=== PATIENT | male | born 1975 | race Caucasian/White ===

== ENCOUNTER 2018-01-15 19:57 | Emergency (ER) | payer SELFPAY ==
[2018-01-15 20:27] VITALS: BP 156/91
[2018-01-15 21:01] LABS: Basophils # (Auto) 0.1 K/mm3 (0.0-0.1); Basophils % (Auto) 0.8 % (0.0-1.8); Eosinophils # (Auto) 0.1 K/mm3 (0.0-0.4); Eosinophils % (Auto) 1.8 % (0.0-4.3); Hematocrit 48.5 % (35.5-45.6); Hemoglobin 15.8 gm/dl (11.8-15.2); Lymphocytes # (Auto) 1.8 K/mm3 (1.2-5.4); Lymphocytes % (Auto) 23.2 % (13.4-35.0); Mean Corpuscular HGB Conc 33 % (32-34); Mean Corpuscular Hemoglobin 28 pg (28-32); Mean Corpuscular Volume 84 fl (84-94); Monocytes # (Auto) 0.8 K/mm3 (0.0-0.8); Monocytes % (Auto) 10.7 % (0.0-7.3); Platelet Count 219 K/mm3 (140-440); Red Blood Count 5.75 M/mm3 (3.65-5.03); Red Cell Distribution Width 14.9 % (13.2-15.2)
[2018-01-15 21:12] LABS: BUN/Creatinine Ratio 13; Blood Urea Nitrogen 16 mg/dL (9-20); Calcium 9.3 mg/dL (8.4-10.2); Hemolysis Index 35
== END 2018-01-15 20:29 | disposition left against medical advice (07) ==
LOC: ED 19:57
DX: R07.9 Chest pain, unspecified (principal); Z53.21 Procedure and treatment not carried out due to patient leaving prior to being seen by health care provider
CPT/HCPCS: 36415; 80048; 84484; 85025; 93005; 93010

== ENCOUNTER 2018-08-19 17:48 | Emergency (ER) | payer SELFPAY ==
[2018-08-19 18:47] LABS: Basophils # (Auto) 0.1 K/mm3 (0.0-0.1); Basophils % (Auto) 1.4 % (0.0-1.8); Eosinophils # (Auto) 0.1 K/mm3 (0.0-0.4); Eosinophils % (Auto) 1.6 % (0.0-4.3); Hemoglobin 15.4 gm/dl (11.8-15.2); Lymphocytes # (Auto) 1.9 K/mm3 (1.2-5.4); Lymphocytes % (Auto) 26.5 % (13.4-35.0); Mean Corpuscular HGB Conc 34 % (32-34); Mean Corpuscular Volume 83 fl (84-94); Monocytes # (Auto) 0.7 K/mm3 (0.0-0.8); Monocytes % (Auto) 9.8 % (0.0-7.3); Platelet Count 275 K/mm3 (140-440); Red Blood Count 5.55 M/mm3 (3.65-5.03); Red Cell Distribution Width 14.5 % (13.2-15.2)
[2018-08-19 19:41] LABS: BUN/Creatinine Ratio 13; Blood Urea Nitrogen 16 mg/dL (9-20); Calcium 8.9 mg/dL (8.4-10.2); Hemolysis Index 69
--- NOTE | 2018-08-19 22:43 | Emergency Department Report ---
ED Psych HPI - General Chief Complaint: Psych Stated Complaint: HEARING THINGS/SEEING THINGS Time Seen by Provider: 08/19/18 21:30 Source: patient Mode of arrival: Ambulatory Limitations: No Limitations - History of Present Illness Initial Comments: 43-year-old male with a past medical history hypertension, asthma, anemia, CAD with stents presents also complains of hallucinations and suicidal thoughts. Patient has been off all his medications including blood pressure and psychiatric medications for the past 2 months. Patient states he felt like he was handling his psychiatric symptoms "on his own". Patient having visual and auditory hallucinations. He is hearing voices screaming at him and seeing shadows. He had thoughts of running out in front of a car to kill himself. He has history of previous suicidal attempts. He denies any physical complaints. He is calm and cooperative at this time. - Related Data Home Medications Medication Instructions Recorded Confirmed Last Taken Lisinopril [Zestril] 10 mg PO QDAY 05/23/18 08/19/18 Unknown Allergies Allergy/AdvReac Type Severity Reaction Status Date / Time haloperidol [From Haldol] Allergy Swelling Verified 05/21/18 05:41 ED Review of Systems ROS: Stated complaint: HEARING THINGS/SEEING THINGS Other details as noted in HPI Comment: All other systems reviewed and negative ED Past Medical Hx - Past Medical History Previous Medical History?: Yes Hx Hypertension: Yes Hx Psychiatric Treatment: Yes (schizo) Hx Asthma: Yes - Surgical History Past Surgical History?: Yes Hx Coronary Stent: Yes Additional Surgical History: stents x 2 - Social History Smoking Status: Current Every Day Smoker Substance Use Type: Alcohol, Cocaine, Heroin - Medications Home Medications: Home Medications Medication Instructions Recorded Confirmed Last Taken Type Lisinopril [Zestril] 10 mg PO QDAY 05/23/18 08/19/18 Unknown History ED Physical Exam - General Limitations: No Limitations - Other Other exam information: General: No limitations, patient is alert in no acute distress Head exam: Atraumatic, normocephalic Eyes exam: Normal appearance, pupils equal reactive to light, extraocular movements intact ENT: Moist mucous membrane, normal oropharynx Neck exam: Normal inspection, full range of motion, no meningismus nontender Respiratory exam: Clear to auscultation bilateral, no wheezes, rales, crackles Cardiovascular: Normal rate and rhythm Abdomen: Soft, nondistended, and nontender, with normal bowel sounds, no rebound, or guarding Extremity: Full range of motion normal inspection no deformity Back: Normal Inspection, full range of motion, no tenderness Neurologic: Alert, oriented x3, cranial nerves intact, no motor or sensory deficit Psychiatric: normal affect, normal mood Skin: Warm, dry, intact ED Course Vital Signs 08/19/18 08/19/18 17:52 21:59 Temperature 98.5 F 97.8 F Pulse Rate 100 H 72 Respiratory 18 16 Rate Blood Pressure 166/88 Blood Pressure 108/60 [Left] O2 Sat by Pulse 99 100 Oximetry ED Medical Decision Making - Lab Data Result diagrams: 08/19/18 18:26 08/19/18 18:26 Lab Results 08/19/18 08/19/18 08/19/18 Range/Units 18:26 18:26 18:26 WBC (4.5-11.0) K/mm3 RBC (3.65-5.03) M/mm3 Hgb (11.8-15.2) gm/dl Hct (35.5-45.6) % MCV (84-94) fl MCH (28-32) pg MCHC (32-34) % RDW (13.2-15.2) % Plt Count (140-440) K/mm3 Lymph % (Auto) (13.4-35.0) % [place] % (Auto) (0.0-7.3) % Eos % (Auto) (0.0-4.3) % Baso % (Auto) (0.0-1.8) % Lymph # (1.2-5.4) K/mm3 [place] # (0.0-0.8) K/mm3 Eos # (0.0-0.4) K/mm3 Baso # (0.0-0.1) K/mm3 Seg Neutrophils % (40.0-70.0) % Seg Neutrophils # (1.8-7.7) K/mm3 Sodium 140 (137-145) mmol/L Potassium 4.2 (3.6-5.0) mmol/L Chloride 101.7 (98-107) mmol/L Carbon Dioxide 25 (22-30) mmol/L Anion Gap 18 mmol/L BUN 16 (9-20) mg/dL Creatinine 1.2 (0.8-1.5) mg/dL Estimated GFR > 60 ml/min BUN/Creatinine Ratio 13 % Glucose 104 H (75-100) mg/dL Calcium 8.9 (8.4-10.2) mg/dL Urine Color (Yellow) Urine Turbidity (Clear) Urine pH (5.0-7.0) Ur Specific [place] (1.003-1.030) Urine Protein (Negative) mg/dL Urine Glucose (UA) (Negative) mg/dL Urine Ketones (Negative) mg/dL Urine Blood (Negative) Urine Nitrite (Negative) Urine Bilirubin (Negative) Urine Urobilinogen (<2.0) mg/dL Ur Leukocyte Esterase (Negative) Urine WBC (Auto) (0.0-6.0) /HPF Urine RBC (Auto) (0.0-6.0) /HPF Urine Mucus /HPF Salicylates < 0.3 L (2.8-20.0) mg/dL Urine Opiates Screen Urine Methadone Screen Acetaminophen < 5.0 L (10.0-30.0) ug/mL Ur Barbiturates Screen Ur Phencyclidine Scrn Ur Amphetamines Screen U Benzodiazepines Scrn Urine Cocaine Screen U Marijuana (THC) Screen Drugs of Abuse Note Plasma/Serum Alcohol (0-0.07) % 08/19/18 08/19/18 08/19/18 Range/Units 18:26 18:26 22:26 WBC 7.1 (4.5-11.0) K/mm3 RBC 5.55 H (3.65-5.03) M/mm3 Hgb 15.4 H (11.8-15.2) gm/dl Hct 46.0 H (35.5-45.6) % MCV 83 L (84-94) fl MCH 28 (28-32) pg MCHC 34 (32-34) % RDW 14.5 (13.2-15.2) % Plt Count 275 (140-440) K/mm3 Lymph % (Auto) 26.5 (13.4-35.0) % [place] % (Auto) 9.8 H (0.0-7.3) % Eos % (Auto) 1.6 (0.0-4.3) % Baso % (Auto) 1.4 (0.0-1.8) % Lymph # 1.9 (1.2-5.4) K/mm3 [place] # 0.7 (0.0-0.8) K/mm3 Eos # 0.1 (0.0-0.4) K/mm3 Baso # 0.1 (0.0-0.1) K/mm3 Seg Neutrophils % 60.7 (40.0-70.0) % Seg Neutrophils # 4.3 (1.8-7.7) K/mm3 Sodium (137-145) mmol/L Potassium (3.6-5.0) mmol/L Chloride (98-107) mmol/L Carbon Dioxide (22-30) mmol/L Anion Gap mmol/L BUN (9-20) mg/dL Creatinine (0.8-1.5) mg/dL Estimated GFR ml/min BUN/Creatinine Ratio % Glucose (75-100) mg/dL Calcium (8.4-10.2) mg/dL Urine Color Yellow (Yellow) Urine Turbidity Clear (Clear) Urine pH 5.0 (5.0-7.0) Ur Specific [place] 1.025 (1.003-1.030) Urine Protein <15 mg/dl (Negative) mg/dL Urine Glucose (UA) Neg (Negative) mg/dL Urine Ketones Tr (Negative) mg/dL Urine Blood Neg (Negative) Urine Nitrite Neg (Negative) Urine Bilirubin Neg (Negative) Urine Urobilinogen 2.0 (<2.0) mg/dL Ur Leukocyte Esterase Neg (Negative) Urine WBC (Auto) < 1.0 (0.0-6.0) /HPF Urine RBC (Auto) 1.0 (0.0-6.0) /HPF Urine Mucus Few /HPF Salicylates (2.8-20.0) mg/dL Urine Opiates Screen Urine Methadone Screen Acetaminophen (10.0-30.0) ug/mL Ur Barbiturates Screen Ur Phencyclidine Scrn Ur Amphetamines Screen U Benzodiazepines Scrn Urine Cocaine Screen U Marijuana (THC) Screen Drugs of Abuse Note Plasma/Serum Alcohol < 0.01 (0-0.07) % 08/19/18 Range/Units 22:26 WBC (4.5-11.0) K/mm3 RBC (3.65-5.03) M/mm3 Hgb (11.8-15.2) gm/dl Hct (35.5-45.6) % MCV (84-94) fl MCH (28-32) pg MCHC (32-34) % RDW (13.2-15.2) % Plt Count (140-440) K/mm3 Lymph % (Auto) (13.4-35.0) % [place] % (Auto) (0.0-7.3) % Eos % (Auto) (0.0-4.3) % Baso % (Auto) (0.0-1.8) % Lymph # (1.2-5.4) K/mm3 [place] # (0.0-0.8) K/mm3 Eos # (0.0-0.4) K/mm3 Baso # (0.0-0.1) K/mm3 Seg Neutrophils % (40.0-70.0) % Seg Neutrophils # (1.8-7.7) K/mm3 Sodium (137-145) mmol/L Potassium (3.6-5.0) mmol/L Chloride (98-107) mmol/L Carbon Dioxide (22-30) mmol/L Anion Gap mmol/L BUN (9-20) mg/dL Creatinine (0.8-1.5) mg/dL Estimated GFR ml/min BUN/Creatinine Ratio % Glucose (75-100) mg/dL Calcium (8.4-10.2) mg/dL Urine Color (Yellow) Urine Turbidity (Clear) Urine pH (5.0-7.0) Ur Specific [place] (1.003-1.030) Urine Protein (Negative) mg/dL Urine Glucose (UA) (Negative) mg/dL Urine Ketones (Negative) mg/dL Urine Blood (Negative) Urine Nitrite (Negative) Urine Bilirubin (Negative) Urine Urobilinogen (<2.0) mg/dL Ur Leukocyte Esterase (Negative) Urine WBC (Auto) (0.0-6.0) /HPF Urine RBC (Auto) (0.0-6.0) /HPF Urine Mucus /HPF Salicylates (2.8-20.0) mg/dL Urine Opiates Screen Presumptive negative Urine Methadone Screen Presumptive negative Acetaminophen (10.0-30.0) ug/mL Ur Barbiturates Screen Presumptive negative Ur Phencyclidine Scrn Presumptive negative Ur Amphetamines Screen Presumptive negative U Benzodiazepines Scrn Presumptive negative Urine Cocaine Screen Presumptive positive U Marijuana (THC) Screen Presumptive negative Drugs of Abuse Note Disclamer Plasma/Serum Alcohol (0-0.07) % - Medical Decision Making Patient requires psychiatric admission. Patient is medically cleared. 1013 and transfer forms signed. - Differential Diagnosis psychosis, HI, SI, noncompliance Critical Care Time: No Critical care attestation.: If time is entered above; I have spent that time in minutes in the direct care of this critically ill patient, excluding procedure time. ED Disposition Clinical Impression: Schizophrenia, Psychosis, Cocaine abuse, Medical clearance for psychiatric admission, Suicidal ideation Disposition: DC/TX-65 PSY HOSP/PSY UNIT Is pt being admited?: No Does the pt Need Aspirin: No Condition: Stable Time of Disposition: 02:47 (awaiting acceptance)
[2018-08-19 22:49] LABS: Bilirubin,Urine NEG (Negative); Blood,Urine NEG (Negative); Color,Urine Yellow (Yellow); Mucus,Urine FEW /HPF; Protein,Urine <15 mg/dL mg/dL (Negative); WBC,Urine < 1.0 /HPF (0.0-6.0)
[2018-08-20 00:27] LABS: Amphetamine Screen,Urine PRESUMPTIVE NEGATIVE; Benzodiazepines Screen,Urine PRESUMPTIVE NEGATIVE; Cannabinoid Screen,Urine PRESUMPTIVE NEGATIVE; Methadone Screen,Urine PRESUMPTIVE NEGATIVE; Opiate Screen,Urine PRESUMPTIVE NEGATIVE
[2018-08-20 00:49] LABS: Cocaine Screen,Urine PRESUMPTIVE POSITIVE
[2018-08-20] MEDS: ZESTRIL PO SCH (10:30)
[2018-08-20] MEDS: ASPIRIN PO SCH (10:35)
--- NOTE | 2018-08-20 14:08 | Consultation ---
History of Present Illness - Reason for Consult Consult date: 08/20/18 Reason for consult: Mental Health Evaluation Requesting physician: SIDRA WHEATLEY - Chief Complaint Chief complaint: "I be hearing all types of stuff" - History of Present Psychiatric Illness 43-year-old AA male who presented to the ER for Ah's and SI's. This patient is known to me. Today the patient is calm and cooperative, but tangent during the assessment. He stated that he felt strange the past 2 days because he was hearing a lot of voices. He stated that the voices was overwhelming, but he acknowledged using recreational drugs during this time. He stated that he was feeling suicidal along with hearing voices when not using "drugs." He stated, "I have no idea what's going on with me." He denies HI's and VH's. He would not confirm or deny SI's and AH's when asked. He denies a poor appetite, but stated that his sleep have been "off." He denies alcohol consumption (etoh). Medications and Allergies Allergies Allergy/AdvReac Type Severity Reaction Status Date / Time haloperidol [From Haldol] Allergy Swelling Verified 05/21/18 05:41 Home Medications Medication Instructions Recorded Confirmed Last Taken Type Lisinopril [Zestril] 10 mg PO QDAY 05/23/18 08/19/18 Unknown History Active Meds: Active Medications Aspirin (Aspirin) 325 mg PO QDAY [facility] Last Admin: 08/20/18 10:35 Dose: 325 mg Documented by: Lisinopril (Zestril) 10 mg PO QDAY [facility] Last Admin: 08/20/18 10:30 Dose: 10 mg Documented by: Past psychiatric history - Past Medical History Past Medical History: hypertension Past Surgical History: No surgical history - past Psychiatric treatment and history psychiatric treatment history: Hx of substance abuse. Denies a fam psy hx. - Social History Social history: lives with family Mental Status Exam - Vital signs Last Vital Signs Temp 98.3 F 08/20/18 14:06 Pulse 78 08/20/18 14:06 Resp 18 08/20/18 14:06 BP 134/69 08/20/18 14:06 Pulse Ox 98 08/20/18 14:06 - Exam Narrative exam: MSE: Appearance: calm, cooperative Behavior: regular eye contact Speech: regular rate and tone Mood: "okay" Affect: constricted Thought Process: tangential Thought Content: denies HI's and VH's, paranoia Motor Activity: sitting up in the bed Cognition: A/O x 3 Insight: variable Judgment: variable Results Result Diagrams: 08/19/18 18:26 08/19/18 18:26 Abnormal lab results 08/19/18 08/19/18 08/19/18 Range/Units 18:26 18:26 18:26 RBC (3.65-5.03) M/mm3 Hgb (11.8-15.2) gm/dl Hct (35.5-45.6) % MCV (84-94) fl [place] % (Auto) (0.0-7.3) % Glucose 104 H (75-100) mg/dL Salicylates < 0.3 L (2.8-20.0) mg/dL Acetaminophen < 5.0 L (10.0-30.0) ug/mL 08/19/18 Range/Units 18:26 RBC 5.55 H (3.65-5.03) M/mm3 Hgb 15.4 H (11.8-15.2) gm/dl Hct 46.0 H (35.5-45.6) % MCV 83 L (84-94) fl [place] % (Auto) 9.8 H (0.0-7.3) % Glucose (75-100) mg/dL Salicylates (2.8-20.0) mg/dL Acetaminophen (10.0-30.0) ug/mL All other labs normal. Assessment and Plan Assessment and plan: Impression: Unspecified Mood DO with psy features. Substance Use DO (cocaine). Today the patient is calm and cooperative, but tangent during the assessment. DDx: R/O Bipolar Do with psychosis, R/O Substance Induced Psychosis Recommendation/Plan: Continue 1013 and start Seroquel 100 mg Po HS for psychosis. Discussed the possible metabolic side effects of Seroquel with the patient. Dispo: The patient was referred to inpatient psy services. Will staff with Dr Jelani Barrow.
[2018-08-21] MEDS: ASPIRIN PO SCH (11:58)
[2018-08-21] MEDS: ZESTRIL PO SCH (11:59)
--- NOTE | 2018-08-21 13:55 | Progress Note ---
Subjective - Reason for Consult Consult date: 08/21/18 Reason for consult: Psychiatry Follow-up - Chief Complaint Chief complaint: "I will take my medication tonight" 3-year-old AA male who presented to the ER for Ah's and SI's. This patient is known to me. Today the patient is calm during the assessment. He stated that he feel "A little better." He stated that the voices are still active, but not as bad as yesterday per the patient. He was asked about why he refused the Seroquel last, he stated, "I thought I would get another pill." He denies SI/HI's and VH's. Mental Status Exam - Vital signs Last Vital Signs Temp 97.7 F 08/21/18 08:20 Pulse 75 08/21/18 11:59 Resp 18 08/21/18 08:20 BP 134/71 08/21/18 11:59 Pulse Ox 99 08/21/18 08:20 - Exam Narrative exam: MSE: Appearance: calm, cooperative Behavior: regular eye contact Speech: regular rate and tone Mood: "okay" Affect: constricted Thought Process: tangential Thought Content: denies SI/HI's and VH's Motor Activity: sitting up in the bed Cognition: A/O x 3 Insight: variable Judgment: fair Assessment and Plan Impression: Unspecified Mood DO with psy features. Substance Use DO (cocaine). Today the patient is calm during the assessment. DDx: R/O Bipolar Do with psychosis, R/O Substance Induced Psychosis Recommendation/Plan: Continue 1013 and continue Seroquel 100 mg Po HS for psychosis. Discussed the possible metabolic side effects of Seroquel with the patient. Dispo: The patient was referred to inpatient psy services. Will staff with Dr Simth Barrow.
[2018-08-22 05:19] VITALS: BP 117/69
--- NOTE | 2018-08-22 14:08 | Progress Note ---
Subjective - Reason for Consult Consult date: 08/22/18 Reason for consult: Psychiatric Follow-up Evaluation - Chief Complaint Chief complaint: Patient not seen. Accepted to [facility]. Mental Status Exam - Vital signs Last Vital Signs Temp 97.9 F 08/22/18 02:00 Pulse 76 08/22/18 02:00 Resp 16 08/22/18 02:00 BP 117/69 08/22/18 02:00 Pulse Ox 99 08/22/18 02:00 - Exam Narrative exam: Mental Status Exam Appearance: calm, cooperative Behavior: regular eye contact Speech: regular rate and tone Mood: "okay" Affect: constricted Thought Process: tangential Thought Content: denies SI/HI's and VH's Motor Activity: sitting up in the bed Cognition: A/O x 3 Insight: variable Judgment: fair Assessment and Plan Impression: Unspecified Mood DO with psy features. Substance Use DO (cocaine). Today the patient is calm during the assessment. DDx: R/O Bipolar Do with psychosis, R/O Substance Induced Psychosis Recommendation/Plan: Continue 1013 and continue Seroquel 100 mg Po HS for psychosis. Discussed the possible metabolic side effects of Seroquel with the patient. Disposition: The patient was referred to inpatient psy services. Will staff with Dr. Smith Barrow.
== END 2018-08-22 06:18 ==
LOC: ED 17:48 → EEVIPCON 17:48 → ED 08-22 06:18
DX: F39 Unspecified mood [affective] disorder (principal); F20.0 Paranoid schizophrenia; F23 Brief psychotic disorder; I10 Essential (primary) hypertension; J45.909 Unspecified asthma, uncomplicated; F17.200 Nicotine dependence, unspecified, uncomplicated; F12.10 Cannabis abuse, uncomplicated; F15.10 Other stimulant abuse, uncomplicated
CPT/HCPCS: 36415; 80048; 80307; 81001; 85025; 99285; G0480; 80320

== ENCOUNTER 2018-09-13 00:06 | Emergency (ER) | payer SELFPAY ==
[2018-09-13 01:36] LABS: Basophils # (Auto) 0.1 K/mm3 (0.0-0.1); Basophils % (Auto) 0.8 % (0.0-1.8); Eosinophils % (Auto) 0.4 % (0.0-4.3); Hematocrit 44.6 % (35.5-45.6); Hemoglobin 14.7 gm/dl (11.8-15.2); Lymphocytes % (Auto) 21.2 % (13.4-35.0); Mean Corpuscular HGB Conc 33 % (32-34); Mean Corpuscular Hemoglobin 27 pg (28-32); Mean Corpuscular Volume 82 fl (84-94); Monocytes # (Auto) 0.8 K/mm3 (0.0-0.8); Platelet Count 284 K/mm3 (140-440); Red Blood Count 5.42 M/mm3 (3.65-5.03); Red Cell Distribution Width 14.4 % (13.2-15.2)
[2018-09-13 01:59] LABS: BUN/Creatinine Ratio 11; Blood Urea Nitrogen 13 mg/dL (9-20); Calcium 8.7 mg/dL (8.4-10.2); Hemolysis Index 13
--- NOTE | 2018-09-13 02:28 | Emergency Department Report ---
HPI - General Chief Complaint: Psych Time Seen by Provider: 09/13/18 02:14 - HPI HPI: Room 6 The patient is a 43-year-old male presenting with a chief complaint of suicidal ideation and hallucinations. The patient states he's had suicidal ideation for approximately one week since the of his grandmother. The patient states his plan was to walk in front of a vehicle but he denies any active attempt at harming himself. Patient also admits to auditory and visual hallucinations since yesterday. The patient states he is seeing people that he knows are not there. Patient admits to auditory hallucinations hearing "screaming" inside of his head. Patient admits to using Celena and cocaine today Location: Mental state Duration: [See above] Quality: Suicidal Severity: Severe Modifying factors: [see above] Context: [see above] Mode of transportation: [not driving] ED Past Medical Hx - Past Medical History Hx Hypertension: Yes Hx Psychiatric Treatment: Yes (schizophrenia) Hx Asthma: Yes - Surgical History Hx Coronary Stent: Yes Additional Surgical History: stents x 2 - Family History Family history: no significant - Social History Smoking Status: Current Every Day Smoker (1/2 pack per day) Substance Use Type: Alcohol (occasional), Cocaine, Heroin, Other (Celena) - Medications Home Medications: Home Medications Medication Instructions Recorded Confirmed Last Taken Type Lisinopril [Zestril] 10 mg PO QDAY 05/23/18 08/19/18 Unknown History ED Review of Systems ROS: Stated complaint: MH EVAL Other details as noted in HPI Constitutional: no symptoms reported Eyes: denies: eye pain ENT: denies: throat pain Respiratory: no symptoms reported Cardiovascular: denies: chest pain Endocrine: no symptoms reported Gastrointestinal: denies: abdominal pain Genitourinary: denies: dysuria Musculoskeletal: denies: back pain Neurological: denies: headache Psychiatric: auditory hallucinations, visual hallucinations, suicidal thoughts. denies: homicidal thoughts Physical Exam - Physical Exam Vital Signs: Vital Signs 09/13/18 01:04 Temperature 98.3 F Pulse Rate 94 H Respiratory 18 Rate Blood Pressure 140/80 O2 Sat by Pulse 96 Oximetry Physical Exam: GENERAL: The patient is well-developed well-nourished male lying on stretcher not appearing to be in acute distress. [] HEENT: Normocephalic. Atraumatic. Extraocular motions are intact. Patient has moist mucous membranes. NECK: Supple. Trachea midline CHEST/LUNGS: Clear to auscultation. There is no respiratory distress noted. HEART/CARDIOVASCULAR: Regular. There is no tachycardia. There is no gallop rub or murmur. ABDOMEN: Abdomen is soft, nontender. Patient has normal bowel sounds. There is no abdominal distention. SKIN: There is no rash. There is no edema. There is no diaphoresis. NEURO: The patient is awake, alert, and oriented. The patient is cooperative. The patient has normal speech MUSCULOSKELETAL: There is no evidence of acute injury. ED Course Vital Signs 09/13/18 01:04 Temperature 98.3 F Pulse Rate 94 H Respiratory 18 Rate Blood Pressure 140/80 O2 Sat by Pulse 96 Oximetry ED Medical Decision Making - Lab Data Result diagrams: 09/13/18 01:14 09/13/18 01:14 Laboratory Tests 09/13/18 09/13/18 09/13/18 01:14 01:14 01:14 WBC RBC Hgb Hct MCV MCH MCHC RDW Plt Count Lymph % (Auto) [place] % (Auto) Eos % (Auto) Baso % (Auto) Lymph # [place] # Eos # Baso # Seg Neutrophils % Seg Neutrophils # Sodium 143 Potassium 4.0 Chloride 103.7 Carbon Dioxide 27 Anion Gap 16 BUN 13 Creatinine 1.2 Estimated GFR > 60 BUN/Creatinine Ratio 11 Glucose 110 H Calcium 8.7 Total Creatine Kinase CK-MB (CK-2) CK-MB (CK-2) Rel Index Troponin T Urine Color Urine Turbidity Urine pH Ur Specific [place] Urine Protein Urine Glucose (UA) Urine Ketones Urine Blood Urine Nitrite Urine Bilirubin Urine Urobilinogen Ur Leukocyte Esterase Urine WBC (Auto) Urine RBC (Auto) U Epithel Cells (Auto) Urine Mucus Salicylates < 0.3 L Urine Opiates Screen Urine Methadone Screen Acetaminophen < 5.0 L Ur Barbiturates Screen Ur Phencyclidine Scrn Ur Amphetamines Screen U Benzodiazepines Scrn U Marijuana (THC) Screen Plasma/Serum Alcohol 09/13/18 09/13/18 09/13/18 01:14 01:14 02:00 WBC 9.5 RBC 5.42 H Hgb 14.7 Hct 44.6 MCV 82 L MCH 27 L MCHC 33 RDW 14.4 Plt Count 284 Lymph % (Auto) 21.2 [place] % (Auto) 8.0 H Eos % (Auto) 0.4 Baso % (Auto) 0.8 Lymph # 2.0 [place] # 0.8 Eos # 0.0 Baso # 0.1 Seg Neutrophils % 69.6 Seg Neutrophils # 6.6 Sodium Potassium Chloride Carbon Dioxide Anion Gap BUN Creatinine Estimated GFR BUN/Creatinine Ratio Glucose Calcium Total Creatine Kinase CK-MB (CK-2) CK-MB (CK-2) Rel Index Troponin T < 0.010 Urine Color Urine Turbidity Urine pH Ur Specific [place] Urine Protein Urine Glucose (UA) Urine Ketones Urine Blood Urine Nitrite Urine Bilirubin Urine Urobilinogen Ur Leukocyte Esterase Urine WBC (Auto) Urine RBC (Auto) U Epithel Cells (Auto) Urine Mucus Salicylates Urine Opiates Screen Urine Methadone Screen Acetaminophen Ur Barbiturates Screen Ur Phencyclidine Scrn Ur Amphetamines Screen U Benzodiazepines Scrn U Marijuana (THC) Screen Plasma/Serum Alcohol < 0.01 09/13/18 09/13/18 09/13/18 02:00 02:30 02:30 WBC RBC Hgb Hct MCV MCH MCHC RDW Plt Count Lymph % (Auto) [place] % (Auto) Eos % (Auto) Baso % (Auto) Lymph # [place] # Eos # Baso # Seg Neutrophils % Seg Neutrophils # Sodium Potassium Chloride Carbon Dioxide Anion Gap BUN Creatinine Estimated GFR BUN/Creatinine Ratio Glucose Calcium Total Creatine Kinase 153 CK-MB (CK-2) 1.9 CK-MB (CK-2) Rel Index 1.2 Troponin T Urine Color Yellow Urine Turbidity Clear Urine pH 5.0 Ur Specific [place] 1.030 Urine Protein 30 mg/dl Urine Glucose (UA) Neg Urine Ketones Tr Urine Blood Neg Urine Nitrite Neg Urine Bilirubin Neg Urine Urobilinogen 2.0 Ur Leukocyte Esterase Neg Urine WBC (Auto) 1.0 Urine RBC (Auto) 4.0 U Epithel Cells (Auto) < 1.0 Urine Mucus 3+ Salicylates Urine Opiates Screen Presumptive negative Urine Methadone Screen Presumptive negative Acetaminophen Ur Barbiturates Screen Presumptive negative Ur Phencyclidine Scrn Presumptive negative Ur Amphetamines Screen Presumptive negative U Benzodiazepines Scrn Presumptive negative U Marijuana (THC) Screen Presumptive negative Plasma/Serum Alcohol - Differential Diagnosis suicidal ideation Critical care attestation.: If time is entered above; I have spent that time in minutes in the direct care of this critically ill patient, excluding procedure time. ED Disposition Clinical Impression: Suicidal ideation, Auditory hallucinations, Visual hallucinations, Cocaine abuse Disposition: DC/TX-65 PSY HOSP/PSY UNIT Is pt being admited?: No Does the pt Need Aspirin: No Condition: Serious Referrals: DARLENE WHITEFORMERLY [facility] MD CHRISTIN [Primary Care Provider] - 3-5 Days Time of Disposition: 02:26 (awaiting acceptance)
[2018-09-13 03:07] LABS: Bilirubin,Urine NEG (Negative); Blood,Urine NEG (Negative); Color,Urine Yellow (Yellow); Mucus,Urine 3+ /HPF
[2018-09-13 03:15] LABS: Amphetamine Screen,Urine PRESUMPTIVE NEGATIVE; Benzodiazepines Screen,Urine PRESUMPTIVE NEGATIVE; Cannabinoid Screen,Urine PRESUMPTIVE NEGATIVE; Methadone Screen,Urine PRESUMPTIVE NEGATIVE; Opiate Screen,Urine PRESUMPTIVE NEGATIVE
[2018-09-13 03:17] LABS: Creatine Kinase MB 1.9 ng/mL (0.0-4.0)
[2018-09-13 03:47] LABS: Cocaine Screen,Urine PRESUMPTIVE POSITIVE
--- NOTE | 2018-09-13 11:56 | Consultation ---
History of Present Illness - Reason for Consult Consult date: 09/13/18 Reason for consult: Mental Health Evaluation Requesting physician: FREDA RAMSAY - Chief Complaint Chief complaint: "It's the drugs" - History of Present Psychiatric Illness 43-year-old AA male who presented to the ER for SI's and AH's. This patient is known to me. Today the patient is calm and cooperative during the assessment. He stated that his issues is using cocaine. He stated that he was "high" yesterday when he arrived at the ER, but could not tell me the provider what he said during triage. The patient has several ER visits in the past for similar behavior. The patient home medication is Seroquel. He stated that he haven't been compliant with his medication since his last visit to the hospital. He stated, 'I have to do something about my addiction." He denies SI/HI's and AVH's. He denies erratic sleep and a poor appetite. He denies alcohol consumption (etoh). Medications and Allergies Allergies Allergy/AdvReac Type Severity Reaction Status Date / Time haloperidol [From Haldol] Allergy Swelling Verified 05/21/18 05:41 Home Medications Medication Instructions Recorded Confirmed Last Taken Type Lisinopril [Zestril] 10 mg PO QDAY 05/23/18 09/13/18 Unknown History Past psychiatric history - Past Medical History Past Medical History: No medical history Past Surgical History: No surgical history - past Psychiatric treatment and history psychiatric treatment history: Hx of substance abuse. Denies a fam psy hx. - Social History Social history: lives with family Mental Status Exam - Vital signs Last Vital Signs Temp 97.6 F 09/13/18 08:06 Pulse 70 09/13/18 08:06 Resp 16 09/13/18 08:30 BP 105/63 09/13/18 08:06 Pulse Ox 99 09/13/18 08:30 - Exam Narrative exam: MSE: Appearance: calm, cooperative Behavior: regular eye contact Speech: regular rate and tone Mood: "okay" Affect: congruent to mood Thought Process: circumstantial Thought Content: denies SI/HI's and AVH's Motor Activity: sitting up in the bed Cognition: A/O x 3 Insight: variable to fair Judgment: fair Results Result Diagrams: 09/13/18 01:14 09/13/18 01:14 Abnormal lab results 09/13/18 09/13/18 09/13/18 Range/Units 01:14 01:14 01:14 RBC (3.65-5.03) M/mm3 MCV (84-94) fl MCH (28-32) pg Gilchrist % (Auto) (0.0-7.3) % Glucose 110 H (75-100) mg/dL Salicylates < 0.3 L (2.8-20.0) mg/dL Acetaminophen < 5.0 L (10.0-30.0) ug/mL 09/13/18 Range/Units 01:14 RBC 5.42 H (3.65-5.03) M/mm3 MCV 82 L (84-94) fl MCH 27 L (28-32) pg Gilchrist % (Auto) 8.0 H (0.0-7.3) % Glucose (75-100) mg/dL Salicylates (2.8-20.0) mg/dL Acetaminophen (10.0-30.0) ug/mL All other labs normal. Assessment and Plan Assessment and plan: Impression: Substance Induced Mood/Psychotic DO. Substance Use DO (cocaine). Today the patient is calm and cooperative during the assessment. DDx: R/O Bipolar Do with psychosis Recommendation/Plan: Reevaluate 1013 in 24 hours. Start 1013 and start Seroquel 100 mg PO HS for mood/psychosis. Discussed the possible metabolic side effects of Seroquel with the patient. Dispo: If the patient's 1013 is rescinded, the patient can follow up with [facility] for outpatient psy services. Will staff with Dr Maciel.
[2018-09-14 11:40] VITALS: BP 109/63
--- NOTE | 2018-09-14 11:40 | Progress Note ---
Subjective - Reason for Consult Consult date: 09/14/18 Reason for consult: Psychiatry Follow-up - Chief Complaint Chief complaint: "I will do better" 43-year-old AA male who presented to the ER for SI's and AH's. This patient is known to me. Today the patient is calm and cooperative during the assessment. He stated that he will do his best to stay "clean" and make better decisions in life. He stated that he will follow up with outpatient psy services once discharged. He denies SI/HI's and AVH's. Mental Status Exam - Vital signs Last Vital Signs Temp 98.3 F 09/14/18 01:48 Pulse 62 09/14/18 01:48 Resp 18 09/14/18 01:48 BP 98/53 09/14/18 01:48 Pulse Ox 98 09/14/18 01:48 - Exam Narrative exam: MSE: Appearance: calm, cooperative Behavior: regular eye contact Speech: regular rate and tone Mood: "okay" Affect: congruent to mood Thought Process: linear Thought Content: denies SI/HI's and AVH's Motor Activity: sitting up in the bed Cognition: A/O x 3 Insight: appropriate Judgment: appropriate Assessment and Plan Impression: Substance Induced Mood/Psychotic DO. Substance Use DO (cocaine). Today the patient is calm and cooperative during the assessment. The p patient is no threat to self. The patient's psychosis has resolved. DDx: R/O Bipolar Do with psychosis Recommendation/Plan: Rescind 1013. Continue Seroquel 100 mg PO HS. Discussed the possible metabolic side effects of Seroquel with the patient. Dispo: The patient can follow up with [facility] for outpatient psy services. Will staff with Dr Maciel.
--- NOTE | 2018-09-14 14:48 | Emergency Department Report ---
Blank Doc - Documentation Documentation: I was asked by the psychiatric team to provide discharge paperwork/instructions and a prescription for this patient. They have decided that the patient is no longer a danger to himself or others, does not require inpatient psychiatric treatment and they have rescinded the 1013. I went and spoke with the patient who does continue to deny any suicidal ideations. He will be given an outpatient referral for the [facility]. We discussed staying away from cocaine use or any further illicit drug use. He will return to the emergency department immediately with any thoughts of harming himself or others, any acute distress. He was given a short supply of the Seroquel that was recommended by the psychiatric team
== END 2018-09-14 14:50 | disposition home or self-care (01) ==
LOC: EEVIPCON 00:06 → ED 00:06
DX: F23 Brief psychotic disorder (principal); F39 Unspecified mood [affective] disorder; F14.10 Cocaine abuse, uncomplicated; F17.200 Nicotine dependence, unspecified, uncomplicated; I10 Essential (primary) hypertension; J45.909 Unspecified asthma, uncomplicated; F15.10 Other stimulant abuse, uncomplicated; Z88.8 Allergy status to other drugs, medicaments and biological substances
CPT/HCPCS: 36415; 80048; 80307; 81001; 82550; 82553; 84484; 85025; 99284; G0480; 80320

== ENCOUNTER 2018-09-18 23:05 | Inpatient (IN) | payer OTHER ==
[2018-09-19] MEDS ORDERED: ASPIRIN PO ONE ×2 (00:02→07:19)
[2018-09-19 00:12] LABS: Hematocrit 50.5 % (35.5-45.6); Hemoglobin 17.2 gm/dl (11.8-15.2); Mean Corpuscular HGB Conc 34 % (32-34); Mean Corpuscular Volume 82 fl (84-94); Platelet Count 296 K/mm3 (140-440); Red Blood Count 6.18 M/mm3 (3.65-5.03); Red Cell Distribution Width 14.5 % (13.2-15.2)
[2018-09-19 00:28] LABS: BUN/Creatinine Ratio 11; Blood Urea Nitrogen 12 mg/dL (9-20); Calcium 9.1 mg/dL (8.4-10.2); Hemolysis Index 16
[2018-09-19 03:34] LABS: Basophils % (Manual) 0 % (0.0-1.8); Platelet Estimate Consistent w Auto; RBC Morphology Normal; Total Cells Counted 100
[2018-09-19 07:44] LABS: Amphetamine Screen,Urine PRESUMPTIVE NEGATIVE; Benzodiazepines Screen,Urine PRESUMPTIVE NEGATIVE; Cannabinoid Screen,Urine PRESUMPTIVE NEGATIVE; Cocaine Screen,Urine PRESUMPTIVE POSITIVE; Methadone Screen,Urine PRESUMPTIVE NEGATIVE; Opiate Screen,Urine PRESUMPTIVE NEGATIVE
[2018-09-19] MEDS ORDERED: NITRO-BID 2% TP ONE (07:56)
--- NOTE | 2018-09-19 07:59 | Emergency Department Report ---
ED Chest Pain HPI - General Chief Complaint: Psych Stated Complaint: SEEING THINGS THAT ARE THERE/CHEST PAIN Time Seen by Provider: 09/19/18 07:17 Source: patient Mode of arrival: Ambulatory Limitations: No Limitations - History of Present Illness Initial Comments: Since a 49 year old male who has been here since the evening of the fifth. On my encounter he was in the psychiatric area. Apparently he told the nurse that he was having suicidal ideation as per my conversation with the nurse on the shift superintendent. However, on my encounter he stated that he was here for pressure in his left chest. He does have a history of schizophrenia. He was coherent when I spoke to him; he was able to tell me he had 2 prior stents placed in [facility] in [place] 2014. He is not currently seeing a floor assembler. He admits that he was using "agustina and Percocet" last night. He did not express a specific desire of self-harm. He did not appear agitated. He was not hallucinating. He did appear to be easily comfortable. I advised the nursing staff of the need for a repeat EKG. I reviewed the left. There is mild J-point elevation of approximately 1 mm in V2 and V3. I also advised the nursing staff to place the patient in a medical bed as he will be admitted for chest pain. I don't find any indication that the patient requires a 1013. He has been entirely cooperative. Complaint: chest pain -: Gradual, hour(s) Onset: associated with drug use Pain Location: left chest Pain Radiation: none Severity: moderate Severity scale (0 -10): 4 Quality: heaviness Consistency: constant Improves With: nothing Worsens With: nothing Context: other (history of stents) re: denies: dyspnea Treatments Prior to Arrival: none Aspirin use within the Past 7 Days: (0) No - Related Data Home Medications Medication Instructions Recorded Confirmed Last Taken Lisinopril [Zestril] 10 mg PO QDAY 05/23/18 09/13/18 Unknown Previous Rx's Medication Instructions Recorded Last Taken Type Quetiapine Fumarate [Seroquel] 100 mg PO QHS #20 tablet 09/14/18 Unknown Rx Allergies Allergy/AdvReac Type Severity Reaction Status Date / Time haloperidol [From Haldol] Allergy Swelling Verified 05/21/18 05:41 Heart Score - HEART Score History: Highly suspicious EKG: Significant ST-depression Age: < 45 Risk factors: > 3 risk factors or hx of atherosclerotic disease Troponin: < normal limit HEART Score: 6 - Critical Actions Critical Actions: 4-6 pts:12-16.6% risk of adverse cardiac event. Should be admitted ED Review of Systems ROS: Stated complaint: SEEING THINGS THAT ARE THERE/CHEST PAIN Other details as noted in HPI Constitutional: denies: chills, fever Eyes: denies: eye pain, eye discharge, vision change ENT: denies: ear pain, throat pain Respiratory: shortness of breath. denies: cough, wheezing Cardiovascular: chest pain. denies: palpitations Endocrine: no symptoms reported Gastrointestinal: denies: abdominal pain, nausea, diarrhea Genitourinary: denies: urgency, dysuria Musculoskeletal: denies: back pain, joint swelling, arthralgia Skin: denies: rash, lesions Neurological: denies: headache, weakness, paresthesias Psychiatric: as per HPI (I do not find this patient to be suicidal, agitated nor actively hallucinating. He is cooperating. I don't find 1013 criteria.). denies: anxiety, depression Hematological/Lymphatic: denies: easy bleeding, easy bruising ED Past Medical Hx - Past Medical History Previous Medical History?: Yes Hx Hypertension: Yes Hx Psychiatric Treatment: Yes (schizophrenia) Hx Asthma: Yes - Surgical History Hx Coronary Stent: Yes Additional Surgical History: stents x 2 - Social History Smoking Status: Current Every Day Smoker Substance Use Type: Alcohol, Methamphetamines, Other (opioids) - Medications Home Medications: Home Medications Medication Instructions Recorded Confirmed Last Taken Type Lisinopril [Zestril] 10 mg PO QDAY 05/23/18 09/13/18 Unknown History Quetiapine Fumarate [Seroquel] 100 mg PO QHS #20 tablet 09/14/18 Unknown Rx ED Physical Exam - General Limitations: No Limitations General appearance: alert, in no apparent distress - Head Head exam: Present: atraumatic, normocephalic - Eye Eye exam: Present: normal appearance. Absent: scleral icterus - ENT ENT exam: Present: mucous membranes moist - Neck Neck exam: Present: normal inspection. Absent: tenderness, meningismus - Respiratory Respiratory exam: Present: normal lung sounds bilaterally. Absent: respiratory distress - Cardiovascular Cardiovascular Exam: Present: regular rate, normal rhythm. Absent: systolic murmur, diastolic murmur, rubs, gallop - GI/Abdominal GI/Abdominal exam: Present: soft, normal bowel sounds. Absent: distended, tenderness, guarding, rebound - Rectal Rectal exam: Present: deferred - Extremities Exam Extremities exam: Present: normal inspection - Back Exam Back exam: Present: normal inspection - Neurological Exam Neurological exam: Present: alert, oriented X3, CN II-XII intact. Absent: motor sensory deficit - Psychiatric Psychiatric exam: Present: normal affect, normal mood - Skin Skin exam: Present: warm, dry, intact, normal color. Absent: rash ED Course Vital Signs 09/18/18 09/19/18 09/19/18 23:57 03:04 04:35 Temperature 98.7 F 97.2 F L 97.7 F Pulse Rate 94 H 80 83 Respiratory 18 18 17 Rate Blood Pressure 130/77 119/88 Blood Pressure 128/81 [Left] O2 Sat by Pulse 99 98 98 Oximetry 09/19/18 09/19/18 09/19/18 07:33 07:34 07:36 Temperature Pulse Rate 85 83 83 Respiratory 15 16 14 Rate Blood Pressure 139/89 139/89 Blood Pressure [Left] O2 Sat by Pulse 97 98 98 Oximetry - Reevaluation(s) Reevaluation #1: Dr. Mcdonnell and the test center administrator on-call was immediately tech stated the repeat EKG. There was persistent J-point elevation in the septal leads and now inferolateral T-wave inversion. It is uncertain whether this patient actually meets STEMI criteria. However, he does have ongoing chest pressure. Therefore a STEMI code was called to facilitate the patient's cardiac catheterization recommended by Dr. Mcdonnell. 09/19/18 08:14 09/19/18 08:16 The hospitalist was notified of the case and need for admission. ADRIAN score - Adrian Score Age > 65: (0) No Aspirin use within the Past 7 Days: (0) No 3 or more CAD Risk Factors: (0) No 2 or more Angina events in past 24 hrs: (1) Yes Known CAD with more than 50% Stenosis: (1) Yes Elevated Cardiac Markers: (0) No ST Deviation Greater than 0.5mm: (1) Yes ADRIAN Score: 3 ED Medical Decision Making - Lab Data Result diagrams: 09/18/18 23:52 09/18/18 23:52 Laboratory Results - last 24 hr 09/18/18 09/18/18 09/18/18 23:52 23:52 23:52 WBC RBC Hgb Hct MCV MCH MCHC RDW Plt Count Add Manual Diff Total Counted Seg Neuts % (Manual) Band Neutrophils % Lymphocytes % (Manual) Reactive Lymphs % (Man) Monocytes % (Manual) Eosinophils % (Manual) Basophils % (Manual) Metamyelocytes % Myelocytes % Promyelocytes % Blast Cells % Nucleated RBC % Seg Neutrophils # Man Band Neutrophils # Lymphocytes # (Manual) Abs React Lymphs (Man) Monocytes # (Manual) Eosinophils # (Manual) Basophils # (Manual) Metamyelocytes # Myelocytes # Promyelocytes # Blast Cells # WBC Morphology Hypersegmented Neuts Hyposegmented Neuts Hypogranular Neuts Smudge Cells Toxic Granulation Toxic Vacuolation Dohle Bodies Pelger-Huet Anomaly Lula Rods Platelet Estimate Clumped Platelets Plt Clumps, EDTA Large Platelets Giant Platelets Platelet Satelliting Plt Morphology Comment RBC Morphology Dimorphic RBCs Polychromasia Hypochromasia Poikilocytosis Anisocytosis Microcytosis Macrocytosis Spherocytes Pappenheimer Bodies Sickle Cells Target Cells Tear Drop Cells Ovalocytes Helmet Cells [place] Bodies [place]ev[place] Rings Scott Cells Bite Cells Crenated Cell Elliptocytes Acanthocytes (Spur) Rouleaux Hemoglobin C Crystals Schistocytes Malaria parasites Waldo Bodies Hem Pathologist Commnt Sodium 139 Potassium 4.2 Chloride 98.5 Carbon Dioxide 27 Anion Gap 18 BUN 12 Creatinine 1.1 Estimated GFR > 60 BUN/Creatinine Ratio 11 Glucose 106 H Calcium 9.1 Troponin T Salicylates < 0.3 L Urine Opiates Screen Urine Methadone Screen Acetaminophen < 5.0 L Ur Barbiturates Screen Ur Phencyclidine Scrn Ur Amphetamines Screen U Benzodiazepines Scrn Urine Cocaine Screen U Marijuana (THC) Screen Drugs of Abuse Note Plasma/Serum Alcohol 09/18/18 09/18/18 09/19/18 23:52 23:52 00:00 WBC 10.3 RBC 6.18 H Hgb 17.2 H Hct 50.5 H MCV 82 L MCH 28 MCHC 34 RDW 14.5 Plt Count 296 Add Manual Diff Complete Total Counted 100 Seg Neuts % (Manual) 69.0 Band Neutrophils % 0 Lymphocytes % (Manual) 25.0 Reactive Lymphs % (Man) 0 Monocytes % (Manual) 5.0 Eosinophils % (Manual) 1.0 Basophils % (Manual) 0 Metamyelocytes % 0 Myelocytes % 0 Promyelocytes % 0 Blast Cells % 0 Nucleated RBC % Not Reportable Seg Neutrophils # Man 7.1 Band Neutrophils # 0.0 Lymphocytes # (Manual) 2.6 Abs React Lymphs (Man) 0.0 Monocytes # (Manual) 0.5 Eosinophils # (Manual) 0.1 Basophils # (Manual) 0.0 Metamyelocytes # 0.0 Myelocytes # 0.0 Promyelocytes # 0.0 Blast Cells # 0.0 WBC Morphology Not Reportable Hypersegmented Neuts Not Reportable Hyposegmented Neuts Not Reportable Hypogranular Neuts Not Reportable Smudge Cells Not Reportable Toxic Granulation Not Reportable Toxic Vacuolation Not Reportable Dohle Bodies Not Reportable Pelger-Huet Anomaly Not Reportable Lula Rods Not Reportable Platelet Estimate Consistent w auto Clumped Platelets Not Reportable Plt Clumps, EDTA Not Reportable Large Platelets Not Reportable Giant Platelets Not Reportable Platelet Satelliting Not Reportable Plt Morphology Comment Not Reportable RBC Morphology Normal Dimorphic RBCs Not Reportable Polychromasia Not Reportable Hypochromasia Not Reportable Poikilocytosis Not Reportable Anisocytosis Not Reportable Microcytosis Not Reportable Macrocytosis Not Reportable Spherocytes Not Reportable Pappenheimer Bodies Not Reportable Sickle Cells Not Reportable Target Cells Not Reportable Tear Drop Cells Not Reportable Ovalocytes Not Reportable Helmet Cells Not Reportable [place] Bodies Not Reportable [place]ev[place] Rings Not Reportable [place] Cells Not Reportable Bite Cells Not Reportable Crenated Cell Not Reportable Elliptocytes Not Reportable Acanthocytes (Spur) Not Reportable Rouleaux Not Reportable Hemoglobin C Crystals Not Reportable Schistocytes Not Reportable Malaria parasites Not Reportable Waldo Bodies Not Reportable Hem Pathologist Commnt No Sodium Potassium Chloride Carbon Dioxide Anion Gap BUN Creatinine Estimated GFR BUN/Creatinine Ratio Glucose Calcium Troponin T < 0.010 Salicylates Urine Opiates Screen Urine Methadone Screen Acetaminophen Ur Barbiturates Screen Ur Phencyclidine Scrn Ur Amphetamines Screen U Benzodiazepines Scrn Urine Cocaine Screen U Marijuana (THC) Screen Drugs of Abuse Note Plasma/Serum Alcohol < 0.01 09/19/18 09/19/18 03:02 04:22 WBC RBC Hgb Hct MCV MCH MCHC RDW Plt Count Add Manual Diff Total Counted Seg Neuts % (Manual) Band Neutrophils % Lymphocytes % (Manual) Reactive Lymphs % (Man) Monocytes % (Manual) Eosinophils % (Manual) Basophils % (Manual) Metamyelocytes % Myelocytes % Promyelocytes % Blast Cells % Nucleated RBC % Seg Neutrophils # Man Band Neutrophils # Lymphocytes # (Manual) Abs React Lymphs (Man) Monocytes # (Manual) Eosinophils # (Manual) Basophils # (Manual) Metamyelocytes # Myelocytes # Promyelocytes # Blast Cells # WBC Morphology Hypersegmented Neuts Hyposegmented Neuts Hypogranular Neuts Smudge Cells Toxic Granulation Toxic Vacuolation Dohle Bodies Pelger-Huet Anomaly Lula Rods Platelet Estimate Clumped Platelets Plt Clumps, EDTA Large Platelets Giant Platelets Platelet Satelliting Plt Morphology Comment RBC Morphology Dimorphic RBCs Polychromasia Hypochromasia Poikilocytosis Anisocytosis Microcytosis Macrocytosis Spherocytes Pappenheimer Bodies Sickle Cells Target Cells Tear Drop Cells Ovalocytes Helmet Cells [place] Bodies [place]ev[place] Rings [place] Cells Bite Cells Crenated Cell Elliptocytes Acanthocytes (Spur) Rouleaux Hemoglobin C Crystals Schistocytes Malaria parasites Waldo Bodies Hem Pathologist Commnt Sodium Potassium Chloride Carbon Dioxide Anion Gap BUN Creatinine Estimated GFR BUN/Creatinine Ratio Glucose Calcium Troponin T < 0.010 Salicylates Urine Opiates Screen Presumptive negative Urine Methadone Screen Presumptive negative Acetaminophen Ur Barbiturates Screen Presumptive negative Ur Phencyclidine Scrn Presumptive negative Ur Amphetamines Screen Presumptive negative U Benzodiazepines Scrn Presumptive negative Urine Cocaine Screen Presumptive positive U Marijuana (THC) Screen Presumptive negative Drugs of Abuse Note Disclamer Plasma/Serum Alcohol - EKG Data -: EKG Interpreted by Me - EKG Data See above for EKG interpretations. 09/19/18 08:16 - Radiology Data Chest x-ray no acute process Critical Care Time: Yes Critical care time in (mins) excluding proc time.: 40 Critical care attestation.: If time is entered above; I have spent that time in minutes in the direct care of this critically ill patient, excluding procedure time. ED Disposition Clinical Impression: Acute coronary syndrome, Polysubstance abuse Schizophrenia Qualifiers: Schizophrenia type: unspecified Qualified Code(s): F20.9 - Schizophrenia, unspecified Disposition: DC-09 OP ADMIT IP TO THIS HOSP Is pt being admited?: Yes Does the pt Need Aspirin: Yes Condition: Stable Referrals: VARUN WHITE MD [Primary Care Provider] - 3-5 Days Time of Disposition: 08:18
[2018-09-19] MEDS ORDERED: CALAN ONE (08:15)
[2018-09-19] MEDS ORDERED: HEPARIN/NS 5000 UNIT/500ML(CATH LAB) 1,000 ML IR ONE (08:15)
[2018-09-19] MEDS ORDERED: XYLOCAINE 2% INFILTRATI ONE (08:15)
[2018-09-19] MEDS ORDERED: HEPARIN 10,000 UNITS/10 ML ONE (08:15)
[2018-09-19] MEDS ORDERED: ADRENALIN ONE (08:16)
[2018-09-19] MEDS ORDERED: SUBLIMAZE ONE (08:16)
[2018-09-19] MEDS ORDERED: VERSED ONE (08:16)
[2018-09-19] MEDS ORDERED: ATROPINE 0.1% (CARDIAC) ONE (08:16)
[2018-09-19] MEDS ORDERED: XYLOCAINE CARDIAC IV ONE (08:16)
[2018-09-19] MEDS ORDERED: NITROGLYCERIN SYRINGE 3 ML ONE (08:16)
[2018-09-19] MEDS ORDERED: NACL 0.9% 1000 ML 1,000 ML ONE (08:17)
[2018-09-19] MEDS ORDERED: NEO SYNEPHRINE/NS Syringe(OR USE) IV ONE (08:17)
--- NOTE | 2018-09-19 08:25 | XRay Report ---
Single view chest: History: Hypertension. Findings: Borderline cardiomegaly. Trachea is midline. No consolidation, pneumothorax or pleural effusion. Impression: Borderline cardiomegaly. No acute lung changes.
--- NOTE | 2018-09-19 08:38 | History and Physical Report ---
History of Present Illness Date of examination: 09/19/18 Date of admission: 09/19/18 Chief complaint: chest pain History of present illness: A 49 year old male with h/o schizophrenia, HTN, asthma and cocaine abuse presented here for pressure in his left chest. He had [address] [facility] in [place] 2014. He is not currently seeing a card iologist. He admits that he was using "agustina and Percocet" last night. He did not express a specific desire of self-harm. He did not appear to be agitated, no hallucinating. His CE is normal, Repeat EKG in the ER showed mild J-point elevation of approximately 1 mm in V2 and V3. Cardiology was consulted from ED and recommended cardiac cath. He is getting admitted for further Mx. Past Medical Hx - Past Medical History Previous Medical History?: Yes Hx Hypertension: Yes Hx Psychiatric Treatment: Yes (schizophrenia) Hx Asthma: Yes - Surgical History Hx Coronary Stent: Yes Additional Surgical History: stents x 2 - Social History Smoking Status: Current Every Day Smoker Substance Use Type: Alcohol, Methamphetamines, Other (opioids) - Family History HTN Review of Systems Constitutional: denies: chills, fever Eyes: denies: eye pain, eye discharge, vision change ENT: denies: ear pain, throat pain Respiratory: shortness of breath. denies: cough, wheezing Cardiovascular: chest pain. denies: palpitations Endocrine: no symptoms reported Gastrointestinal: denies: abdominal pain, nausea, diarrhea Genitourinary: denies: urgency, dysuria Musculoskeletal: denies: back pain, joint swelling, arthralgia Skin: denies: rash, lesions Neurological: denies: headache, weakness, paresthesias Psychiatric: not suicidal, not agitated nor actively hallucinating. He is cooperating. denies: anxiety, depression Hematological/Lymphatic: denies: easy bleeding, easy bruising Medications and Allergies Allergies Allergy/AdvReac Type Severity Reaction Status Date / Time haloperidol [From Haldol] Allergy Swelling Verified 05/21/18 05:41 Home Medications Medication Instructions Recorded Confirmed Last Taken Type Quetiapine Fumarate [Seroquel] 100 mg PO QHS #20 tablet 09/14/18 09/19/18 09/17/18 Rx 100mg Exam - Constitutional Vitals: Temp Pulse Resp BP Pulse Ox 97.7 F 77 14 155/93 98 09/19/18 04:35 09/19/18 08:07 09/19/18 07:36 09/19/18 08:07 09/19/18 07:36 General appearance: Present: no acute distress, obese - EENT Eyes: Present: PERRL ENT: hearing intact, clear oral mucosa - Neck Neck: Present: supple, normal ROM - Respiratory Respiratory effort: normal Respiratory: bilateral: CTA - Cardiovascular Heart Sounds: Present: S1 & S2. Absent: rub, click - Extremities Extremities: pulses symmetrical, No edema Peripheral Pulses: within normal limits - Abdominal General gastrointestinal: Present: soft, non-tender, non-distended, normal bowel sounds - Integumentary Integumentary: Present: clear, warm, dry - Musculoskeletal Musculoskeletal: gait normal, strength equal bilaterally - Psychiatric Psychiatric: appropriate mood/affect, intact judgment & insight - Neurologic Neurologic: CNII-XII intact, moves all extremities Results - Labs CBC & Chem 7: 09/18/18 23:52 09/18/18 23:52 Labs: Abnormal lab results 09/18/18 09/18/18 09/18/18 Range/Units 23:52 23:52 23:52 RBC (3.65-5.03) M/mm3 Hgb (11.8-15.2) gm/dl Hct (35.5-45.6) % MCV (84-94) fl Glucose 106 H (75-100) mg/dL Salicylates < 0.3 L (2.8-20.0) mg/dL Acetaminophen < 5.0 L (10.0-30.0) ug/mL 09/18/18 Range/Units 23:52 RBC 6.18 H (3.65-5.03) M/mm3 Hgb 17.2 H (11.8-15.2) gm/dl Hct 50.5 H (35.5-45.6) % MCV 82 L (84-94) fl Glucose (75-100) mg/dL Salicylates (2.8-20.0) mg/dL Acetaminophen (10.0-30.0) ug/mL - Imaging and Cardiology Chest x-ray: report reviewed (no acute change) Assessment and Plan left sided chest pain h/o schizophrenia HTN, stable H/o asthma, stable Abnormal EKG Morbid obesity Cocaine abuse, UDS positive - Admit the patient for cardiac cath - stated on aspirin, statin, monitor BP - resume home meds when available - counseled for substance abuse - DVT Px
[2018-09-19 08:43] LABS: Creatine Kinase MB 2.2 ng/mL (0.0-4.0)
[2018-09-19 08:45] LABS: Alanine Aminotransferase 12 units/L (7-56); Albumin 3.6 g/dL (3.9-5)
[2018-09-19 08:48] LABS: Bilirubin,Direct < 0.2 mg/dL (0-0.2)
[2018-09-19 08:50] LABS: INR 0.99 (0.87-1.13); Partial Thromboplastin Time 22.9 Sec. (24.2-36.6)
[2018-09-19] MEDS ORDERED: TYLENOL PO PRN (10:00)
[2018-09-19] MEDS ORDERED: APRESOLINE IV PRN (10:00)
[2018-09-19] MEDS ORDERED: ZESTRIL PO SCH (10:00)
[2018-09-19] MEDS ORDERED: COLACE PO SCH (10:00)
[2018-09-19] MEDS ORDERED: PEPCID PO SCH (10:00)
[2018-09-19] MEDS ORDERED: ATIVAN IV PRN (10:00)
--- NOTE | 2018-09-19 11:29 | Cardiac Catherization Report ---
HEART CATHETERIZATION REFERRING PHYSICIAN: Dr. Macias in the ER. INDICATION FOR PROCEDURE: The patient is a 43-year-old -[place] gentleman who presents with suicidal ideation, history of hypertension, questionable history of previous PCI, ongoing chest pain, borderline anterior ST elevation on EKG. STEMI protocol initiated. The patient loaded with aspirin and heparin. PROCEDURE IN DETAIL: The patient was brought to catheterization lab in urgent fashion, prepped and draped in sterile fashion. Informed consent obtained. A 2 mL of 2% lidocaine used to anesthetize the right wrist. A standard 6-Faroese hydrophilic sheath used to cannulate the right radial artery via modified Seldinger technique. All exchanges performed to exchange a J-tip guidewire. An EBU catheter used to engage the left main without difficulty. Cineangiography performed in all projections. No dampening or ventricularization. 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 Angiography of the right coronary is also obtained with the same catheter in multiple views. Next, a pigtail catheter was used to cross the aortic valve under fluoroscopic guidance. Left ventriculography performed in 30 FAROOQ and 30 GERMAN projections via hand injections. Next, catheter was flushed. Manual pullback performed with continuous pressure monitoring. Next, due to anomalous coronary tree, we used a pigtail catheter for a root aortogram. Thoracic root aortogram in the GERMAN projection with power injector. Next, catheter removed from the body of wire, sheath removed. Manual pressure used to achieve hemostasis. I directly supervised the administration of moderate sedation from 08:30 to 9:04 a.m. DATA: Aortic pressure is 113/60, LV pressure is 113, LVEDP of 15 mmHg. Left ventriculography reveals normal systolic performance, estimated ejection fraction of 60-65%. No evidence of aortic stenosis or significant mitral regurgitation. Root aortography reveals normal contour, no evidence of any coronary arising from the right side of the root and normal great vessel anatomy, no dissection or penetrating ulcer or aortic insufficiency. CORONARY ANATOMY: This is a right dominant system. 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 No significant disease noted. Left main arises from the left coronary cusp. No significant disease, bifurcates in left anterior descending and left circumflex. Left circumflex, moderate sized vessel, courses AV groove. No significant disease. LAD is a moderate sized vessel, courses anterior intergroove, wraps in the apex, no significant disease in the LAD or the diagonal system. There is a segment of the mid LAD, which is a bridge/intramyocardial segment. No evidence of significant diastolic collapse. WILLIAM 3 flow. CONCLUSIONS: 1. No angiographic evidence of significant epicardial coronary disease in this right dominant system. 2. 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 3. 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 4. Root aortography without evidence of dissection, penetrating aortic ulcer, or right-sided coronary takeoff. 5. Normal left ventricular systolic performance, estimated ejection fraction of 60-65%. 6. No evidence of aortic stenosis. 7. Normal LVEDP. At this point, the patient is clinically stable and chest pain free. No evidence of any significant coronary disease. Recommend blood pressure control. Obviously needs to discontinue all polysubstance abuse. Needs to get a cardiac CT as an outpatient to determine the course of the anomalous right coronary. This is discussed with him at length. The patient will be admitted to hospitalist team. Standard radial care. My findings and plan of course have been discussed at length with the patient. All questions and concerns were addressed. JOB# [id number] ALPHONSO/GAVIOTA
[2018-09-19 12:10] VITALS: BP 133/70
--- NOTE | 2018-09-19 12:20 | Event Note ---
Date: 09/19/18 Detailed cardiology consultation dictated. 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 Alla WHIPPLE NP / DR. Selene JOHNSON
--- NOTE | 2018-09-19 13:21 | Discharge Summary ---
Providers - Providers Date of Admission: 09/19/18 08:11 Date of discharge: 09/19/18 Attending physician: MIL PEREZ 09/19/18 08:39 Consult to Physician [CONS] Routine Comment: Consulting Provider: YAW JOHNSON Physician Instructions: Reason For Exam: chest pain [facility] Condition: Stable Pertinent studies: 2d echo- EF 55-60% Cardiac cath - Normal coronaries Hospital course: A 49 year old male with h/o schizophrenia, HTN, asthma and cocaine abuse presented here for pressure in his left chest. He stated that he had 2 prior stents placed in [facility] in 2014. He is not currently seeing a press helper. He admits that he was using "agustina and Percocet" the night prior admission. His CE is normal, Repeat EKG in the ER showed mild J- point elevation of approximately 1 mm in V2 and V3. Cardiology was consulted from ED and recommended cardiac cath. His cardiac cath showed no blockage, 2d echo showed preserved EF. His UDS was positive for cocaine. Patient was then discharged home in stable condition. He was recommended outpt followup for cardiac CT to further assess the anatomy of RCA. Discharge diagnosis: left sided chest pain - likely from cocaine induced vasospasm - normal cardiac cath h/o schizophrenia, outpt follow up HTN, stable, cont lisinopril H/o asthma, stable, albuterol inhaler as needed Abnormal EKG, likely, cocaine induced Morbid obesity, counseled for diet and exercise Cocaine abuse, UDS positive, counseled for cessation Disposition: DC-01 TO HOME OR SELFCARE Time spent for discharge: 34 minutes Core Measure Documentation - Palliative Care Palliative Care/ Comfort Measures: Not Applicable - Core Measures Any of the following diagnoses?: none Exam - Constitutional Vitals: Temp Pulse Resp BP Pulse Ox 97.7 F 81 12 133/70 99 09/19/18 12:00 09/19/18 12:09 09/19/18 10:15 09/19/18 12:09 09/19/18 10:15 General appearance: Present: no acute distress, obese - EENT Eyes: Present: PERRL ENT: hearing intact, clear oral mucosa - Neck Neck: Present: supple, normal ROM - Respiratory Respiratory effort: normal Respiratory: bilateral: CTA - Cardiovascular Heart Sounds: Present: S1 & S2. Absent: rub, click - Extremities Extremities: pulses symmetrical, No edema Peripheral Pulses: within normal limits - Abdominal General gastrointestinal: Present: soft, non-tender, non-distended, normal bowel sounds - Integumentary Integumentary: Present: clear, warm, dry - Musculoskeletal Musculoskeletal: gait normal, strength equal bilaterally - Psychiatric Psychiatric: appropriate mood/affect, intact judgment & insight - Neurologic Neurologic: CNII-XII intact, moves all extremities Plan Activity: advance as tolerated Weight Bearing Status: Weight Bear as Tolerated Diet: low fat, low salt Additional Instructions: f/u at [facility] outpt psych sevices for medication refil Follow up with: VARUN WHITE MD [Primary Care Provider] - 3-5 Days
--- NOTE | 2018-09-19 22:40 | Consultation ---
CARDIOLOGY CONSULTATION REASON FOR CONSULTATION: Advice and opinion regarding chest pain and abnormal EKG. HISTORY OF PRESENT ILLNESS: The patient is a 43-year-old -[place]ym[place] gentleman who has been in the Emergency Room for some 24 hours with on and off chest pain and some question of suicidal ideation, questionable history of stents in [place] in 2014. He used Percocet last night. Currently, lucid and I was called by the Emergency Room physician due to questionable ST elevation VT. STEMI protocol was initiated. He does complain of 6/10 chest pain. No diaphoresis or shortness of breath. No syncope or presyncope. He is lucid and very cooperative. ALLERGIES: HALDOL. MEDICATIONS: Inpatient and outpatient medications reviewed. PAST MEDICAL HISTORY: Hypertension, questionable CAD, polysubstance abuse as aforementioned. SOCIAL HISTORY: Smokes, methamphetamines, alcohol and opioids. FAMILY HISTORY: No family history of premature heart disease. No recent hospitalizations. PHYSICAL EXAMINATION: VITAL SIGNS: Blood pressure is 120/80. He is afebrile. Tele reveals sinus rhythm, no dysrhythmias. O2 sat is 99% on room air. GENERAL: This is a young -Cymro male in no apparent distress, oriented x 3. HEENT: Sclerae are anicteric. PERRLA. NECK: Supple. No masses. No JVD. CHEST: Clear to auscultation bilaterally. Good air movement. CARDIOVASCULAR: Regular rate and rhythm. S1, S2. ABDOMEN: Soft, nontender, nondistended with normoactive bowel sounds in all 4 quadrants. No masses or bruits. EXTREMITIES: No cyanosis, clubbing, or edema. Good peripheral pulses. SKIN: Warm and dry. No rashes. LABORATORY DATA: EKG reveals normal sinus rhythm, ST elevation anterolaterally, J-point elevation and T-wave inversions. This is changed from an EKG earlier in his ER course. STEMI protocol was initiated. CBC is normal. Coags are normal. First troponin from earlier in the evening and midnight approximately is normal. Cocaine screen is positive. Creatinine is normal, potassium is normal. Chest x-ray is unremarkable. ASSESSMENT AND PLAN: In summary, the patient is a 43-year-old -Cym[place] gentleman with acute coronary syndrome/chest pain with borderline anterior ST elevation myocardial infarction on EKG, ongoing active chest pain, questionable history of previous PCI in 2014, polysubstance abuse. ST elevation myocardial infarction protocol initiated appropriately. The patient loaded with aspirin and heparin. Further plans contingent on these results. Other medical issues include polysubstance abuse, tobacco abuse, hypertension, history of suicidal ideation, hospitalist team to admit. Further plans contingent on catheterization results. Thank you for this consultation. JOB# [id number] SBNoemi/NTS
[2018-09-20] MEDS ORDERED: ASPIRIN PO SCH (10:00)
== END 2018-09-19 17:50 | disposition home or self-care (01) | DRG 918 ==
LOC: ED 23:05 → IMCU 09-19 08:11
PROVIDERS: ADMIT Internal Medicine; ATTEND Internal Medicine
PROC: 4A023N7 Measurement of Cardiac Sampling and Pressure, Left Heart, Percutaneous Approach (ICD-10-PCS; principal; 2018-09-19)
PROC: B2111ZZ Fluoroscopy of Multiple Coronary Arteries using Low Osmolar Contrast (ICD-10-PCS; 2018-09-19)
PROC: B2151ZZ Fluoroscopy of Left Heart using Low Osmolar Contrast (ICD-10-PCS; 2018-09-19)
PROC: B3101ZZ Fluoroscopy of Thoracic Aorta using Low Osmolar Contrast (ICD-10-PCS; 2018-09-19)
DX: T40.5X1A Poisoning by cocaine, accidental (unintentional), initial encounter (principal); F20.9 Schizophrenia, unspecified; I10 Essential (primary) hypertension; J45.909 Unspecified asthma, uncomplicated; R94.31 Abnormal electrocardiogram [ECG] [EKG]; E66.01 Morbid (severe) obesity due to excess calories; Y92.89 Other specified places as the place of occurrence of the external cause; Z82.49 Family history of ischemic heart disease and other diseases of the circulatory system; F15.10 Other stimulant abuse, uncomplicated; Z68.37 Body mass index [BMI] 37.0-37.9, adult; Z88.4 Allergy status to anesthetic agent
CPT/HCPCS: 36415; 71045; 80048; 80076; 80307; 80320; 82550; 82553; 83880; 84484; 85007; 85025; 85610; 85730; 86850; 86900; 86901; 93005; 93010; 93306; 93458; 93567; G0378; C1769; C1887; C1894; G0480; J0171; J0461; J1644; J2001; J2250; J2370; J3010; J7030; Q9967

== ENCOUNTER 2019-01-05 01:02 | Inpatient (IN) | payer OTHER ==
[2019-01-05 01:52] LABS: Basophils # (Auto) 0.1 K/mm3 (0.0-0.1); Basophils % (Auto) 0.5 % (0.0-1.8); Eosinophils % (Auto) 0.1 % (0.0-4.3); Hematocrit 46.8 % (35.5-45.6); Hemoglobin 15.4 gm/dl (11.8-15.2); Lymphocytes # (Auto) 1.3 K/mm3 (1.2-5.4); Lymphocytes % (Auto) 10.9 % (13.4-35.0); Mean Corpuscular HGB Conc 33 % (32-34); Mean Corpuscular Volume 83 fl (84-94); Monocytes # (Auto) 1.2 K/mm3 (0.0-0.8); Monocytes % (Auto) 10.1 % (0.0-7.3); Platelet Count 253 K/mm3 (140-440); Red Blood Count 5.63 M/mm3 (3.65-5.03); Red Cell Distribution Width 14.9 % (13.2-15.2)
--- NOTE | 2019-01-05 02:07 | XRay Report ---
PROCEDURE: XR CHEST 1V AP TECHNIQUE: Chest radiograph single view. HISTORY: Chest Pain COMPARISONS: None . FINDINGS: Heart: Normal. Mediastinum/Vessels: Normal. Lungs/Pleural space: Normal. Bony thorax: No acute osseous abnormality. Life support devices: None. IMPRESSION: No acute cardiopulmonary abnormality. This document is electronically signed by Cristi Mary MD., January 05 2019 02:06:19 AM ET
[2019-01-05 02:12] LABS: BUN/Creatinine Ratio 9; Blood Urea Nitrogen 13 mg/dL (9-20); Calcium 9.4 mg/dL (8.4-10.2); Hemolysis Index 6
[2019-01-05 02:33] LABS: Amorphous Crystals,Urine 1+; Bilirubin,Urine NEG (Negative); Blood,Urine LG (Negative); Color,Urine Yellow (Yellow); Mucus,Urine FEW /HPF; Urobilinogen,Urine < 2.0 mg/dL (<2.0)
[2019-01-05 02:38] LABS: Amphetamine Screen,Urine PRESUMPTIVE NEGATIVE; Benzodiazepines Screen,Urine PRESUMPTIVE NEGATIVE; Cannabinoid Screen,Urine PRESUMPTIVE NEGATIVE; Methadone Screen,Urine PRESUMPTIVE NEGATIVE; Opiate Screen,Urine PRESUMPTIVE NEGATIVE
[2019-01-05 02:55] LABS: Cocaine Screen,Urine PRESUMPTIVE POSITIVE
--- NOTE | 2019-01-05 03:40 | Emergency Department Report ---
HPI - General Chief Complaint: Psych Time Seen by Provider: 01/05/19 02:18 - HPI HPI: 43-year-old -Iraqi male presents to the emergency department with the complaints of some chest pain after doing cocaine and heroin, as well as some hallucinations and suicidal ideations. The patient has some history of cocaine abuse in the past. He also has a history of schizophrenia. The patient has a history of coronary artery disease with [address] However the patient had a cardiac catheterization done here in September of this year that did not show any new obstructive lesions or require any stenting. Patient denies any fever, back pain, nausea, vomiting or diaphoresis. The chest discomfort is midsternal. Patient denies any plan as to how he would harm himself but says that he is disappointed in himself or refer back to the drug use and has some consistent thoughts of harming himself. ED Past Medical Hx - Past Medical History Previous Medical History?: Yes Hx Hypertension: Yes Hx Congestive Heart Failure: No Hx Diabetes: No Hx Psychiatric Treatment: Yes (schizophrenia) Hx Asthma: Yes Hx COPD: No - Surgical History Past Surgical History?: Yes Hx Coronary Stent: Yes Additional Surgical History: stents x 2 - Social History Smoking Status: Current Every Day Smoker Substance Use Type: Alcohol, Cocaine, Marijuana - Medications Home Medications: Home Medications Medication Instructions Recorded Confirmed Last Taken Type Unobtainable 01/05/19 01/05/19 Unknown History ED Review of Systems ROS: Stated complaint: CP/HALLUCINATIONS Other details as noted in HPI Comment: All other systems reviewed and negative Constitutional: denies: chills, fever Eyes: denies: eye pain, vision change ENT: denies: ear pain, throat pain Respiratory: shortness of breath. denies: cough Cardiovascular: chest pain Gastrointestinal: denies: abdominal pain, vomiting Genitourinary: denies: dysuria, discharge Musculoskeletal: denies: back pain, arthralgia Skin: denies: rash, lesions Neurological: denies: headache, weakness Psychiatric: depression, auditory hallucinations, suicidal thoughts Physical Exam - Physical Exam Vital Signs: Vital Signs 01/05/19 01/05/19 01:08 01:43 Temperature 98.2 F 98.1 F Pulse Rate 110 H 90 Respiratory 18 Rate Blood Pressure 154/93 Blood Pressure 171/94 [Right] O2 Sat by Pulse 98 Oximetry Physical Exam: GENERAL: The patient is well-developed well-nourished. HENT: Normocephalic. Atraumatic. Patient has moist mucous membranes. EYES: Extraocular motions are intact. NECK: Supple. Trachea is midline. CHEST/LUNGS: Clear to auscultation. There is no respiratory distress noted. HEART/CARDIOVASCULAR: Regular. There is no tachycardia. There is no murmur. ABDOMEN: Abdomen is soft, nontender. Patient has normal bowel sounds. There is no abdominal distention. SKIN: Skin is warm and dry. NEURO: The patient is awake, alert, and oriented. The patient is cooperative. The patient has no focal neurologic deficits. The patient has normal speech. MUSCULOSKELETAL: There is no tenderness or deformity. There is no limitation range of motion. There is no evidence of acute injury. ED Course Vital Signs 01/05/19 01/05/19 01:08 01:43 Temperature 98.2 F 98.1 F Pulse Rate 110 H 90 Respiratory 18 Rate Blood Pressure 154/93 Blood Pressure 171/94 [Right] O2 Sat by Pulse 98 Oximetry ED Medical Decision Making - Lab Data Result diagrams: 01/05/19 01:24 01/05/19 01:24 - EKG Data -: EKG Interpreted by Nd EKG shows normal: sinus rhythm, axis, intervals, QRS complexes, ST-T waves (nonspecific mild ST elevation to the anterior leads) Rate: normal - EKG Data When compared to previous EKG there are: no significant change Interpretation: unchanged when compared t (09/19/18) - Radiology Data Radiology results: image reviewed interpreted by me: Chest x-ray does not show any acute process. There are no pleural effusions, obvious pneumonia and there is no pneumothorax. - Medical Decision Making This patient presents to the emergency department with complaint of chest pain after doing cocaine and heroin, as well as some suicidal ideations. The patient has been made a 1013 secondary to his suicidal ideations. Patient has a history of coronary artery disease with [address] He did have a negative stress test done about 3 months ago. However he continues to have this chest pain status post cocaine use and I do not feel that I can effectively medically clear him to be transferred to a psychiatric facility given his continued chest discomfort. For this reason, the patient will be admitted to the hospital for further evaluation and was accepted for admission by the hospitalist service. - Differential Diagnosis MS, PE, costochondritis, illicit drug use Critical Care Time: No Critical care attestation.: If time is entered above; I have spent that time in minutes in the direct care of this critically ill patient, excluding procedure time. ED Disposition Clinical Impression: Polysubstance abuse, Acute chest pain, Suicidal ideations Schizophrenia Qualifiers: Schizophrenia type: unspecified Qualified Code(s): F20.9 - Schizophrenia, unspecified Hypertension Qualifiers: Hypertension type: essential hypertension Qualified Code(s): I10 - Essential (primary) hypertension Disposition: OP ADMIT IP TO THIS HOSP Is pt being admited?: Yes Condition: Fair Instructions: Hypertension (ED), Chest Pain (ED) Referrals: VARUN WHITE MD [Primary Care Provider] - 3-5 Days Time of Disposition: 05:18
[2019-01-05] MEDS ORDERED: SODIUM CHLORIDE FLUSH SYRINGE 10 ML IV PRN (04:16)
[2019-01-05] MEDS ORDERED: MORPHINE IV PRN (04:16)
[2019-01-05] MEDS ORDERED: TYLENOL PO PRN (04:16)
[2019-01-05] MEDS ORDERED: PERCOCET 5/325 PO PRN (04:16)
[2019-01-05] MEDS ORDERED: ZOFRAN IV PRN (04:16)
[2019-01-05] MEDS ORDERED: APRESOLINE IV PRN (04:21)
[2019-01-05] MEDS: NORVASC PO SCH ×2 (04:30→09:37)
--- NOTE | 2019-01-05 04:44 | History and Physical Report ---
History of Present Illness Date of examination: 01/05/19 Chief complaint: Chest pain History of present illness: Patient is a 43 year old -[place] male with history of CAD who presented to the ED on account of few hours history of left-sided chest pain. He described it as sharp in character, rated 8/10, non-radiating and constant in duration. No known aggravating or relieving factors. He has associated shortness of breath, palpitation, diaphoresis, generalized body aches, dry cough and headaches. He also stated that he would like to kill himself, however he has no plan. Mitchell bee reported that he has been clean from cocaine and heroine for 6 months, but he relapsed 2 days ago. He also reported running out of this medication about a month ago. He had a recent left cardiac catheterization in 10/02 which showed no new significant stenosis Past History Past Medical History: CAD, hypertension, other (gout, schizophrenia/bipolar dis order, suicidal attempt) Past Surgical History: Other (cardiac stent placement 2, left arm surgery) Social history: smoking (patient has 30 years history of cigarette smoking. He currently smokes about 1 pack per day. He has been snorting cocaine and heroine for 10 years), alcohol abuse (he is an every day drinker for more than 30 years) Family history: CAD (father) Medications and Allergies Allergies Allergy/AdvReac Type Severity Reaction Status Date / Time haloperidol [From Haldol] Allergy Swelling Verified 05/21/18 05:41 Home Medications Medication Instructions Recorded Confirmed Last Taken Type Unobtainable 01/05/19 01/05/19 Unknown History Active Meds: Active Medications Acetaminophen (Tylenol) 650 mg PO Q4H PRN PRN Reason: Pain MILD(1-3)/Fever >100.5/PHILLIP Amlodipine Besylate (Norvasc) 10 mg PO QDAY LUIS CARLOS Enoxaparin Sodium (Lovenox) 40 mg SUB-Q QDAY LUIS CARLOS Famotidine (Pepcid) 20 mg PO BID LUIS CARLOS Hydralazine HCl (Apresoline) 10 mg IV Q4HR PRN PRN Reason: Blood Pressure Sodium Chloride (Nacl 0.9% 1000 Ml) 1,000 mls @ 100 mls/hr IV DIRECT LUIS CARLOS Morphine Sulfate (Morphine) 2 mg IV Q4H PRN PRN Reason: Pain , Severe (7-10) Ondansetron HCl (Zofran) 4 mg IV Q8H PRN PRN Reason: Nausea And Vomiting Oxycodone/Acetaminophen (Percocet 5/325) 1 tab PO Q6H PRN PRN Reason: Pain, Moderate (4-6) Sodium Chloride (Sodium Chloride Flush Syringe 10 Ml) 10 ml IV BID LUIS CARLOS Sodium Chloride (Sodium Chloride Flush Syringe 10 Ml) 10 ml IV PRN PRN PRN Reason: LINE FLUSH Review of Systems All systems: negative (Except as documented in the HPI, 14 point system reviewed were negative) Exam - Constitutional Vitals: Temp Pulse Resp BP Pulse Ox 98.1 F 90 18 171/94 98 01/05/19 01:43 01/05/19 01:43 01/05/19 01:43 01/05/19 01:43 01/05/19 01:43 General appearance: Present: no acute distress, obese - EENT Eyes: Present: PERRL, EOM intact ENT: hearing intact, clear oral mucosa - Neck Neck: Present: supple, normal ROM - Respiratory Respiratory effort: normal Respiratory: bilateral: CTA - Cardiovascular Rhythm: regular Heart Sounds: Present: S1 & S2. Absent: rub, click - Extremities Extremities: pulses symmetrical Extremity abnormal: edema (trace edema in bilateral lower extremities) Peripheral Pulses: within normal limits - Abdominal General gastrointestinal: Present: soft, non-tender, non-distended, normal bowel sounds Male genitourinary: Present: deferred - Integumentary Integumentary: Present: clear, warm, dry - Musculoskeletal Musculoskeletal: gait normal, strength equal bilaterally - Psychiatric Psychiatric: appropriate mood/affect, intact judgment & insight - Neurologic Neurologic: CNII-XII intact, moves all extremities Results - Labs CBC & Chem 7: 01/05/19 01:24 01/05/19 01:24 Labs: Laboratory Last Values WBC 11.7 K/mm3 (4.5-11.0) H 01/05/19 01:24 RBC 5.63 M/mm3 (3.65-5.03) H 01/05/19 01:24 Hgb 15.4 gm/dl (11.8-15.2) H 01/05/19 01:24 Hct 46.8 % (35.5-45.6) H 01/05/19 01:24 MCV 83 fl (84-94) L 01/05/19 01:24 MCH 27 pg (28-32) L 01/05/19 01:24 MCHC 33 % (32-34) 01/05/19 01:24 RDW 14.9 % (13.2-15.2) 01/05/19 01:24 Plt Count 253 K/mm3 (140-440) 01/05/19 01:24 Lymph % (Auto) 10.9 % (13.4-35.0) L 01/05/19 01:24 Pike % (Auto) 10.1 % (0.0-7.3) H 01/05/19 01:24 Eos % (Auto) 0.1 % (0.0-4.3) 01/05/19 01:24 Baso % (Auto) 0.5 % (0.0-1.8) 01/05/19 01:24 Lymph # 1.3 K/mm3 (1.2-5.4) 01/05/19 01:24 Pike # 1.2 K/mm3 (0.0-0.8) H 01/05/19 01:24 Eos # 0.0 K/mm3 (0.0-0.4) 01/05/19 01:24 Baso # 0.1 K/mm3 (0.0-0.1) 01/05/19 01:24 Seg Neutrophils % 78.4 % (40.0-70.0) H 01/05/19 01:24 Seg Neutrophils # 9.2 K/mm3 (1.8-7.7) H 01/05/19 01:24 156.31 ng/mlDDU (0-234) 01/05/19 02:45 Sodium 140 mmol/L (137-145) 01/05/19 01:24 Potassium 4.1 mmol/L (3.6-5.0) 01/05/19 01:24 Chloride 98.0 mmol/L (98-107) 01/05/19 01:24 Carbon Dioxide 27 mmol/L (22-30) 01/05/19 01:24 19 mmol/L 01/05/19 01:24 BUN 13 mg/dL (9-20) 01/05/19 01:24 1.4 mg/dL (0.8-1.5) 01/05/19 01:24 Estimated GFR > 60 ml/min 01/05/19 01:24 9 % 01/05/19 01:24 Glucose 98 mg/dL (75-100) 01/05/19 01:24 Calcium 9.4 mg/dL (8.4-10.2) 01/05/19 01:24 < 0.010 ng/mL (0.00-0.029) 01/05/19 01:24 Yellow (Yellow) 01/05/19 02:15 Slightly-cloudy (Clear) 01/05/19 02:15 6.0 (5.0-7.0) 01/05/19 02:15 Ur Specific [place] 1.013 (1.003-1.030) 01/05/19 02:15 30 mg/dl mg/dL (Negative) 01/05/19 02:15 Neg mg/dL (Negative) 01/05/19 02:15 Neg mg/dL (Negative) 01/05/19 02:15 Lg (Negative) 01/05/19 02:15 Neg (Negative) 01/05/19 02:15 Neg (Negative) 01/05/19 02:15 < 2.0 mg/dL (<2.0) 01/05/19 02:15 Ur Leukocyte Esterase Neg (Negative) 01/05/19 02:15 2.0 /HPF (0.0-6.0) 01/05/19 02:15 4.0 /HPF (0.0-6.0) 01/05/19 02:15 U Epithel Cells (Auto) < 1.0 /HPF (0-13.0) 01/05/19 02:15 Amorphous Crystals 1+ 01/05/19 02:15 Few /HPF 01/05/19 02:15 Salicylates < 0.3 mg/dL (2.8-20.0) L 01/05/19 01:24 Presumptive negative 01/05/19 02:15 Presumptive negative 01/05/19 02:15 Acetaminophen < 5.0 ug/mL (10.0-30.0) L 01/05/19 01:24 Ur Barbiturates Screen Presumptive negative 01/05/19 02:15 Ur Phencyclidine Scrn Presumptive negative 01/05/19 02:15 Ur Amphetamines Screen Presumptive negative 01/05/19 02:15 U Benzodiazepines Scrn Presumptive negative 01/05/19 02:15 Presumptive positive 01/05/19 02:15 U Marijuana (THC) Screen Presumptive negative 01/05/19 02:15 Disclamer 01/05/19 02:15 Plasma/Serum Alcohol < 0.01 % (0-0.07) 01/05/19 01:24 Assessment and Plan Assessment and plan: Chest pain, rule out ACS -On chest pain pathway -His last left cardiac catheterization was in 10/02 which was negative for significant stenosis Suicidal ideation -On 1012 Hypertension, uncontrolled -On antihypertensives, adjust as needed Leukocytosis with elevated H&H -Probably due to hemoconcentration from Volume depletion -No evidence of acute infection -On IV fluid, will monitor levels Schizophrenia/bipolar disorder -For mental health team evaluation History of CAD -Resume home medications when available Gout -No acute flare History of polysubstance abuse (tobacco, cocaine and heroine) -Patient once again counseled on cessation DVT prophylaxis with Lovenox Disposition: Discharge planning per Mental health team when medically cleared
[2019-01-05] MEDS ORDERED: ASPIRIN ONE (09:18)
[2019-01-05] MEDS ORDERED: LOVENOX SUB-Q ONE (09:18)
[2019-01-05] MEDS ORDERED: PEPCID ONE (09:19)
[2019-01-05] MEDS ORDERED: NORVASC ONE (09:19)
[2019-01-05] MEDS: ASPIRIN PO SCH (09:36)
[2019-01-05] MEDS: LOVENOX SUB-Q SCH (09:37)
[2019-01-05] MEDS: SODIUM CHLORIDE FLUSH SYRINGE 10 ML IV SCH ×2 (09:37→21:49)
[2019-01-05] MEDS: PEPCID PO SCH ×2 (09:37→21:48)
--- NOTE | 2019-01-05 16:23 | Consultation ---
History of Present Illness - Reason for Consult Consult date: 01/05/19 Reason for consult: psychiatric evaluation - Chief Complaint Chief complaint: Chest pain - History of Present Psychiatric Illness 43-year-old AA male who presented to the ER for chest pain, suicidal ideation, and auditory/visual halluciantions. He relapsed using cocaine 2 days ago. He stated that his issues is using cocaine. He has several ER visits in the past for similar behavior. The patient home medication is wellbutrin but he has not been compliant and last saw the psychiatrist 2 months ago. He currently denies SI/HI. He reports hearing screaming and seeing shadows. He denies erratic sleep and a poor appetite. He denies alcohol consumption (etoh). Past psychiatric history - Past Medical History Past Medical History: No medical history Past Surgical History: No surgical history - past Psychiatric treatment and history psychiatric treatment history: Hx of substance abuse. Denies a fam psy hx. He reports multiple trials of medications, including seroquel and wellbutrin Medications and Allergies Allergies Allergy/AdvReac Type Severity Reaction Status Date / Time haloperidol [From Haldol] Allergy Swelling Verified 05/21/18 05:41 Home Medications Medication Instructions Recorded Confirmed Last Taken Type Unobtainable 01/05/19 01/05/19 Unknown History Active Meds: Active Medications Acetaminophen (Tylenol) 650 mg PO Q4H PRN PRN Reason: Pain MILD(1-3)/Fever >100.5/PHILLIP Amlodipine Besylate (Norvasc) 10 mg PO QDAY [facility] Last Admin: 01/05/19 09:37 Dose: Not Given Documented by: Aspirin (Aspirin) 325 mg PO QDAY [facility] Last Admin: 01/05/19 09:36 Dose: 325 mg Documented by: Enoxaparin Sodium (Lovenox) 40 mg SUB-Q QDAY [facility] Last Admin: 01/05/19 09:37 Dose: 40 mg Documented by: Famotidine (Pepcid) 20 mg PO BID [facility] Last Admin: 01/05/19 09:37 Dose: 20 mg Documented by: Hydralazine HCl (Apresoline) 10 mg IV Q4HR PRN PRN Reason: Blood Pressure Sodium Chloride (Nacl 0.9% 1000 Ml) 1,000 mls @ 100 mls/hr IV DIRECT [facility] Morphine Sulfate (Morphine) 2 mg IV Q4H PRN PRN Reason: Pain , Severe (7-10) Ondansetron HCl (Zofran) 4 mg IV Q8H PRN PRN Reason: Nausea And Vomiting Oxycodone/Acetaminophen (Percocet 5/325) 1 tab PO Q6H PRN PRN Reason: Pain, Moderate (4-6) Sodium Chloride (Sodium Chloride Flush Syringe 10 Ml) 10 ml IV BID [facility] Last Admin: 01/05/19 09:37 Dose: 10 ml Documented by: Sodium Chloride (Sodium Chloride Flush Syringe 10 Ml) 10 ml IV PRN PRN PRN Reason: LINE FLUSH Past psychiatric history - past Psychiatric treatment and history Psych: Addictions, Bipolar, Psychosis psychiatric treatment history: [facility] for mental health reasons 2 x in Aug 2018 and x 1 2017 - Social History Social history: other (lease is running out and has to move. states he has means to move) Mental Status Exam - Vital signs Last Vital Signs Temp 98.1 F 01/05/19 01:43 Pulse 75 01/05/19 12:21 Resp 14 01/05/19 12:21 BP 139/73 01/05/19 12:21 Pulse Ox 100 01/05/19 12:21 - Exam Orientation: time, place, person Affect: depressed Mood: congruent with affect Thought content: paranoia Thought Process: Circumstantial Perceptions: visual, auditory, hallucinations Speech: normal rate and pattern Concentration: focused Motor activity: normal Level of consciousness: alert Memory: Intact Sleep Symptoms: Difficulty Falling Asleep Interaction: cooperative Results Result Diagrams: 01/06/19 08:50 01/05/19 01:24 Abnormal lab results 01/05/19 01/05/19 01/05/19 Range/Units 01:24 01:24 01:24 WBC 11.7 H (4.5-11.0) K/mm3 RBC 5.63 H (3.65-5.03) M/mm3 Hgb 15.4 H (11.8-15.2) gm/dl Hct 46.8 H (35.5-45.6) % MCV 83 L (84-94) fl MCH 27 L (28-32) pg Lymph % (Auto) 10.9 L (13.4-35.0) % [place] % (Auto) 10.1 H (0.0-7.3) % [place] # 1.2 H (0.0-0.8) K/mm3 Seg Neutrophils % 78.4 H (40.0-70.0) % Seg Neutrophils # 9.2 H (1.8-7.7) K/mm3 Salicylates < 0.3 L (2.8-20.0) mg/dL Acetaminophen < 5.0 L (10.0-30.0) ug/mL All other labs normal. Assessment and Plan Assessment and plan: Impression: Substance Induced Mood/Psychotic DO. Substance Use DO (cocaine). Today the patient is calm and cooperative during the assessment. DDx: R/O Bipolar Do with psychosis Recommendation/Plan:Continue 1013 and start abilify 5mg HS for mood/psychosis. Discussed the possible metabolic side effects of abilify with the patient. Dispo: inpatient psychiatric services staffed with Dr. Barrow
--- NOTE | 2019-01-05 17:26 | Event Note ---
Date: 01/05/19 43-year-old male patient was admitted this morning with the chest pain and suicidal ideation, placed on 1013 status, psych consulted Patient seen and evaluated medical records reviewed, Agree with the current management Follow psychiatric recommendations. Possible discharge to psych facility for further evaluation and management Medically stable for discharge Disposition per psych, transfer to inpatient psych
[2019-01-05] MEDS: ABILIFY PO SCH (21:48)
--- NOTE | 2019-01-06 08:16 | Progress Note ---
Assessment and Plan Assessment and plan: --Chest pain: Noncardiac chest pain, resolved Serial cardiac enzymes negative, EKG no acute ST-T changes His last left cardiac catheterization was in 10/02 which was negative for significant stenosis Echo;10/02normal EF 55% , Cardiology consult --History of CAD Continue current cardiac medications --Suicidal ideation On 1012, follow-up psych evaluation --Hypertension: well controlled Continue antihypertensives, and when necessary medications --Leukocytosis with elevated H&H Probably due to hemoconcentration from Volume depletion No evidence of acute infection On IV fluid, will monitor levels --Schizophrenia/bipolar disorder Management per psych --Gout; stable --History of polysubstance abuse (tobacco, cocaine and heroine) Patient advised to quit recreational drug use , smoking cessation --DVT prophylaxis with Lovenox Disposition: Patient is medically stable Discharge planning per psych History Interval history: Patient seen and examined medical records reviewed Patient feels better complaints Denies chest pain or shortness of breath Vital signs noted hand meat salter at the bedside Hospitalist Physical - Constitutional Vitals: Temp Pulse Resp BP Pulse Ox 97.8 F 62 16 107/55 95 01/06/19 04:49 01/06/19 04:00 01/06/19 04:49 01/06/19 04:49 01/06/19 04:00 General appearance: Present: no acute distress, well-nourished, obese - EENT Eyes: Present: PERRL, EOM intact - Neck Neck: Present: supple, normal ROM - Respiratory Respiratory effort: normal Respiratory: bilateral: diminished, negative: rales, rhonchi, wheezing - Cardiovascular Rhythm: regular Heart Sounds: Present: S1 & S2 - Extremities Extremities: no ischemia, No edema - Abdominal General gastrointestinal: soft, non-tender, non-distended, normal bowel sounds - Integumentary Integumentary: Present: clear, warm - Psychiatric Psychiatric: appropriate mood/affect, cooperative - Neurologic Neurologic: CNII-XII intact, moves all extremities Results - Labs CBC & Chem 7: 01/06/19 08:50 01/05/19 01:24 Labs: Laboratory Last Values WBC 11.7 K/mm3 (4.5-11.0) H 01/05/19 01:24 RBC 5.63 M/mm3 (3.65-5.03) H 01/05/19 01:24 Hgb 15.4 gm/dl (11.8-15.2) H 01/05/19 01:24 Hct 46.8 % (35.5-45.6) H 01/05/19 01:24 MCV 83 fl (84-94) L 01/05/19 01:24 MCH 27 pg (28-32) L 01/05/19 01:24 MCHC 33 % (32-34) 01/05/19 01:24 RDW 14.9 % (13.2-15.2) 01/05/19 01:24 Plt Count 253 K/mm3 (140-440) 01/05/19 01:24 Lymph % (Auto) 10.9 % (13.4-35.0) L 01/05/19 01:24 [place] % (Auto) 10.1 % (0.0-7.3) H 01/05/19 01:24 Eos % (Auto) 0.1 % (0.0-4.3) 01/05/19 01:24 Baso % (Auto) 0.5 % (0.0-1.8) 01/05/19 01:24 Lymph # 1.3 K/mm3 (1.2-5.4) 01/05/19 01:24 [place] # 1.2 K/mm3 (0.0-0.8) H 01/05/19 01:24 Eos # 0.0 K/mm3 (0.0-0.4) 01/05/19 01:24 Baso # 0.1 K/mm3 (0.0-0.1) 01/05/19 01:24 Seg Neutrophils % 78.4 % (40.0-70.0) H 01/05/19 01:24 Seg Neutrophils # 9.2 K/mm3 (1.8-7.7) H 01/05/19 01:24 156.31 ng/mlDDU (0-234) 01/05/19 02:45 Sodium 140 mmol/L (137-145) 01/05/19 01:24 Potassium 4.1 mmol/L (3.6-5.0) 01/05/19 01:24 Chloride 98.0 mmol/L (98-107) 01/05/19 01:24 Carbon Dioxide 27 mmol/L (22-30) 01/05/19 01:24 19 mmol/L 01/05/19 01:24 BUN 13 mg/dL (9-20) 01/05/19 01:24 1.4 mg/dL (0.8-1.5) 01/05/19 01:24 Estimated GFR > 60 ml/min 01/05/19 01:24 9 % 01/05/19 01:24 Glucose 98 mg/dL (75-100) 01/05/19 01:24 Calcium 9.4 mg/dL (8.4-10.2) 01/05/19 01:24 < 0.010 ng/mL (0.00-0.029) 01/05/19 13:07 Yellow (Yellow) 01/05/19 02:15 Slightly-cloudy (Clear) 01/05/19 02:15 6.0 (5.0-7.0) 01/05/19 02:15 Ur Specific [place] 1.013 (1.003-1.030) 01/05/19 02:15 30 mg/dl mg/dL (Negative) 01/05/19 02:15 Neg mg/dL (Negative) 01/05/19 02:15 Neg mg/dL (Negative) 01/05/19 02:15 Lg (Negative) 01/05/19 02:15 Neg (Negative) 01/05/19 02:15 Neg (Negative) 01/05/19 02:15 < 2.0 mg/dL (<2.0) 01/05/19 02:15 Ur Leukocyte Esterase Neg (Negative) 01/05/19 02:15 2.0 /HPF (0.0-6.0) 01/05/19 02:15 4.0 /HPF (0.0-6.0) 01/05/19 02:15 U Epithel Cells (Auto) < 1.0 /HPF (0-13.0) 01/05/19 02:15 Amorphous Crystals 1+ 01/05/19 02:15 Few /HPF 01/05/19 02:15 Salicylates < 0.3 mg/dL (2.8-20.0) L 01/05/19 01:24 Presumptive negative 01/05/19 02:15 Presumptive negative 01/05/19 02:15 Acetaminophen < 5.0 ug/mL (10.0-30.0) L 01/05/19 01:24 Ur Barbiturates Screen Presumptive negative 01/05/19 02:15 Ur Phencyclidine Scrn Presumptive negative 01/05/19 02:15 Ur Amphetamines Screen Presumptive negative 01/05/19 02:15 U Benzodiazepines Scrn Presumptive negative 01/05/19 02:15 Presumptive positive 01/05/19 02:15 U Marijuana (THC) Screen Presumptive negative 01/05/19 02:15 Disclamer 01/05/19 02:15 Plasma/Serum Alcohol < 0.01 % (0-0.07) 01/05/19 01:24 Active Medications - Current Medications Current Medications: Generic Name Dose Route Start Last Admin Trade Name Freq PRN Reason Stop Dose Admin Acetaminophen 650 mg 01/05/19 04:16 Tylenol PO Q4H PRN Pain MILD(1-3)/Fever >100.5/PHILLIP Amlodipine Besylate 10 mg 01/05/19 04:21 01/05/19 09:37 Norvasc PO Not Given QDAY [facility] Aripiprazole 5 mg 01/05/19 22:00 01/05/19 21:48 Abilify PO 5 mg HS [facility] Administration Aspirin 325 mg 01/05/19 10:00 01/05/19 09:36 Aspirin PO 325 mg QDAY [facility] Administration Enoxaparin Sodium 40 mg 01/05/19 10:00 01/05/19 09:37 Lovenox SUB-Q 40 mg QDAY [facility] Administration Famotidine 20 mg 01/05/19 10:00 01/05/19 21:48 Pepcid PO 20 mg BID [facility] Administration Hydralazine HCl 10 mg 01/05/19 04:21 Apresoline IV Q4HR PRN Blood Pressure Sodium Chloride 1,000 mls @ 100 mls/hr 01/05/19 05:00 Nacl 0.9% 1000 Ml IV DIRECT [facility] Morphine Sulfate 2 mg 01/05/19 04:16 Morphine IV Q4H PRN Pain , Severe (7-10) Ondansetron HCl 4 mg 01/05/19 04:16 Zofran IV Q8H PRN Nausea And Vomiting Oxycodone/Acetaminophen 1 tab 01/05/19 04:16 01/05/19 21:48 Percocet 5/325 PO 1 tab Q6H PRN Administration Pain, Moderate (4-6) Sodium Chloride 10 ml 01/05/19 10:00 01/05/19 21:49 Sodium Chloride Flush Syringe 10 Ml IV 10 ml BID [facility] Administration Sodium Chloride 10 ml 01/05/19 04:16 Sodium Chloride Flush Syringe 10 Ml IV PRN PRN LINE FLUSH
[2019-01-06 09:34] LABS: Basophils # (Auto) 0.1 K/mm3 (0.0-0.1); Basophils % (Auto) 1.1 % (0.0-1.8); Eosinophils # (Auto) 0.1 K/mm3 (0.0-0.4); Hematocrit 44.2 % (35.5-45.6); Hemoglobin 14.6 gm/dl (11.8-15.2); Lymphocytes # (Auto) 1.4 K/mm3 (1.2-5.4); Lymphocytes % (Auto) 29.7 % (13.4-35.0); Mean Corpuscular HGB Conc 33 % (32-34); Mean Corpuscular Volume 84 fl (84-94); Monocytes # (Auto) 0.4 K/mm3 (0.0-0.8); Monocytes % (Auto) 8.8 % (0.0-7.3); Platelet Count 213 K/mm3 (140-440); Red Cell Distribution Width 14.6 % (13.2-15.2)
[2019-01-06] MEDS: SODIUM CHLORIDE FLUSH SYRINGE 10 ML IV SCH ×2 (10:00→21:37)
[2019-01-06] MEDS: PEPCID PO SCH ×2 (11:10→21:37)
[2019-01-06] MEDS: NORVASC PO SCH (11:10)
[2019-01-06] MEDS: LOVENOX SUB-Q SCH (11:11)
[2019-01-06] MEDS: ASPIRIN PO SCH (11:11)
--- NOTE | 2019-01-06 18:08 | Consultation ---
History of Present Illness Consult date: 01/06/19 History of present illness: Full cardiac note dictated. Cardiac status stable. Patient committed to 1013. May be transferred. . Past History Past Medical History: CAD, hypertension, other (gout, schizophrenia/bipolar diso rder, suicidal attempt) Past Surgical History: Other (cardiac stent placement 2, left arm surgery) Social history: other (lease is running out and has to move. states he has means to move) Family history: CAD (father) Medications and Allergies Allergies Allergy/AdvReac Type Severity Reaction Status Date / Time haloperidol [From Haldol] Allergy Swelling Verified 05/21/18 05:41 Home Medications Medication Instructions Recorded Confirmed Last Taken Type Unobtainable 01/05/19 01/05/19 Unknown History Active Meds: Active Medications Acetaminophen (Tylenol) 650 mg PO Q4H PRN PRN Reason: Pain MILD(1-3)/Fever >100.5/PHILLIP Amlodipine Besylate (Norvasc) 10 mg PO QDAY [facility] Last Admin: 01/06/19 11:10 Dose: 10 mg Documented by: Aripiprazole (Abilify) 5 mg PO HS [facility] Last Admin: 01/05/19 21:48 Dose: 5 mg Documented by: Aspirin (Aspirin) 325 mg PO QDAY [facility] Last Admin: 01/06/19 11:11 Dose: 325 mg Documented by: Enoxaparin Sodium (Lovenox) 40 mg SUB-Q QDAY [facility] Last Admin: 01/06/19 11:11 Dose: 40 mg Documented by: Famotidine (Pepcid) 20 mg PO BID [facility] Last Admin: 01/06/19 11:10 Dose: 20 mg Documented by: Hydralazine HCl (Apresoline) 10 mg IV Q4HR PRN PRN Reason: Blood Pressure Sodium Chloride (Nacl 0.9% 1000 Ml) 1,000 mls @ 100 mls/hr IV DIRECT [facility] Morphine Sulfate (Morphine) 2 mg IV Q4H PRN PRN Reason: Pain , Severe (7-10) Ondansetron HCl (Zofran) 4 mg IV Q8H PRN PRN Reason: Nausea And Vomiting Oxycodone/Acetaminophen (Percocet 5/325) 1 tab PO Q6H PRN PRN Reason: Pain, Moderate (4-6) Last Admin: 01/05/19 21:48 Dose: 1 tab Documented by: Sodium Chloride (Sodium Chloride Flush Syringe 10 Ml) 10 ml IV BID [facility] Last Admin: 01/06/19 10:00 Dose: 10 ml Documented by: Sodium Chloride (Sodium Chloride Flush Syringe 10 Ml) 10 ml IV PRN PRN PRN Reason: LINE FLUSH Physical Examination Vital Signs Temp Pulse BP 98.2 F 110 H 154/93 01/05/19 01:08 01/05/19 01:08 01/05/19 01:08 Results 01/06/19 08:50 01/05/19 01:24 CBC 01/06/19 Range/Units 08:50 WBC 4.6 (4.5-11.0) K/mm3 RBC 5.30 H (3.65-5.03) M/mm3 Hgb 14.6 (11.8-15.2) gm/dl Hct 44.2 (35.5-45.6) % Plt Count 213 (140-440) K/mm3 Lymph # 1.4 (1.2-5.4) K/mm3 [place] # 0.4 (0.0-0.8) K/mm3 Eos # 0.1 (0.0-0.4) K/mm3 Baso # 0.1 (0.0-0.1) K/mm3
--- NOTE | 2019-01-06 19:08 | Progress Note ---
Subjective - Reason for Consult Consult date: 01/06/19 Reason for consult: follow up - Chief Complaint Chief complaint: "doing better." 43-year-old AA male who presented to the ER for chest pain, suicidal ideation, and auditory/visual halluciantions. He relapsed using cocaine 2 days prior to arrival. He stated that his issues is using cocaine. He says if he stays away from the drugs he would be fine. He currently denies SI/HI. He reports hearing screaming and seeing shadows. He denies erratic sleep and a poor appetite. He denies alcohol consumption (etoh). He denies side effects to abilify. Mental Status Exam - Vital signs Last Vital Signs Temp 98.2 F 01/06/19 18:05 Pulse 74 01/06/19 18:28 Resp 20 01/06/19 18:05 BP 130/76 01/06/19 18:05 Pulse Ox 98 01/06/19 18:05 - Exam Narrative exam: - Exam Orientation: time, place, person Affect: depressed Mood: congruent with affect Thought content: paranoia Thought Process: Circumstantial Perceptions: visual, auditory, hallucinations Speech: normal rate and pattern Concentration: focused Motor activity: normal Level of consciousness: alert Memory: Intact Sleep Symptoms: Difficulty Falling Asleep Interaction: cooperative Assessment and Plan Impression: Substance Induced Mood/Psychotic DO. Substance Use DO (cocaine). Today the patient is calm and cooperative during the assessment. DDx: R/O Bipolar Do with psychosis Recommendation/Plan:Continue 1013 and continue abilify 5mg HS for mood/psychosis. Discussed the possible metabolic side effects of abilify with the patient. will monitor q 24 hours to see if he meets criteria for 1013 Dispo: inpatient psychiatric services staffed with Dr. Barrow
[2019-01-06 20:58] VITALS: BP 152/88
[2019-01-06] MEDS: ABILIFY PO SCH (21:37)
[2019-01-06] MEDS: NACL 0.9% 1000 ML 1,000 ML IV SCH (23:46)
--- NOTE | 2019-01-07 03:35 | Consultation ---
CONSULT REQUESTED BY: Hospitalist, Dr. Mcallister. REASON FOR CONSULTATION: Chest pain evaluation. HISTORY OF PRESENT ILLNESS: This 43-year-old -[place] male with a history of cocaine abuse for many years, has been abusing cocaine at home. He developed left-sided chest pain and therefore he came to the hospital. He complains of pain as sharp in nature, nonradiating, constant. No palpitations, shortness of breath or diaphoresis. He has got generalized aches and pains, cough. The patient mentioned that he would like to commit suicide and therefore he is going to be transferred to Psych Unit once he has clearance from Cardiology. PAST MEDICAL HISTORY: Positive for hypertension, schizophrenia, bipolar disorder. The patient had a cardiac catheterization in 09/2018 and this revealed patent stents. SOCIAL HISTORY: The patient smokes a pack of cigarettes per day. He has been smoking for many years. He has been abusing cocaine and heroin for the last 10 years. Alcohol abuse for last 30 years. PHYSICAL EXAMINATION: VITAL SIGNS: Height 5 feet 6 inches, body weight 111 kg, body surface is 2.33 meter squared. BMI is 39.7 kg per meter squared. GENERAL: The patient is in no acute distress. NECK: No JVD elevation, no bruits. HEART: PMI is not palpable. Heart sounds heard well. No gallops. LUNGS: Clear. ABDOMEN: Soft, nontender. Bowel sounds are active. Obese. EXTREMITIES: No edema. Good pulses. LABORATORY DATA: EKG sinus rhythm within normal limits. Chest x-ray is unremarkable. Hemoglobin 15.4 grams percent. His troponins are negative. BUN is 13, creatinine 1.4. IMPRESSION: 1. Chest pain, atypical for cardiac pain. 2. Suicidal ideation. 3. Hypertension. 4. Elevated hemoglobin and hematocrit and leukocytosis due to some smoking. 5. Schizophrenia. 6. Polysubstance abuse. DISCUSSION: The patient can be transferred to psych facility. Cardiac status is unremarkable. JOB# [id number] RENETTA/NTS
--- NOTE | 2019-01-07 10:24 | Progress Note ---
Subjective - Reason for Consult Consult date: 01/07/19 Reason for consult: Psychiatry Follow-up - Chief Complaint Chief complaint: "I relapsed" 43-year-old AA male who presented to the ER for chest pain, suicidal ideation, and auditory/visual halluciantions. This patient is known to me. Today the patient was calm and cooperative during the assessment. He is adamant that his issues stem from his cocaine use. He stated that he will stay "clean" once dis charged from the hospital. He stated that he will follow up with [facility] for rehab/psy services. He denies SI/HI's and AVH's. Mental Status Exam - Vital signs Last Vital Signs Temp 98.2 F 01/06/19 20:01 Pulse 73 01/06/19 20:01 Resp 17 01/06/19 22:00 BP 152/88 01/06/19 20:01 Pulse Ox 99 01/06/19 20:01 - Exam Narrative exam: MSE: Appearance: calm, cooperative Behavior: regular eye contact Speech: regular rate and tone Mood: "better" Affect: congruent to mood Thought Process: linear Thought Content: denies SI/HI's and AVH's Motor Activity: sitting up in the bed Cognition: A/O x 3 Insight: appropriate Judgment: appropriate Assessment and Plan Impression: Substance Induced Mood/Psychotic DO. Substance Use DO (cocaine). Today the patient was calm and cooperative during the assessment. The patient is no threat to self and his psychosis have resolved. Recommendation/Plan: Rescind 1013. Continue Abilify 5 mg PO HS. Discussed the possible metabolic side effects of Abilify with the patient, he verbalized understanding. Psy sign off. Dispo: The patient can follow up with [facility] for outpatient psy services. Will staff with Dr Selene Barrow.
--- NOTE | 2019-01-07 10:59 | Progress Note ---
Assessment and Plan Pt presented with atypical chest pain which has since resolved. AMI ruled out. 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 Recommend cessation of polysubstance abuse. Pt verbalizes understanding. Currently stable cardiac status. Nothing further to add from cardiac perspective at this time. Will sign off. The patient has been seen in conjunction with Dr. Titus who agrees with the assessment and plan of care. - Patient Problems (1) Atypical chest pain Current Visit: Yes Status: Resolved (2) Suicidal ideations Current Visit: Yes Status: Acute (3) Polysubstance abuse Current Visit: Yes Status: Chronic (4) Schizophrenia Current Visit: Yes Status: Chronic Qualifiers: Schizophrenia type: unspecified Qualified Code(s): F20.9 - Schizophrenia, unspecified (5) Hypertension Current Visit: Yes Status: Chronic Qualifiers: Hypertension type: essential hypertension Qualified Code(s): I10 - Essential (primary) hypertension (6) Tobacco use Current Visit: Yes Status: Chronic Subjective Date of service: 01/07/19 Principal diagnosis: cp Interval history: pt resting in bed, no current cardiac complaints. Objective Last Vital Signs Temp 98.2 F 01/06/19 20:01 Pulse 73 01/06/19 20:01 Resp 17 01/06/19 22:00 BP 152/88 01/06/19 20:01 Pulse Ox 99 01/06/19 20:01 - Physical Examination General: No Apparent Distress HEENT: Positive: PERRL, Normocephaly, Mucus Membranes Moist Neck: Positive: neck supple, trachea midline Cardiac: Positive: Reg Rate and Rhythm, S1/S2 Lungs: Positive: clear to auscultation Neuro: Positive: Grossly Intact Abdomen: Positive: Soft. Negative: Tender Skin: Negative: Rash Musculoskeletal: No Pain Extremities: Absent: edema - Imaging and Cardiology EKG: report reviewed, image reviewed Echo: report reviewed Cardiac cath: report reviewed - Telemetry EKG Rhythm: Sinus Rhythm
[2019-01-07] MEDS: NACL 0.9% 1000 ML 1,000 ML IV SCH (11:03)
[2019-01-07] MEDS: ASPIRIN PO SCH (11:03)
[2019-01-07] MEDS: NORVASC PO SCH (11:04)
[2019-01-07] MEDS: LOVENOX SUB-Q SCH (11:04)
[2019-01-07] MEDS: PEPCID PO SCH (11:04)
[2019-01-07] MEDS: SODIUM CHLORIDE FLUSH SYRINGE 10 ML IV SCH (11:05)
--- NOTE | 2019-01-07 12:22 | Discharge Summary ---
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 Patient has h/o Schizophrenia,bipolar as well has substance abuse including cocaine use. Patient was admitted on suicidal watch with 1013 status,evaluated by cardiology.Patient had recent negative heart cath and normal Echo with EF 55%. Medications optimised.Psych evaluated and followed the patient. Patient's symptoms significantly improved,Psych felt he is safe to DC 1013 status and discharge home to f/u as out pt at [facility] psych/behavioral health dept., Todat pt is comfortable,no new complaints,vital signs stable,physical exam unremarkable.Counselling done and strongly advised to quit recreational drug use. Today Patient is comfotable,no new complaints,vital signs stable,physical exam at discharge is unremarkable Discharge Diagnosis: --Chest pain: Noncardiac chest pain, resolved Serial cardiac enzymes negative, EKG no acute ST-T changes His last left cardiac catheterization was in 10/02 which was negative for significant stenosis Echo;10/02normal EF 55% , Cardiology consult --History of CAD Continue current cardiac medications --Suicidal ideation:On 1013, psych discontinued 1013 OK to discharge home --Hypertension: well controlled Continue antihypertensives, and when necessary medications --Leukocytosis with elevated H&H Probably due to hemoconcentration from Volume depletion No evidence of acute infection On IV fluid, will monitor levels --Schizophrenia/bipolar disorder Management per psych --Gout; stable --History of polysubstance abuse (tobacco, cocaine and heroine) Patient advised to quit recreational drug use , smoking cessation --DVT prophylaxis with Lovenox Disposition: Patient is medically stable Psych cleared for DC home Disposition: DC-01 TO HOME OR SELFCARE Time spent for discharge: 32 min Core Measure Documentation - Palliative Care Palliative Care/ Comfort Measures: Not Applicable - Core Measures Any of the following diagnoses?: none Exam - Constitutional Vitals: Temp Pulse Resp BP Pulse Ox 98.2 F 73 17 152/88 99 01/06/19 20:01 01/07/19 11:04 01/06/19 22:00 01/07/19 11:04 01/06/19 20:01 General appearance: Present: no acute distress, well-nourished, obese - EENT Eyes: Present: PERRL, EOM intact - Neck Neck: Present: supple, normal ROM - Respiratory Respiratory effort: normal Respiratory: bilateral: diminished, negative: rales, rhonchi, wheezing - Cardiovascular Rhythm: regular Heart Sounds: Present: S1 & S2 - Extremities Extremities: no ischemia, No edema - Abdominal General gastrointestinal: Present: soft, non-tender, non-distended, normal bowel sounds - Integumentary Integumentary: Present: clear, warm - Musculoskeletal Musculoskeletal: strength equal bilaterally - Psychiatric Psychiatric: appropriate mood/affect, cooperative - Neurologic Neurologic: CNII-XII intact, moves all extremities Plan Activity: advance as tolerated Diet: other (cardiac diet) Additional Instructions: F/u [facility] health in 1 week. Advised to quit cocain use Follow up with: ZACK GALVANOAKWOOD MD CHRISTIN [Primary Care Provider] - 3-5 Days ANA GRACE MD [Staff Physician] - 7 Days JAHAIRA HUGHES MD [Staff Physician] - 7 Days Prescriptions: ARIPiprazole [Abilify TAB] 5 mg PO HS #14 tablet Aspirin EC 81 mg PO QDAY #30 tablet. amLODIPine [Norvasc] 10 mg PO QDAY #30 tablet Lisinopril [Zestril TAB] 10 mg PO QDAY #30 tablet
== END 2019-01-07 14:50 | disposition home or self-care (01) | DRG 313 ==
LOC: ED 01:02 → EEVIPCON 04:48 → 4A 04:48 → 3A 01-06 20:48
PROVIDERS: ADMIT Internal Medicine; ATTEND Internal Medicine
DX: R07.9 Chest pain, unspecified (principal); R45.851 Suicidal ideations; F19.10 Other psychoactive substance abuse, uncomplicated; F20.9 Schizophrenia, unspecified; I10 Essential (primary) hypertension; J45.909 Unspecified asthma, uncomplicated; I25.10 Atherosclerotic heart disease of native coronary artery without angina pectoris; F17.200 Nicotine dependence, unspecified, uncomplicated; Z82.49 Family history of ischemic heart disease and other diseases of the circulatory system; M10.9 Gout, unspecified; F31.9 Bipolar disorder, unspecified; D72.829 Elevated white blood cell count, unspecified
CPT/HCPCS: 36415; 71045; 80048; 80307; 80320; 81001; 84484; 85025; 85027; 85379; 93005; 93010; G0378; G0480; J1650; J7030

== ENCOUNTER 2019-05-11 23:00 | Emergency (ER) | payer SELFPAY ==
--- NOTE | 2019-05-12 00:13 | Emergency Department Report ---
<TREVOR BELL - Last Filed: 05/12/19 00:10> ED Psych HPI - General Chief Complaint: Psych Stated Complaint: MH EVAL Time Seen by Provider: 05/11/19 23:46 Source: patient Mode of arrival: Ambulatory - History of Present Illness Initial Comments: Patient is 44 years old male with history of schizophrenia. Patient presented to the ER complaining of auditory and visual hallucination and suicidal thoughts. Patient stated that he took some ecstasy today and since then he started having the symptoms. Patient stated that he tried to stop in the middle of traffic several times today. Patient denied any homicidal ideation. Also stated that he is out of his psych medicines. MD Complaint: suicidal ideation Associated Psychiatric Symptoms: suicidal ideation, racing thoughts, auditory hallucinations, visual hallucinations History of same: Yes Quality: constant Context: recent drug abuse Associated Symptoms: denies other symptoms If Self Harm: admits thoughts of, has plan, has acted on plan - Related Data Previous Rx's Medication Instructions Recorded Last Taken Type ARIPiprazole 5 mg PO HS #14 tablet 05/13/19 Unknown Rx buPROPion XL [Wellbutrin XL] 150 mg PO QAM #14 tablet 05/13/19 Unknown Rx Allergies Allergy/AdvReac Type Severity Reaction Status Date / Time haloperidol [From Haldol] Allergy Swelling Verified 05/21/18 05:41 ED Review of Systems Comment: All other systems reviewed and negative Constitutional: denies: chills, fever Respiratory: denies: cough, shortness of breath, SOB with exertion, wheezing Cardiovascular: denies: chest pain, palpitations Gastrointestinal: denies: abdominal pain, nausea Musculoskeletal: denies: back pain Psychiatric: auditory hallucinations, visual hallucinations, suicidal thoughts. denies: depression, homicidal thoughts ED Past Medical Hx - Past Medical History Previous Medical History?: Yes Hx Hypertension: Yes Hx Congestive Heart Failure: No Hx Diabetes: No Hx Psychiatric Treatment: Yes (schizophrenia, Bipolar, Depression) Hx Asthma: Yes Hx COPD: No - Surgical History Past Surgical History?: Yes Hx Coronary Stent: Yes Additional Surgical History: stents x 2 - Social History Smoking Status: Current Every Day Smoker Substance Use Type: Alcohol - Medications Home Medications: Home Medications Medication Instructions Recorded Confirmed Last Taken Type ARIPiprazole 5 mg PO HS #14 tablet 05/13/19 Unknown Rx buPROPion XL [Wellbutrin XL] 150 mg PO QAM #14 tablet 05/13/19 Unknown Rx ED Physical Exam - General Limitations: No Limitations General appearance: alert, in no apparent distress, anxious - Head Head exam: Present: atraumatic, normocephalic - Eye Eye exam: Present: normal appearance - ENT ENT exam: Present: normal exam, normal orophraynx, mucous membranes moist - Neck Neck exam: Present: normal inspection, full ROM. Absent: tenderness, menin gismus, lymphadenopathy, thyromegaly - Respiratory Respiratory exam: Present: normal lung sounds bilaterally - Cardiovascular Cardiovascular Exam: Present: regular rate, normal rhythm, normal heart sounds - GI/Abdominal GI/Abdominal exam: Present: soft, normal bowel sounds. Absent: distended, tenderness, guarding, rebound, rigid, organomegaly, mass, bruit, pulsatile mass, hernia - Extremities Exam Extremities exam: Present: normal inspection, full ROM, normal capillary refill. Absent: tenderness, pedal edema, joint swelling, calf tenderness - Back Exam Back exam: Present: normal inspection, full ROM. Absent: CVA tenderness (R), CVA tenderness (L), muscle spasm, paraspinal tenderness, vertebral tenderness - Neurological Exam Neurological exam: Present: alert, oriented X3, CN II-XII intact - Psychiatric Psychiatric exam: Present: normal mood - Skin Skin exam: Present: warm, intact, normal color ED Disposition Clinical Impression: Ecstasy abuse, History of schizophrenia Drug-induced psychotic disorder Qualifiers: Complication of substance-induced condition: with unspecified complication Qualified Code(s): F19.959 - Other psychoactive substance use, unspecified with psychoactive substance-induced psychotic disorder, unspecified Disposition: DC-01 TO HOME OR SELFCARE Condition: Stable Instructions: Polysubstance Abuse (ED), Schizophrenia (ED), Suicide Prevention for Adults (ED) Additional Instructions: Please avoid any further illicit drug use/abuse. Please follow-up with the [facility] facility, or any other outpatient psychiatric facilities that you were given a referral to by our psychiatric team. They have recommended that you continue the Abilify and Wellbutrin. Return to the emergency Department with any worsening of your symptoms, thoughts of harming yourself or others, or any acute distress. Prescriptions: ARIPiprazole 5 mg PO HS #14 tablet buPROPion XL [Wellbutrin XL] 150 mg PO QAM #14 tablet Referrals: [facility] [Outside] - RYAN <ASHWIN SCHWARZ S - Last Filed: 05/13/19 11:14> ED Review of Systems ROS: Stated complaint: MH EVAL Other details as noted in HPI ED Course Vital Signs 05/11/19 05/12/19 05/12/19 23:10 01:10 10:50 Temperature 97.8 F 98.0 F 98.8 F Pulse Rate 107 H 69 90 Respiratory 18 16 Rate Blood Pressure 163/103 Blood Pressure 113/64 124/90 [Right] O2 Sat by Pulse 97 96 97 Oximetry 05/12/19 05/13/19 05/13/19 20:08 01:00 07:00 Temperature 98.3 F 98.0 F 97.9 F Pulse Rate 95 H 76 104 H Respiratory 18 18 14 Rate Blood Pressure Blood Pressure 149/91 101/62 115/80 [Right] O2 Sat by Pulse 97 98 98 Oximetry ED Medical Decision Making - Lab Data Result diagrams: 05/11/19 23:42 05/11/19 23:42 - Medical Decision Making This patient was originally made a 1013 secondary to some substance abuse and psychosis. The patient does have a history of schizophrenia. He was seen today by the psychiatric team who feels that the patient is safe for discharge home and has rescinded the 1013. They have made the recommendation that the patient continue with his Abilify and Wellbutrin. I saw the patient myself today as well and the patient is awake, oriented, calm and appropriate. He denies any suicidal or homicidal ideations. He will be given outpatient psychiatric referrals and the prescriptions for his psychiatric medications. He did not have any questions about the medication or outpatient follow-up. He has been instructed to return to the emergency Department with any worsening of his symptoms, thoughts of harming himself or others, or with any acute distress. - Differential Diagnosis substance abuse, schizophrenia, schizoaffective, bipolar disorder Critical Care Time: No Critical care attestation.: If time is entered above; I have spent that time in minutes in the direct care of this critically ill patient, excluding procedure time. ED Disposition Is pt being admited?: No Time of Disposition: 11:03
[2019-05-12 00:26] LABS: Basophils # (Auto) 0.1 K/mm3 (0.0-0.1); Basophils % (Auto) 0.9 % (0.0-1.8); Eosinophils # (Auto) 0.1 K/mm3 (0.0-0.4); Eosinophils % (Auto) 1.7 % (0.0-4.3); Hematocrit 49.4 % (35.5-45.6); Hemoglobin 15.9 gm/dl (11.8-15.2); Lymphocytes # (Auto) 1.8 K/mm3 (1.2-5.4); Lymphocytes % (Auto) 22.4 % (13.4-35.0); Mean Corpuscular HGB Conc 32 % (32-34); Mean Corpuscular Volume 84 fl (84-94); Monocytes # (Auto) 0.9 K/mm3 (0.0-0.8); Monocytes % (Auto) 10.8 % (0.0-7.3); Platelet Count 241 K/mm3 (140-440); Red Blood Count 5.88 M/mm3 (3.65-5.03); Red Cell Distribution Width 15.1 % (13.2-15.2)
[2019-05-12 00:38] LABS: BUN/Creatinine Ratio 13; Blood Urea Nitrogen 15 mg/dL (9-20); Calcium 8.7 mg/dL (8.4-10.2); Hemolysis Index 36
[2019-05-12 01:17] LABS: Bilirubin,Urine NEG (Negative); Blood,Urine NEG (Negative); Color,Urine Yellow (Yellow); Mucus,Urine FEW /HPF; Protein,Urine <15 mg/dL mg/dL (Negative)
[2019-05-12 01:23] LABS: Amphetamine Screen,Urine PRESUMPTIVE NEGATIVE; Benzodiazepines Screen,Urine PRESUMPTIVE NEGATIVE; Cannabinoid Screen,Urine PRESUMPTIVE NEGATIVE; Cocaine Screen,Urine PRESUMPTIVE NEGATIVE; Methadone Screen,Urine PRESUMPTIVE NEGATIVE; Opiate Screen,Urine PRESUMPTIVE NEGATIVE
[2019-05-12] MEDS ORDERED: ACETAMINOPHEN 325 MG TAB PO ONE (13:04)
--- NOTE | 2019-05-12 17:01 | Consultation ---
History of Present Illness - Reason for Consult Consult date: 05/12/19 Reason for consult: psychiatric evaluation - Chief Complaint Chief complaint: "I did some ecstasy." - History of Present Psychiatric Illness His presentation is similar to his evaluation 01/02 43-year-old AA male who presented to the ER for chest pain, suicidal ideation, and auditory/visual halluciantions. He relapsed using cocaine and ecstasy 2 days ago. The patient home medication is wellbutrin but he has not been compliant and last saw the psychiatrist 2 months ago. He currently denies SI/HI. He reports hearing screaming and seeing shadows. He denies erratic sleep and a poor appetite. He denies alcohol consumption (etoh). Past psychiatric history - Past Medical History Past Medical History: No medical history Past Surgical History: No surgical history - past Psychiatric treatment and history psychiatric treatment history: Hx of substance abuse. Denies a fam psy hx. He reports multiple trials of medications, including abilify, seroquel and wellbutrin Past psychiatric history - past Psychiatric treatment and history Psych: Addictions, Bipolar, Psychosis psychiatric treatment history: [facility] for mental health reasons 2 x in Aug 2018, December 2018, and x 1 2017 - Social History Social history: lives with someone Mental Status Exam - Exam Orientation: time, place, person Affect: depressed Mood: congruent with affect Thought content: paranoia Thought Process: Circumstantial Perceptions: visual, auditory, hallucinations Speech: normal rate and pattern Concentration: focused Motor activity: normal Level of consciousness: alert Memory: Intact Sleep Symptoms: Difficulty Falling Asleep Interaction: cooperative Assessment and plan: Impression: Substance Induced Mood/Psychotic DO. Substance Use DO (cocaine). Today the patient is calm and cooperative during the assessment. DDx: R/O Bipolar Do with psychosis Recommendation/Plan:Continue 1013 and will reevaluate in 24 hours. restart wellbutrin as he reports this is his home medication. add abilify 5mg hs for psychotic symptoms. He previously tolerated it and voices awareness of potential medication side effects Dispo: reevaluate in 24 hours to determine if he would be appropriate to seek outpatient treatment. Currently the plan is to send him for inpatient treatment. staffed with Dr. Barrow Medications and Allergies Allergies Allergy/AdvReac Type Severity Reaction Status Date / Time haloperidol [From Haldol] Allergy Swelling Verified 05/21/18 05:41 Home Medications Medication Instructions Recorded Confirmed Last Taken Type No Known Home Medications [No 05/12/19 05/12/19 Unknown History Reported Home Medications] Mental Status Exam - Vital signs Last Vital Signs Temp 98.8 F 05/12/19 10:50 Pulse 90 05/12/19 10:50 Resp 16 05/12/19 01:10 BP 124/90 05/12/19 10:50 Pulse Ox 97 05/12/19 10:50 Results Result Diagrams: 05/11/19 23:42 05/11/19 23:42 Abnormal lab results 05/11/19 05/11/19 Range/Units 23:42 23:42 RBC 5.88 H (3.65-5.03) M/mm3 Hgb 15.9 H (11.8-15.2) gm/dl Hct 49.4 H (35.5-45.6) % MCH 27 L (28-32) pg Alpine % (Auto) 10.8 H (0.0-7.3) % Alpine # 0.9 H (0.0-0.8) K/mm3 Acetaminophen < 5.0 L (10.0-30.0) ug/mL All other labs normal.
[2019-05-12] MEDS: ARIPiprazole 5 MG TAB PO SCH ×2 (22:13→22:15)
[2019-05-13 08:23] VITALS: BP 115/80
--- NOTE | 2019-05-13 08:39 | Progress Note ---
Subjective - Reason for Consult Consult date: 05/13/19 Reason for consult: Psychiatry Follow-up - Chief Complaint Chief complaint: "I have to a better job making decisions" 43-year-old AA male who presented to the ER for chest pain, suicidal ideation, and auditory/visual halluciantions. This patient is known to me. Today the patient was calm and cooperative during the assessment. He stated that he ingested ecstasy, but isn't clear what he really took. He stated that he plan to follow up with the mental health professionals at [facility] for outpatient psy services. He denies SI/HI's and AVH's. Mental Status Exam - Vital signs Last Vital Signs Temp 97.9 F 05/13/19 07:00 Pulse 104 H 05/13/19 07:00 Resp 14 05/13/19 07:00 BP 115/80 05/13/19 07:00 Pulse Ox 98 05/13/19 07:00 - Exam Narrative exam: MSE: Appearance: calm, cooperative Behavior: regular eye contact Speech: regular rate and tone Mood: "better" Affect: congruent to mood Thought Process: logical Thought Content: denies SI/HI's and AVH's Motor Activity: sitting up in the bed Cognition: A/O x 3 Insight: appropriate Judgment: appropriate Assessment and Plan Impression: Substance Induced Mood/Psychotic DO. No overt psychosis with the patient. Today the patient was calm and cooperative during the assessment. The patient is no threat to self. The patient is at his baseline. Recommendation/Plan: Rescind 1013. Continue Abilify 5 mg PO HS and Wellbutrin 150 mg PO. Discussed the possible metabolic side effects of Abilify with the patient, he verbalized understanding. Discussed possible suicidality/medication induced arti with the patient reference Wellbutrin, he verbalized understanding. Discussed the importance to abstain from recreational drug use with the patient, he verbalized understanding. Dispo: The patient can follow up with [facility] for outpatient psy services. Will staff with Dr Selene Barrow.
[2019-05-13] MEDS ORDERED: buPROPion XL 150 MG TAB PO SCH (10:00)
== END 2019-05-13 11:30 | disposition home or self-care (01) ==
LOC: EEVIPCON 23:00 → ED 23:00
DX: F39 Unspecified mood [affective] disorder (principal); R45.851 Suicidal ideations; I10 Essential (primary) hypertension; F31.9 Bipolar disorder, unspecified; F20.9 Schizophrenia, unspecified; J45.909 Unspecified asthma, uncomplicated; F17.200 Nicotine dependence, unspecified, uncomplicated
CPT/HCPCS: 36415; 80048; 80307; 80320; 81001; 85025; G0480

== ENCOUNTER 2019-09-03 22:35 | Emergency (ER) | payer SELFPAY ==
[2019-09-03] MEDS ORDERED: ACETAMINOPHEN 325 MG TAB PO ONE (23:14)
--- NOTE | 2019-09-03 23:15 | Emergency Department Report ---
HPI - [facility]: [place] 11 --> 16 The patient is a 44-year-old male present with a chief complaint of visual and auditory hallucinations. The patient states he began using cocaine earlier today and then developed visual and auditory hallucinations. Visual hallucinations include seeing flashing lights and auditory hallucinations includes hearing screens. The patient states he is "still seeing stuff." Patient denies suicidal or homicidal ideation <FREDA RAMSAY - Last Filed: 09/04/19 00:37> <SIDRA WHEATLEY - Last Filed: 09/04/19 15:28> - General Chief Complaint: Psych Time Seen by Provider: 09/03/19 23:04 ED Past Medical Hx - Past Medical History Previous Medical History?: Yes Hx Hypertension: Yes Hx Heart Attack/AMI: Yes (05/2019) Hx Psychiatric Treatment: Yes (schizophrenia, Bipolar, Depression) Hx Asthma: Yes - Surgical History Past Surgical History?: Yes Hx Coronary Stent: Yes Additional Surgical History: stents x 2 - Family History Family history: no significant - Social History Smoking Status: Current Every Day Smoker (1/4 pack/day) Substance Use Type: Alcohol (Rarely), Cocaine <FREDA RAMSAY - Last Filed: 09/04/19 00:37> <SIDRA WHEATLEY - Last Filed: 09/04/19 15:28> - Medications Home Medications: Home Medications Medication Instructions Recorded Confirmed Last Taken Type ARIPiprazole 5 mg PO HS #14 tablet 05/13/19 Unknown Rx buPROPion XL [Wellbutrin XL] 150 mg PO QAM #14 tablet 05/13/19 Unknown Rx ED Review of Systems ROS: Stated complaint: SEEING/HEARING THINGS Other details as noted in HPI Constitutional: no symptoms reported Eyes: denies: eye pain ENT: denies: throat pain Respiratory: no symptoms reported Cardiovascular: denies: chest pain Endocrine: no symptoms reported Gastrointestinal: denies: abdominal pain Genitourinary: denies: dysuria Musculoskeletal: back pain Neurological: headache Psychiatric: auditory hallucinations, visual hallucinations. denies: homicidal thoughts, suicidal thoughts <FREDA RAMSAY - Last Filed: 09/04/19 00:37> ROS: Stated complaint: SEEING/HEARING THINGS Other details as noted in HPI <SIDRA WHEATLEY - Last Filed: 02/19/20 15:28> Physical Exam - Physical Exam Physical Exam: GENERAL: The patient is well-developed well-nourished male sitting on chair not appearing to be in acute distress. [] HEENT: Normocephalic. Atraumatic. Extraocular motions are intact. Patient has moist mucous membranes. NECK: Supple. No meningitic signs are noted. Trachea midline CHEST/LUNGS: Clear to auscultation. There is no respiratory distress noted. HEART/CARDIOVASCULAR: Regular. There is no tachycardia. There is no gallop rub or murmur. ABDOMEN: Abdomen is soft, nontender. Patient has normal bowel sounds. There is no abdominal distention. SKIN: There is no rash. There is no edema. There is no diaphoresis. NEURO: The patient is awake, alert, and oriented. The patient is cooperative. The patient has no focal neurologic deficits. The patient has normal speech. Cranial nerves II through XII grossly intact, no drift MUSCULOSKELETAL: There is no evidence of acute injury. <FREDA RAMSAY - Last Filed: 09/04/19 00:37> - Physical Exam Vital Signs: Vital Signs 09/04/19 09/04/19 09/04/19 01:15 07:43 15:20 Temperature 98.1 F 98.3 F 98.3 F Pulse Rate 86 85 86 Respiratory 18 20 20 Rate Blood Pressure 104/68 147/101 149/84 [Left] O2 Sat by Pulse 99 98 99 Oximetry <SIDRA WHEATLEY - Last Filed: 09/04/19 15:28> ED Course Vital Signs 09/04/19 09/04/19 09/04/19 01:15 07:43 15:20 Temperature 98.1 F 98.3 F 98.3 F Pulse Rate 86 85 86 Respiratory 18 20 20 Rate Blood Pressure 104/68 147/101 149/84 [Left] O2 Sat by Pulse 99 98 99 Oximetry <SIDRA WHEATLEY - Last Filed: 09/04/19 15:28> ED Medical Decision Making - Lab Data Result diagrams: 09/03/19 23:28 09/03/19 23:28 Laboratory Tests 09/03/19 09/03/19 09/03/19 23:20 23:20 23:28 WBC RBC Hgb Hct MCV MCH MCHC RDW Plt Count Lymph % (Auto) [place] % (Auto) Eos % (Auto) Baso % (Auto) Lymph # [place] # Eos # Baso # Seg Neutrophils % Seg Neutrophils # Sodium Potassium Chloride Carbon Dioxide Anion Gap BUN Creatinine Estimated GFR BUN/Creatinine Ratio Glucose Calcium Urine Color Yellow Urine Turbidity Clear Urine pH 5.0 Ur Specific [place] 1.017 Urine Protein <15 mg/dl Urine Glucose (UA) Neg Urine Ketones Neg Urine Blood Sm Urine Nitrite Neg Urine Bilirubin Neg Urine Urobilinogen < 2.0 Ur Leukocyte Esterase Neg Urine WBC (Auto) < 1.0 Urine RBC (Auto) 1.0 Urine Mucus Few Salicylates < 0.3 L Urine Opiates Screen Presumptive negative Urine Methadone Screen Presumptive negative Acetaminophen Ur Barbiturates Screen Presumptive negative Ur Phencyclidine Scrn Presumptive negative Ur Amphetamines Screen Presumptive negative U Benzodiazepines Scrn Presumptive negative Urine Cocaine Screen Presumptive negative U Marijuana (THC) Screen Presumptive negative Drugs of Abuse Note Disclamer Plasma/Serum Alcohol 09/03/19 09/03/19 09/03/19 23:28 23:28 23:28 WBC RBC Hgb Hct MCV MCH MCHC RDW Plt Count Lymph % (Auto) [place] % (Auto) Eos % (Auto) Baso % (Auto) Lymph # [place] # Eos # Baso # Seg Neutrophils % Seg Neutrophils # Sodium 139 Potassium 3.9 Chloride 101.5 Carbon Dioxide 24 Anion Gap 17 BUN 18 Creatinine 1.0 Estimated GFR > 60 BUN/Creatinine Ratio 18 Glucose 106 H Calcium 9.5 Urine Color Urine Turbidity Urine pH Ur Specific [place] Urine Protein Urine Glucose (UA) Urine Ketones Urine Blood Urine Nitrite Urine Bilirubin Urine Urobilinogen Ur Leukocyte Esterase Urine WBC (Auto) Urine RBC (Auto) Urine Mucus Salicylates Urine Opiates Screen Urine Methadone Screen Acetaminophen < 5.0 L Ur Barbiturates Screen Ur Phencyclidine Scrn Ur Amphetamines Screen U Benzodiazepines Scrn Urine Cocaine Screen U Marijuana (THC) Screen Drugs of Abuse Note Plasma/Serum Alcohol < 0.01 09/03/19 23:28 WBC 7.1 RBC 5.24 H Hgb 14.0 Hct 43.7 MCV 83 L MCH 27 L MCHC 32 RDW 15.6 H Plt Count 265 Lymph % (Auto) 31.3 [place] % (Auto) 11.5 H Eos % (Auto) 1.7 Baso % (Auto) 0.8 Lymph # 2.2 [place] # 0.8 Eos # 0.1 Baso # 0.1 Seg Neutrophils % 54.7 Seg Neutrophils # 3.9 Sodium Potassium Chloride Carbon Dioxide Anion Gap BUN Creatinine Estimated GFR BUN/Creatinine Ratio Glucose Calcium Urine Color Urine Turbidity Urine pH Ur Specific [place] Urine Protein Urine Glucose (UA) Urine Ketones Urine Blood Urine Nitrite Urine Bilirubin Urine Urobilinogen Ur Leukocyte Esterase Urine WBC (Auto) Urine RBC (Auto) Urine Mucus Salicylates Urine Opiates Screen Urine Methadone Screen Acetaminophen Ur Barbiturates Screen Ur Phencyclidine Scrn Ur Amphetamines Screen U Benzodiazepines Scrn Urine Cocaine Screen U Marijuana (THC) Screen Drugs of Abuse Note Plasma/Serum Alcohol - Differential Diagnosis Cocaine abuse, schizophrenia <FREDA RAMSAY - Last Filed: 09/04/19 00:37> - Lab Data Result diagrams: 09/03/19 23:28 09/03/19 23:28 - Medical Decision Making Patient did not ever endorse any suicidal homicidal ideation to her ED stay. Patient was evaluated by mental health. Patient is not meet 1013 or emergent inpatient psychiatric treatment and will provide outpatient behavioral resources. <SIDRA WHEATLEY - Last Filed: 09/04/19 15:28> Critical care attestation.: If time is entered above; I have spent that time in minutes in the direct care of this critically ill patient, excluding procedure time. <FREDA RAMSAY - Last Filed: 09/04/19 00:37> Critical care attestation.: If time is entered above; I have spent that time in minutes in the direct care of this critically ill patient, excluding procedure time. <SIDRA WHEATLEY - Last Filed: 09/04/19 15:28> ED Disposition Is pt being admited?: No Does the pt Need Aspirin: No <FREDA RAMSAY - Last Filed: 09/04/19 00:37> Is pt being admited?: No Does the pt Need Aspirin: No Time of Disposition: 15:28 <SIDRA WHEATLEY - Last Filed: 09/04/19 15:28> Clinical Impression: Cocaine abuse, Schizophrenia, Auditory hallucination, Suicidal ideations Disposition: DC-01 TO HOME OR SELFCARE Condition: Stable Instructions: Schizophrenia (ED), Cocaine Abuse (ED) Additional Instructions: Follow-up with your doctor or doctor/clinic provided. Return if symptoms worsen as indicated by your discharge instructions. Referrals: PRIMARY CARE, [Primary Care Provider] - 3-5 Days [facility] [Outside] - 3-5 Days
[2019-09-03 23:54] LABS: Basophils # (Auto) 0.1 K/mm3 (0.0-0.1); Basophils % (Auto) 0.8 % (0.0-1.8); Eosinophils # (Auto) 0.1 K/mm3 (0.0-0.4); Eosinophils % (Auto) 1.7 % (0.0-4.3); Hematocrit 43.7 % (35.5-45.6); Lymphocytes # (Auto) 2.2 K/mm3 (1.2-5.4); Lymphocytes % (Auto) 31.3 % (13.4-35.0); Mean Corpuscular HGB Conc 32 % (32-34); Mean Corpuscular Volume 83 fl (84-94); Monocytes # (Auto) 0.8 K/mm3 (0.0-0.8); Monocytes % (Auto) 11.5 % (0.0-7.3); Platelet Count 265 K/mm3 (140-440); Red Blood Count 5.24 M/mm3 (3.65-5.03); Red Cell Distribution Width 15.6 % (13.2-15.2)
[2019-09-04 00:08] LABS: Bilirubin,Urine NEG (Negative); Blood,Urine SM (Negative); Color,Urine Yellow (Yellow); Mucus,Urine FEW /HPF; Protein,Urine <15 mg/dL mg/dL (Negative); Urobilinogen,Urine < 2.0 mg/dL (<2.0); WBC,Urine < 1.0 /HPF (0.0-6.0)
[2019-09-04 00:15] LABS: BUN/Creatinine Ratio 18; Blood Urea Nitrogen 18 mg/dL (9-20); Calcium 9.5 mg/dL (8.4-10.2); Hemolysis Index 7
[2019-09-04 00:18] LABS: Amphetamine Screen,Urine PRESUMPTIVE NEGATIVE; Benzodiazepines Screen,Urine PRESUMPTIVE NEGATIVE; Cannabinoid Screen,Urine PRESUMPTIVE NEGATIVE; Cocaine Screen,Urine PRESUMPTIVE NEGATIVE; Methadone Screen,Urine PRESUMPTIVE NEGATIVE; Opiate Screen,Urine PRESUMPTIVE NEGATIVE
[2019-09-04 15:22] VITALS: BP 149/84
== END 2019-09-04 15:45 | disposition home or self-care (01) ==
LOC: ED 22:35
DX: F20.9 Schizophrenia, unspecified (principal); I10 Essential (primary) hypertension; J45.909 Unspecified asthma, uncomplicated; F14.10 Cocaine abuse, uncomplicated; F17.200 Nicotine dependence, unspecified, uncomplicated; F32.9 Major depressive disorder, single episode, unspecified; Z88.8 Allergy status to other drugs, medicaments and biological substances; Z98.890 Other specified postprocedural states
CPT/HCPCS: 36415; 80048; 80307; 80320; 81001; 85025; G0480

== ENCOUNTER 2019-10-29 13:06 | Emergency (ER) | payer SELFPAY ==
--- NOTE | 2019-10-29 13:55 | XRay Report ---
CHEST 2 VIEWS INDICATION / CLINICAL INFORMATION: Chest Pain. COMPARISON: 01/05/19. FINDINGS: SUPPORT DEVICES: None. HEART / MEDIASTINUM: The heart size and pulmonary vasculature are normal. The aorta is normal in vish capo. LUNGS / PLEURA: No significant pulmonary or pleural abnormality. No pneumothorax. ADDITIONAL FINDINGS: No significant additional findings. IMPRESSION: No acute abnormality or significant change. Signer Name: Cristi Gomez MD Signed: 10/29/2019 1:50 PM Workstation Name: [id number]
[2019-10-29 14:51] LABS: Basophils # (Auto) 0.1 K/mm3 (0.0-0.1); Basophils % (Auto) 1.2 % (0.0-1.8); Eosinophils % (Auto) 0.4 % (0.0-4.3); Hematocrit 46.7 % (35.5-45.6); Hemoglobin 15.3 gm/dl (11.8-15.2); Lymphocytes # (Auto) 1.8 K/mm3 (1.2-5.4); Mean Corpuscular HGB Conc 33 % (32-34); Mean Corpuscular Volume 82 fl (84-94); Monocytes # (Auto) 0.6 K/mm3 (0.0-0.8); Monocytes % (Auto) 7.8 % (0.0-7.3); Platelet Count 267 K/mm3 (140-440); Red Blood Count 5.71 M/mm3 (3.65-5.03); Red Cell Distribution Width 14.7 % (13.2-15.2)
[2019-10-29 15:01] LABS: INR 1.04 (0.87-1.13)
[2019-10-29 15:03] LABS: Creatine Kinase MB 9.7 ng/mL (0.0-4.0)
[2019-10-29 15:05] LABS: Alanine Aminotransferase 49 units/L (7-56); Albumin 4.9 g/dL (3.9-5)
[2019-10-29 15:06] LABS: BUN/Creatinine Ratio 16; Blood Urea Nitrogen 19 mg/dL (9-20); Calcium 9.5 mg/dL (8.4-10.2); Hemolysis Index 12
[2019-10-29 15:38] LABS: Bilirubin,Direct < 0.2 mg/dL (0-0.2)
[2019-10-29] MEDS ORDERED: SODIUM CHLORIDE 0.9% 1000 ML 1,000 ML IV ONE ×2 (18:19→20:00)
[2019-10-29] MEDS ORDERED: MORPHINE 4 MG/1 ML INJ IV ONE ×2 (18:24→20:00)
[2019-10-29] MEDS ORDERED: ASPIRIN 81 MG TAB CHEW PO ONE (18:24)
--- NOTE | 2019-10-29 18:27 | Emergency Department Report ---
ED Chest Pain HPI - General Chief Complaint: Chest Pain Stated Complaint: CP/SEEING AND HEARING THINGS Time Seen by Provider: 10/29/19 18:19 Source: patient Mode of arrival: Ambulatory Limitations: No Limitations - History of Present Illness Initial Comments: 44-year-old -Serbian male presents to the emergency department with a complaint of some midsternal to left-sided chest pain and shortness of breath that has been going on since yesterday. He denies any fever, back pain, nausea, vomiting, diaphoresis. He has not taken anything for his symptoms prior to presentation. Patient is a tobacco smoker. He admits to snorting some cocaine 2 days ago. He has a past medical history of hypertension, coronary artery disease with stents, and allegedly he had an CA in May of last year at [facility]. He does not have a primary care physician or claims representative. No recent travel or sick contacts at home. - Related Data Previous Rx's Medication Instructions Recorded Last Taken Type ARIPiprazole 5 mg PO HS #14 tablet 05/13/19 Unknown Rx buPROPion XL [Wellbutrin XL] 150 mg PO QAM #14 tablet 05/13/19 Unknown Rx Allergies Allergy/AdvReac Type Severity Reaction Status Date / Time haloperidol [From Haldol] Allergy Swelling Verified 10/29/19 13:13 Heart Score - HEART Score History: Slightly suspicious EKG: Normal Age: < 45 Risk factors: > 3 risk factors or hx of atherosclerotic disease Troponin: < normal limit HEART Score: 2 - Critical Actions Critical Actions: 0-3 pts:0.9-1.7%risk of adverse cardiac event.Candidate for discharge ED Review of Systems ROS: Stated complaint: CP/SEEING AND HEARING THINGS Other details as noted in HPI Comment: All other systems reviewed and negative Constitutional: denies: chills, fever Eyes: denies: eye pain, vision change ENT: denies: ear pain, throat pain Respiratory: shortness of breath. denies: cough Cardiovascular: chest pain. denies: palpitations Gastrointestinal: denies: abdominal pain, vomiting Genitourinary: denies: dysuria, discharge Musculoskeletal: denies: back pain, arthralgia Skin: denies: rash, lesions Neurological: denies: headache, weakness ED Past Medical Hx - Past Medical History Previous Medical History?: Yes Hx Hypertension: Yes Hx Heart Attack/AMI: Yes (05/2019) Hx Congestive Heart Failure: No Hx Diabetes: No Hx Psychiatric Treatment: Yes (schizophrenia, Bipolar, Depression) Hx Asthma: Yes Hx COPD: No - Surgical History Past Surgical History?: Yes Hx Coronary Stent: Yes Additional Surgical History: stents x 2 - Social History Smoking Status: Current Every Day Smoker Substance Use Type: Alcohol, Cocaine, Heroin - Medications Home Medications: Home Medications Medication Instructions Recorded Confirmed Last Taken Type ARIPiprazole 5 mg PO HS #14 tablet 05/13/19 Unknown Rx buPROPion XL [Wellbutrin XL] 150 mg PO QAM #14 tablet 05/13/19 Unknown Rx ED Physical Exam - General Limitations: No Limitations - Other Other exam information: GENERAL: The patient is well-developed well-nourished. HENT: Normocephalic. Atraumatic. Patient has moist mucous membranes. EYES: Extraocular motions are intact. NECK: Supple. Trachea is midline. CHEST/LUNGS: Clear to auscultation. There is no respiratory distress noted. HEART/CARDIOVASCULAR: Regular. There is no tachycardia. ABDOMEN: Abdomen is soft, nontender. Patient has normal bowel sounds. SKIN: Skin is warm and dry. NEURO: The patient is awake, alert, and oriented. The patient is cooperative. The patient has no focal neurologic deficits. Normal speech. MUSCULOSKELETAL: There is no tenderness or deformity. There is no evidence of acute injury. ED Course Vital Signs 10/29/19 10/29/19 13:20 21:18 Temperature 97.9 F 98.0 F Pulse Rate 87 82 Respiratory 20 18 Rate Blood Pressure 155/98 Blood Pressure 135/75 [Right] O2 Sat by Pulse 100 98 Oximetry WILLIAM score - William Score Age > 65: (0) No Aspirin use within the Past 7 Days: (0) No 3 or more CAD Risk Factors: (1) Yes 2 or more Angina events in past 24 hrs: (1) Yes Known CAD with more than 50% Stenosis: (0) No Elevated Cardiac Markers: (0) No ST Deviation Greater than 0.5mm: (0) No WILLIAM Score: 2 ED Medical Decision Making - Lab Data Result diagrams: 10/29/19 14:23 10/29/19 14:23 - EKG Data -: EKG Interpreted by Me EKG shows normal: sinus rhythm, axis, intervals, QRS complexes, ST-T waves (No nspecific ST Q waves) Rate: normal - EKG Data When compared to previous EKG there are: no significant change Interpretation: unchanged when compared t (01/06/19) - Radiology Data Radiology results: image reviewed interpreted by me: Chest x-ray does not show any acute process. There are no pleural effusions, obvious pneumonia and there is no pneumothorax. - Medical Decision Making This patient presents to the emergency department with a complaint of some midsternal to left-sided chest pain that is been going on since yesterday. EKG does not show any signs of ST elevation CA and is unchanged from previous. Ches t x-ray does not show any pneumonia, pleural effusions, pneumothorax, focal consolidation, or any other acute process. Patient's labs have been mostly unremarkable including negative troponins x2, but the patient did have an elevated CK level. This is most likely consistent with his recent cocaine use, however the patient does not appear acutely intoxicated. His CK was at 2600 and came down to 2100 before the patient even received any IV fluid resuscitation. He received about 1.5 L of IV fluid and the CK level is trending downwards. The patient was reevaluated multiple times over multiple hours and says he is feeling improved. He is low on the heart and WILLIAM score. Patient is low on the Wells score criteria and negative on the pulmonary embolism rule out criteria. The patient's contact information has been sent to [facility] and someone from their office should be contacting him shortly for close outpatient follow-up as part of our low risk chest pain protocol. The patient has been instructed to return to the emergency department with any worsening of his symptoms or any acute distress. We discussed tobacco and illicit drug cessation. Critical Care Time: No Critical care attestation.: If time is entered above; I have spent that time in minutes in the direct care of this critically ill patient, excluding procedure time. ED Disposition Clinical Impression: Tobacco use, Cocaine use Hypertension Qualifiers: Hypertension type: essential hypertension Qualified Code(s): I10 - Essential (primary) hypertension Chest pain Qualifiers: Chest pain type: unspecified Qualified Code(s): R07.9 - Chest pain, unspecified Disposition: - TO HOME OR SELFCARE Is pt being admited?: No Condition: Stable Instructions: Chest Pain (ED), Cocaine Abuse (ED), Hypertension (ED) Additional Instructions: Please quit smoking. Please avoid any further cocaine use. I am sending your contact information to [facility], and someone should be contacting you from their office for close outpatient follow-up. Return to the emergency department with any worsening of your symptoms or any acute distress. Referrals: [facility] [Provider Group] - 2-[address] [facility] [Outside] - 2-3 Days [facility] [Primary Care Provider] - 2-3 Days RAJEEV GARLAND MD [Staff Physician] - 2-3 Days Time of Disposition: 22:25
[2019-10-29 21:21] VITALS: BP 135/75
== END 2019-10-29 21:42 | disposition home or self-care (01) ==
LOC: ED 13:06
DX: F14.90 Cocaine use, unspecified, uncomplicated (principal); I10 Essential (primary) hypertension; I25.2 Old myocardial infarction; J45.909 Unspecified asthma, uncomplicated; F20.9 Schizophrenia, unspecified; F31.9 Bipolar disorder, unspecified; Z72.0 Tobacco use; Z79.899 Other long term (current) drug therapy; Z88.8 Allergy status to other drugs, medicaments and biological substances
CPT/HCPCS: 36415; 71046; 80048; 80076; 82550; 82553; 83735; 83880; 84484; 85025; 85610; 85730; 93005; 93010; 96374; 99284; J2270; J7030

== ENCOUNTER 2019-11-08 17:30 | Emergency (ER) | payer SELFPAY ==
--- NOTE | 2019-11-08 18:14 | XRay Report ---
CHEST 2 VIEWS INDICATION / CLINICAL INFORMATION: Chest Pain. COMPARISON: 10/29/19. FINDINGS: SUPPORT DEVICES: None. HEART / MEDIASTINUM: The heart size and pulmonary vasculature are normal. The aorta is normal in vish capo. LUNGS / PLEURA: No significant pulmonary or pleural abnormality. No pneumothorax. ADDITIONAL FINDINGS: No significant additional findings. IMPRESSION:No acute abnormality or significant change. Signer Name: Cristi Gomez MD Signed: 11/08/2019 6:10 PM Workstation Name: [id number]
[2019-11-08 18:28] LABS: Basophils # (Auto) 0.1 K/mm3 (0.0-0.1); Basophils % (Auto) 1.4 % (0.0-1.8); Eosinophils % (Auto) 0.6 % (0.0-4.3); Hematocrit 46.6 % (35.5-45.6); Hemoglobin 15.4 gm/dl (11.8-15.2); Mean Corpuscular HGB Conc 33 % (32-34); Mean Corpuscular Volume 82 fl (84-94); Monocytes # (Auto) 0.7 K/mm3 (0.0-0.8); Monocytes % (Auto) 10.2 % (0.0-7.3); Platelet Count 303 K/mm3 (140-440); Red Blood Count 5.67 M/mm3 (3.65-5.03); Red Cell Distribution Width 14.6 % (13.2-15.2)
[2019-11-08 18:42] LABS: BUN/Creatinine Ratio 16; Blood Urea Nitrogen 18 mg/dL (9-20); Calcium 9.3 mg/dL (8.4-10.2); Hemolysis Index 59
[2019-11-08] MEDS ORDERED: ALPRAZolam 0.5 MG TAB PO PRN (20:37)
[2019-11-08] MEDS ORDERED: ZIPRASIDONE MESYLATE 20 MG VIAL IM PRN (20:37)
--- NOTE | 2019-11-08 20:46 | Emergency Department Report ---
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 The patient also has a history of hypertension and cocaine use, and possible psychiatric disease. The patient presents to the ER today with multiple complaints. His first complaint is suicidality, and wanting to kill himself. He believes that he will run into traffic. He denies recent overdose. He admits to recent cocaine consumption. He also endorses chest pain. The chest pain is in the right side of the chest and intermittently in the left side of the chest. The pain does not radiate to the back, arms or neck. There is no description of vomiting, diaphoresis, or exertional shortness of breath. The patient indicates no recent surgery, or hospitalizations, or posterior leg pain and/or leg swelling. There is no complaint of exertional shortness of breath. To me, he denies diarrhea and urinary symptoms. He endorsed that his stools were dark. He makes no complaint of hematemesis, and he indicates that he is not using blood thinners. The patient does not describe exacerbating or relieving factors. -: Gradual, hour(s) Location: chest Quality: other Consistency: other Improves with: other Worsens with: other Associated Symptoms: other - Related Data Previous Rx's Medication Instructions Recorded Last Taken Type ARIPiprazole 5 mg PO HS #14 tablet 11/11/19 Unknown Rx buPROPion XL [Wellbutrin XL] 150 mg PO QAM #14 tablet 11/11/19 Unknown Rx Allergies Allergy/AdvReac Type Severity Reaction Status Date / Time haloperidol [From Haldol] Allergy Swelling Verified 11/08/19 17:38 ED Review of Systems Constitutional: denies: fever Eyes: denies: eye discharge ENT: denies: congestion Respiratory: denies: wheezing Cardiovascular: chest pain Gastrointestinal: abdominal pain. denies: hematemesis, hematochezia Genitourinary: as per HPI Musculoskeletal: as per HPI Skin: as per HPI Neurological: as per HPI Psychiatric: as per HPI, suicidal thoughts Hematological/Lymphatic: as per HPI ED Past Medical Hx - Past Medical History Previous Medical History?: Yes Hx Hypertension: Yes Hx Heart Attack/AMI: Yes (05/2019) Hx Congestive Heart Failure: No Hx Diabetes: No Hx of Cancer: No Hx Psychiatric Treatment: Yes (schizophrenia, Bipolar, Depression) Hx Asthma: Yes Hx COPD: No - Surgical History Past Surgical History?: Yes Hx Coronary Stent: Yes Additional Surgical History: stents x 2 - Social History Smoking Status: Current Every Day Smoker Substance Use Type: Alcohol, Cocaine, Other - Medications Home Medications: Home Medications Medication Instructions Recorded Confirmed Last Taken Type ARIPiprazole 5 mg PO HS #14 tablet 11/11/19 Unknown Rx buPROPion XL [Wellbutrin XL] 150 mg PO QAM #14 tablet 11/11/19 Unknown Rx ED Physical Exam - General Limitations: No Limitations General appearance: alert, obese - Head Head exam: Present: atraumatic, normocephalic - Eye Eye exam: Present: normal appearance, EOMI. Absent: nystagmus - ENT ENT exam: Present: normal exam, normal orophraynx, mucous membranes moist, normal external ear exam - Neck Neck exam: Present: normal inspection, full ROM. Absent: tenderness, meningismus - Respiratory Respiratory exam: Present: normal lung sounds bilaterally. Absent: respiratory distress - Cardiovascular Cardiovascular Exam: Present: regular rate, normal rhythm, normal heart sounds. Absent: bradycardia, tachycardia, irregular rhythm, systolic murmur, diastolic murmur, rubs, gallop - GI/Abdominal GI/Abdominal exam: Present: soft. Absent: distended, tenderness, guarding, rebound, rigid, pulsatile mass - Rectal Rectal exam: Present: deferred - Extremities Exam Extremities exam: Present: normal inspection, full ROM, other (2+ pulses noted in the bilateral upper and lower extremities. There is no palpable cord. negative Homans sign. Muscular compartments are soft. The pelvis is stable.). Absent: pedal edema, calf tenderness - Back Exam Back exam: Present: normal inspection. Absent: tenderness, CVA tenderness (R), CVA tenderness (L), paraspinal tenderness, vertebral tenderness - Neurological Exam Neurological exam: Present: alert, oriented X3, normal gait, other (No facial droop. Tongue midline. Extraocular movements intact bilaterally. Facial sensa tion intact to light touch in V1, V2, V3 distribution bilaterally. 5 and a 5 strength in 4 extremities. Sensation intact to light touch in 4 extremities.). Absent: motor sensory deficit - Psychiatric Psychiatric exam: Present: suicidal ideation - Skin Skin exam: Present: warm, dry, intact, normal color. Absent: rash ED Course - Reevaluation(s) Reevaluation #1: 11/08/19 21:12 Differential diagnosis, including but not limited to: Psychosis, suicidality, GERD, gastritis, hiatal hernia, vasospasm, malingering, secondary gain, noncardiac chest pain Assessment and plan: 44-year-old gentleman, with resolved tachycardia, who is not currently tachypneic or hypoxic, low risk by Wells criteria, EKG is unchanged from prior, troponin negative x1, cardiac catheterization from last year reviewed and appreciated, symptoms present for greater than 8 hours, therefore, as per the [employer] clinical policy, acute myocardial infarction may be excluded with 1 set of troponins/cardiac enzymes. Screening laboratory studies otherwise unremarkable, and appear to be at baseline. The patient declined a rectal examination. Patient placed on hold, psychiatric consultation is requested. Patient counseled to avoid and abstain from cocaine consumption. At the moment, the patient does not appear to have an immediate medical c ontraindication to psychiatric admission, evaluation, consultation and placement. ED Medical Decision Making - Lab Data Result diagrams: 11/08/19 17:44 11/08/19 17:44 Vital Signs 11/08/19 17:38 Temperature 98.1 F Pulse Rate 102 H Respiratory 16 Rate Blood Pressure 156/92 O2 Sat by Pulse 100 Oximetry Lab Results 11/08/19 11/08/19 11/08/19 Range/Units 17:44 17:44 17:44 WBC (4.5-11.0) K/mm3 RBC (3.65-5.03) M/mm3 Hgb (11.8-15.2) gm/dl Hct (35.5-45.6) % MCV (84-94) fl MCH (28-32) pg MCHC (32-34) % RDW (13.2-15.2) % Plt Count (140-440) K/mm3 Lymph % (Auto) (13.4-35.0) % Kingfisher % (Auto) (0.0-7.3) % Eos % (Auto) (0.0-4.3) % Baso % (Auto) (0.0-1.8) % Lymph # (1.2-5.4) K/mm3 [place] # (0.0-0.8) K/mm3 Eos # (0.0-0.4) K/mm3 Baso # (0.0-0.1) K/mm3 Seg Neutrophils % (40.0-70.0) % Seg Neutrophils # (1.8-7.7) K/mm3 Sodium 141 (137-145) mmol/L Potassium 4.5 (3.6-5.0) mmol/L Chloride 103.5 (98-107) mmol/L Carbon Dioxide 24 (22-30) mmol/L Anion Gap 18 mmol/L BUN 18 (9-20) mg/dL Creatinine 1.1 (0.8-1.5) mg/dL Estimated GFR > 60 ml/min BUN/Creatinine Ratio 16 % Glucose 87 (75-100) mg/dL Calcium 9.3 (8.4-10.2) mg/dL Magnesium (1.7-2.3) mg/dL Total Creatine Kinase (55-170) units/L Troponin T (0.00-0.029) ng/mL Salicylates < 0.3 L (2.8-20.0) mg/dL Acetaminophen < 5.0 L (10.0-30.0) ug/mL Plasma/Serum Alcohol (0-0.07) % 11/08/19 11/08/19 11/08/19 Range/Units 17:44 17:44 17:44 WBC 7.0 (4.5-11.0) K/mm3 RBC 5.67 H (3.65-5.03) M/mm3 Hgb 15.4 H (11.8-15.2) gm/dl Hct 46.6 H (35.5-45.6) % MCV 82 L (84-94) fl MCH 27 L (28-32) pg MCHC 33 (32-34) % RDW 14.6 (13.2-15.2) % Plt Count 303 (140-440) K/mm3 Lymph % (Auto) 28.0 (13.4-35.0) % Kingfisher % (Auto) 10.2 H (0.0-7.3) % Eos % (Auto) 0.6 (0.0-4.3) % Baso % (Auto) 1.4 (0.0-1.8) % Lymph # 2.0 (1.2-5.4) K/mm3 King[place]isher # 0.7 (0.0-0.8) K/mm3 Eos # 0.0 (0.0-0.4) K/mm3 Baso # 0.1 (0.0-0.1) K/mm3 Seg Neutrophils % 59.8 (40.0-70.0) % Seg Neutrophils # 4.2 (1.8-7.7) K/mm3 Sodium (137-145) mmol/L Potassium (3.6-5.0) mmol/L Chloride (98-107) mmol/L Carbon Dioxide (22-30) mmol/L Anion Gap mmol/L BUN (9-20) mg/dL Creatinine (0.8-1.5) mg/dL Estimated GFR ml/min BUN/Creatinine Ratio % Glucose (75-100) mg/dL Calcium (8.4-10.2) mg/dL Magnesium (1.7-2.3) mg/dL Total Creatine Kinase (55-170) units/L Troponin T 0.015 (0.00-0.029) ng/mL Salicylates (2.8-20.0) mg/dL Acetaminophen (10.0-30.0) ug/mL Plasma/Serum Alcohol < 0.01 (0-0.07) % 11/08/19 Range/Units 17:44 WBC (4.5-11.0) K/mm3 RBC (3.65-5.03) M/mm3 Hgb (11.8-15.2) gm/dl Hct (35.5-45.6) % MCV (84-94) fl MCH (28-32) pg MCHC (32-34) % RDW (13.2-15.2) % Plt Count (140-440) K/mm3 Lymph % (Auto) (13.4-35.0) % Kingfisher % (Auto) (0.0-7.3) % Eos % (Auto) (0.0-4.3) % Baso % (Auto) (0.0-1.8) % Lymph # (1.2-5.4) K/mm3 [place] # (0.0-0.8) K/mm3 Eos # (0.0-0.4) K/mm3 Baso # (0.0-0.1) K/mm3 Seg Neutrophils % (40.0-70.0) % Seg Neutrophils # (1.8-7.7) K/mm3 Sodium (137-145) mmol/L Potassium (3.6-5.0) mmol/L Chloride (98-107) mmol/L Carbon Dioxide (22-30) mmol/L Anion Gap mmol/L BUN (9-20) mg/dL Creatinine (0.8-1.5) mg/dL Estimated GFR ml/min BUN/Creatinine Ratio % Glucose (75-100) mg/dL Calcium (8.4-10.2) mg/dL Magnesium 2.50 H (1.7-2.3) mg/dL Total Creatine Kinase 423 H (55-170) units/L Troponin T (0.00-0.029) ng/mL Salicylates (2.8-20.0) mg/dL Acetaminophen (10.0-30.0) ug/mL Plasma/Serum Alcohol (0-0.07) % - EKG Data -: EKG Interpreted by Ak EKG shows normal: sinus rhythm Rate: normal - EKG Data When compared to previous EKG there are: no significant change 11/08/19 21:09 Sinus rhythm, 98 bpm, normal axis, QTC 344 ms, incomplete right bundle branch block, W[place] interval within normal limits, the EKG is not a STEMI, it is unchanged from prior EKG from October 29, 2019 - Radiology Data Radiology results: pending, report reviewed, image reviewed Print Report Referring Physician: ED DOC Patient Name: ZANDER BORREGO Date of : 1975 Sex: Male Report Date: 2019-11-08 Report Status: Finalized Findings [facility] [address] [place] [address] XRay Report Signed Patient: ZANDER BORREGO MR#: [id number] : 1975 Acct:[id number] Age/Sex: 44 / M ADM Date: 11/08/19 Loc: ED Attending Dr: Ordering Physician: ED MD SKYLAR Date of Service: 11/08/19 Procedure(s): XR chest routine 2V Accession Number(s): [id number] cc: ED MD SKYLAR Fluoro Time In Minutes: CHEST 2 VIEWS INDICATION / CLINICAL INFORMATION: Chest Pain. COMPARISON: 10/29/19. FINDINGS: SUPPORT DEVICES: None. HEART / MEDIASTINUM: The heart size and pulmonary vasculature are normal. The aorta is normal in caliber. LUNGS / PLEURA: No significant pulmonary or pleural abnormality. No pneumothorax. ADDITIONAL FINDINGS: No significant additional findings. IMPRESSION:No acute abnormality or significant change. Signer Name: Cristi Gomez MD Signed: 11/08/2019 6:10 PM Workstation Name: [id number] Transcribed By: RT Dictated By: Cristi Gomez MD Electronically Authenticated By: Cristi Gomez MD Signed Date/Time: 11/08/191809 DD/ 08 TD/TT: ED Disposition Clinical Impression: Cocaine use, Substance induced mood disorder Disposition: DC-01 TO HOME OR SELFCARE Is pt being admited?: No Does the pt Need Aspirin: No Condition: Good Instructions: Cocaine Abuse (ED), Mood Disorders (ED), Depression (ED), Suicide Prevention for Adults (ED) Additional Instructions: Please avoid any further cocaine or illicit drug abuse/use. Follow-up with a primary care physician in the next few days. Please follow-up with the [facility] or any of the outpatient referrals given to you by the psychiatric team. Return to the emergency department with any worsening of your symptoms, thoughts of harming your self or others, or with any acute distress. Prescriptions: ARIPiprazole 5 mg PO HS #14 tablet buPROPion XL [Wellbutrin XL] 150 mg PO QAM #14 tablet Referrals: PRIMARY CAREMD [Primary Care Provider] - 2-3 Days [facility] [Outside] - 2-3 Days [facility] [Provider Group] - 2-3 Days <ASHWIN SCHWARZ - Last Filed: 11/11/19 12:48> ED Review of Systems ROS: Stated complaint: CP/SEEING THINGS Other details as noted in HPI ED Course Vital Signs 11/08/19 11/08/19 11/09/19 17:38 21:00 07:40 Temperature 98.1 F 97.9 F 97.4 F L Pulse Rate 102 H 82 75 Respiratory 16 16 20 Rate Blood Pressure 156/92 Blood Pressure 151/75 119/80 [Left] O2 Sat by Pulse 100 99 100 Oximetry 11/09/19 11/09/19 11/09/19 15:00 20:00 21:21 Temperature 97.4 F L 98.0 F Pulse Rate 73 71 Respiratory 17 20 18 Rate Blood Pressure Blood Pressure 131/82 143/80 [Left] O2 Sat by Pulse 99 100 Oximetry 11/10/19 11/10/19 11/10/19 01:00 08:36 10:27 Temperature 98.2 F 97.7 F Pulse Rate 72 74 74 Respiratory 20 17 Rate Blood Pressure 150/88 Blood Pressure 138/75 150/88 [Left] O2 Sat by Pulse 100 98 Oximetry 11/10/19 11/10/19 11/11/19 14:00 19:48 02:00 Temperature 97.9 F 98.9 F 98.6 F Pulse Rate 74 68 63 Respiratory 18 18 18 Rate Blood Pressure 138/74 Blood Pressure 123/66 140/89 [Left] O2 Sat by Pulse 98 100 98 Oximetry 11/11/19 11/11/19 11/11/19 07:57 11:50 11:51 Temperature 98.6 F Pulse Rate 70 70 70 Respiratory 20 Rate Blood Pressure 137/86 137/86 Blood Pressure 137/86 [Left] O2 Sat by Pulse 100 Oximetry ED Medical Decision Making - Lab Data Result diagrams: 11/08/19 17:44 11/08/19 17:44 - Medical Decision Making This patient initially was here for some depression and suicidal thoughts that appear to have been fueled by recent cocaine use/abuse. The patient has been in the emergency department for close to 67 hours and has been reevaluated multiple times by the psychiatric team. At this time the patient is calm and appropriate. He denies any suicidal or homicidal ideations. He is asking for discharge to home and has plans of returning to work. He was seen by the psychiatric team this morning and had his 1013 rescinded. The patient will be provided outpatient psychiatric referrals and he has also received prescriptions for psychiatric medications. The patient has been instructed to return to the emergency department with any worsening of his symptoms, thoughts of harming himself or others, or with any acute distress. Critical care attestation.: If time is entered above; I have spent that time in minutes in the direct care of this critically ill patient, excluding procedure time. ED Disposition Is pt being admited?: No Time of Disposition: 12:46
[2019-11-08] MEDS: ARIPiprazole 5 MG TAB PO SCH (23:03)
[2019-11-09 02:17] LABS: Bilirubin,Urine NEG (Negative); Blood,Urine NEG (Negative); Color,Urine Yellow (Yellow); Mucus,Urine 3+ /HPF; Protein,Urine <15 mg/dL mg/dL (Negative); Urobilinogen,Urine < 2.0 mg/dL (<2.0)
[2019-11-09 02:27] LABS: Amphetamine Screen,Urine PRESUMPTIVE NEGATIVE; Benzodiazepines Screen,Urine PRESUMPTIVE NEGATIVE; Cannabinoid Screen,Urine PRESUMPTIVE NEGATIVE; Methadone Screen,Urine PRESUMPTIVE NEGATIVE; Opiate Screen,Urine PRESUMPTIVE NEGATIVE
[2019-11-09 02:39] LABS: Cocaine Screen,Urine PRESUMPTIVE POSITIVE
[2019-11-09] MEDS: FAMOTIDINE 20 MG TAB PO SCH (09:56)
[2019-11-09] MEDS: ASPIRIN 81 MG TAB CHEW PO SCH (09:56)
[2019-11-09] MEDS ORDERED: amLODIPine 5 MG TAB PO SCH (10:00)
[2019-11-09] MEDS: LISINOPRIL 10 MG TAB PO SCH (10:09)
[2019-11-09] MEDS: amLODIPine 10 MG TAB PO SCH ×2 (10:11→11:09)
[2019-11-09] MEDS: buPROPion SR 100 MG TAB PO SCH ×2 (11:54→21:59)
[2019-11-09] MEDS: ARIPiprazole 5 MG TAB PO SCH (21:59)
[2019-11-09] MEDS ORDERED: buPROPion SR 100 MG TAB PO SCH (22:00)
[2019-11-10] MEDS ORDERED: amLODIPine 5 MG TAB ONE (09:47)
--- NOTE | 2019-11-10 10:09 | Consultation ---
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 The patient also has a history of hypertension and cocaine use, and possible psychiatric disease. The patient presents to the ER today with multiple complaints. His first complaint is suicidality, and wanting to kill himself. He believes that he will run into traffic. He denies recent overdose. He admits to recent cocaine consumption. He also endorses chest pain. The chest pain is in the right side of the chest and intermittently in the left side of the chest. The pain does not radiate to the back, arms or neck. There is no description of vomiting, diaphoresis, or exertional shortness of breath. The patient indicates no recent surgery, or hospitalizations, or posterior leg pain and/or leg swelling. There is no complaint of exertional shortness of breath. To me, he denies diarrhea and urinary symptoms. He endorsed that his stools were dark. He makes no complaint of hematemesis, and he indicates that he is not using blood thinners. The patient does not describe exacerbating or relieving factors. Per MHA: Pt is a 44 year old AA male reporting to the ED for SI w/plans. Pt resides with "my lady," at an apartment. 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 Pt reports cocaine use; pt tox was positive for cocaine. Pt reports current thoughts and to harm himself/suicidal; pt reports that he is worried that he might harm himself if he returns home due to not being on his medications. Pt reports multiple plans (walk in traffic, overdose, cut my wrist).Pt has had a history of attempts via walking in front of cars and cutting himself.Pt reports he is tired of the special needs patient next door yelling, but pt reports that he will not kill the pt or harm him, "but all this noise; I can't get no peace." Pt reports that he is currently experiencing auditory hallucinations; "a bunch of screaming noises." Pt is alert and oriented x 4. Pt is able to fully pa rticipate and vocalize his needs and stressors. Pt has good attention, concentration and memory. Pt has fair judgement and insight. Pt reports a mental health history and carries a diagnosis of, "Depression stuff, paranoia, schizophrenia and Bipolar." Pt was previously prescribed Abilify and Wellbutrin; pt has been off of the medications for about 6 weeks "because we been quarantined, and they changed my appointments." Pt was seeing his outpatient mental health providers at the [facility]/[place], [place]. HPI Patient is a 44-year-old unemployed -[place] male with past psychiatric history of paranoid schizophrenia, depression and illicit drug use with past medical history of hypertension, CAD and gout who presents to the ED for mental health evaluation. Patient reported he has been having a lot of mood swings lately precipitated by the current [id number] quarantine orders which he feels has been making him crazy at home and a lot more anxious. He said he has been concerned about not being able to go out, not been able to drink smoke and enjoy things that he normally does. Patient reported cocaine use 2 to 3 days prior to ED arrival. Says the quarantine has been him making him hear voices more irritated, with intermittent off and on sleep cycle prompting him to use drugs in an effort to calm down. Patient reports noncompliance with medication at home. Reports that mood has gotten a bit better since he has been here, denies hallucinations but still endorses suicidal ideation. Patient endorses family support from mom and dad who are still alive and lives down the street from the emergency room and also reports having good relationship with his 1 child. Patient reports he currently lives at home with his girlfriend who has also been supportive. UDS positive for cocaine PAST PSYCHIATRIC HISTORY: Diagnoses: Paranoid schizophrenia, depression Suicide attempts or Self-harm behavior: Yes tried jumping in front of moving vehicle and cut self Prior psychiatric hospitalizations: Yes Substance Abuse history: Cocaine Previous psychiatric medications tried: Abilify, and Wellbutrin Outpatient treatment: Yes, at [facility] PAST MEDICAL HISTORY: HTN, CAD and GOUT Family Psychiatric History None reported or documented SOCIAL HISTORY Marital Status: Single Living Arrangements: With GF Employment Status: Unemployed Access to guns/weapons: None reported Education: GED History of Abuse: None reported Legal History: None REVIEW OF SYSTEMS Constitutional: Negative for weight loss ENT: Negative for stridor Respiratory: Negative for cough or hemoptysis All other systems reviewed and are negative MENTAL STATUS EXAMINATION General Appearance and Behavior: Age appropriate, good hygiene, wearing appropriate clothes, lying in bed, goodeye contact, cooperative with questioning and polite Cooperation: Participating/engaged Psychomotor Behavior: unremarkable and within normal limits Mood: slightly better Affect and affective range: anxious euthymic, irritable Thought Process: Fluent/Logical Thought Content: Paranoid about quarantine Speech: Normal volume, Regular rate and rhythm Intellectual Functioning: Average Suicidal Ideation:Suicidal Homicidal Ideation: Denies HI Impulse Control: Unimpaired Insight and Judgment: Normal insight and judgment Attention: Normal Orientation: Alert, oriented, anxious Assessment and Plan - Psychiatric problem (1) Cocaine use disorder, severe, dependence Current Visit: Yes Status: Acute (2) Substance induced mood disorder Current Visit: Yes Status: Acute (3) Paranoid type schizophrenia Current Visit: Yes Status: Acute RECOMMENDATIONS MEDICATIONS: Restarted home meds Risks, benefits and alternatives of medications discussed with the patient, questions answered and consent obtained from patient. PSYCHOTHERAPY: Supportive psychotherapy provided MEDICAL: Per primary team DELIRIUM PRECAUTIONS: Please re-orient patient frequently, keep lights on during the day, and minimize benzodiazepines and opiates as these medications could worsen patient's confusion. FORESTRY ADVISER: Per medical team DISPOSITION: indication for acute inpatient psychiatric hospitalization LEGAL STATUS: 1013 FOLLOW-UP: Will follow Thank you for the consult. Please contact with any questions and/or concerns. Medications and Allergies Allergies Allergy/AdvReac Type Severity Reaction Status Date / Time haloperidol [From Haldol] Allergy Swelling Verified 11/08/19 17:38 Home Medications Medication Instructions Recorded Confirmed Last Taken Type ARIPiprazole 5 mg PO HS #14 tablet 05/13/19 Unknown Rx buPROPion XL [Wellbutrin XL] 150 mg PO QAM #14 tablet 05/13/19 Unknown Rx Active Meds: Active Medications Alprazolam (Xanax) 0.5 mg PO Q4HR PRN PRN Reason: Agitation Amlodipine Besylate (Amlodipine) 10 mg PO DAILY [facility] Last Admin: 11/09/19 11:09 Dose: Not Given Documented by: Aripiprazole (Aripiprazole) 5 mg PO HS [facility] Last Admin: 11/09/19 21:59 Dose: 5 mg Documented by: Aspirin (Baby Aspirin) 81 mg PO QDAY [facility] Last Admin: 11/09/19 09:56 Dose: 81 mg Documented by: Bupropion HCl (Wellbutrin Sr) 100 mg PO BID [facility] Last Admin: 11/09/19 21:59 Dose: 100 mg Documented by: Famotidine (Pepcid) 20 mg PO QDAY [facility] Last Admin: 11/09/19 09:56 Dose: 20 mg Documented by: Lisinopril (Zestril) 10 mg PO QDAY [facility] Last Admin: 11/09/19 10:09 Dose: 10 mg Documented by: Ziprasidone (Geodon) 10 mg IM Q2H PRN PRN Reason: Agitation Mental Status Exam - Vital signs Last Vital Signs Temp 97.7 F 11/10/19 08:36 Pulse 74 11/10/19 08:36 Resp 17 11/10/19 08:36 BP 150/88 11/10/19 08:36 Pulse Ox 98 11/10/19 08:36 Results Result Diagrams: 11/08/19 17:44 11/08/19 17:44 All other labs normal. Assessment and Plan - Psychiatric problem (1) Cocaine use disorder, severe, dependence Current Visit: Yes Status: Acute (2) Substance induced mood disorder Current Visit: Yes Status: Acute (3) Paranoid type schizophrenia Current Visit: Yes Status: Acute
[2019-11-10] MEDS: LISINOPRIL 10 MG TAB PO SCH (10:27)
[2019-11-10] MEDS: ASPIRIN 81 MG TAB CHEW PO SCH (10:30)
[2019-11-10] MEDS: FAMOTIDINE 20 MG TAB PO SCH (10:30)
[2019-11-10] MEDS: buPROPion SR 100 MG TAB PO SCH ×2 (10:31→21:37)
[2019-11-10] MEDS: amLODIPine 10 MG TAB PO SCH ×2 (10:43→12:46)
[2019-11-10] MEDS: ARIPiprazole 5 MG TAB PO SCH (21:36)
[2019-11-11 07:58] VITALS: BP 137/86
[2019-11-11] MEDS ORDERED: WATER FOR INJ Sterile (PF) 10 ML ONE (11:37)
[2019-11-11] MEDS: LISINOPRIL 10 MG TAB PO SCH (11:50)
[2019-11-11] MEDS: FAMOTIDINE 20 MG TAB PO SCH (11:50)
[2019-11-11] MEDS: buPROPion SR 100 MG TAB PO SCH (11:50)
[2019-11-11] MEDS: ASPIRIN 81 MG TAB CHEW PO SCH (11:50)
[2019-11-11] MEDS: amLODIPine 10 MG TAB PO SCH (11:51)
--- NOTE | 2019-11-11 11:56 | Progress Note ---
Subjective - Reason for Consult Consult date: 11/11/19 Reason for consult: MHE Requesting physician: ZION SNOWDEN - Chief Complaint Chief complaint: Per ED Nurse: [id number] pt resting quietly on recliner, resp even and non labored, no acute distress noted, no s/s of self harm noted, ambulates as needed to restroom without difficulty, used phone multiple times this shift. HPI Patient assessed in room this a.m., resting comfortably, patient denies any suicidal homicidal thoughts patient reports improved mood. Patient also stated he spoke with his partner yesterday and his employer had called him that he can get back to and work would like to go home. Patient has been compliant with taking medications. MENTAL STATUS EXAMINATION General Appearance and Behavior: Age appropriate, good hygiene, wearing appropriate clothes, lying in bed, good eye contact, cooperative with questioning and polite Cooperation: Participating/engaged Psychomotor Behavior: unremarkable and within normal limits Mood:good Affect and affective range: congruent with mood Thought Process: Fluent/Logical Thought Content: No AVH Speech: Normal volume, Regular rate and rhythm Intellectual Functioning: Average Suicidal Ideation: Denies Homicidal Ideation: Denies HI Impulse Control: Unimpaired Insight and Judgment: Normal insight and judgment Attention: Normal Orientation: Alert, oriented, anxious Assessment and Plan - Psychiatric problem (1) Cocaine use disorder, severe, dependence Current Visit: Yes Status: Acute (2) Substance induced mood disorder Current Visit: Yes Status: Acute (3) Paranoid type schizophrenia Current Visit: Yes Status: Acute RECOMMENDATIONS MEDICATIONS: Restarted home meds, pt compliant, to go home with rx. Risks, benefits and alternatives of medications discussed with the patient, questions answered and consent obtained from patient. PSYCHOTHERAPY: Supportive psychotherapy provided MEDICAL: Per primary team DELIRIUM PRECAUTIONS: Please re-orient patient frequently, keep lights on during the day, and minimize benzodiazepines and opiates as these medications could worsen patient's confusion. TRIMMER MEAT: Per medical team DISPOSITION: No indication for acute inpatient psychiatric hospitalization LEGAL STATUS: 1013 rescinded FOLLOW-UP: Will sign off Thank you for the consult. Please contact with any questions and/or concerns. Mental Status Exam - Vital signs Last Vital Signs Temp 98.6 F 11/11/19 07:57 Pulse 70 11/11/19 11:51 Resp 20 11/11/19 07:57 BP 137/86 11/11/19 11:51 Pulse Ox 100 11/11/19 07:57 Assessment and Plan - Patient Problems (1) Cocaine use disorder, severe, dependence Current Visit: Yes Status: Acute (2) Substance induced mood disorder Current Visit: Yes Status: Acute (3) Paranoid type schizophrenia Current Visit: Yes Status: Acute
== END 2019-11-11 13:44 | disposition home or self-care (01) ==
LOC: EEVIPCON 17:30 → ED 17:30
DX: F14.90 Cocaine use, unspecified, uncomplicated (principal); F39 Unspecified mood [affective] disorder; I10 Essential (primary) hypertension; I25.2 Old myocardial infarction; F31.9 Bipolar disorder, unspecified; J45.909 Unspecified asthma, uncomplicated; F17.200 Nicotine dependence, unspecified, uncomplicated; Z98.890 Other specified postprocedural states; Z79.899 Other long term (current) drug therapy; Z88.8 Allergy status to other drugs, medicaments and biological substances
CPT/HCPCS: 36415; 71046; 80048; 80307; 80320; 81001; 82550; 83735; 84484; 85025; 93005; G0480; J3486

== ENCOUNTER 2019-11-21 00:26 | Emergency (ER) | payer SELFPAY ==
--- NOTE | 2019-11-21 00:55 | Emergency Department Report ---
<GILL BANGURA III - Last Filed: 11/21/19 03:02> ED Psych HPI - General Chief Complaint: Psych Stated Complaint: HEARING THINGS/MH Time Seen by Provider: 11/21/19 00:52 Source: patient Mode of arrival: Ambulatory Limitations: No Limitations - History of Present Illness Initial Comments: Patient is a 44-year-old male that presents emergency room with complaints of suicidal ideation and hallucinations. Patient also complains of paranoia. Patient states he has a plan to jump into traffic. Patient states he has been using heroin and cocaine for the past few days. Patient states that the drugs are making his suicidal ideations worse. Patient states his hallucinations started a week ago. Patient states his suicidal ideation started yesterday. Patient states his paranoia started 2 days ago. Patient denies homicidal ideations. Patient complains of depression. MD Complaint: suicidal ideation, feels depressed -: Sudden Associated Psychiatric Symptoms: depression, suicidal ideation, auditory hallucinations History of same: Yes Quality: constant Improves With: other Worsens With: drug use Context: recent drug abuse, significant life stressor Associated Symptoms: denies other symptoms. denies: confusion, headache, shortness of breath, nausea, vomiting, syncope, insomnia Treatments Prior to Arrival: none If Self Harm: admits thoughts of, has plan - Related Data Home Medications Medication Instructions Recorded Confirmed Last Taken Aspirin [Adult Aspirin] 81 mg PO DAILY 11/21/19 11/21/19 Unknown risperiDONE [RisperDAL] 2 mg PO DAILY 11/21/19 11/21/19 Unknown Nitroglycerin 1 tab SL PRN 11/22/19 Unknown Previous Rx's Medication Instructions Recorded Last Taken Type buPROPion XL [Wellbutrin XL] 150 mg PO QAM #14 tablet 11/11/19 Unknown Rx Allergies Allergy/AdvReac Type Severity Reaction Status Date / Time haloperidol [From Haldol] Allergy Swelling Verified 11/08/19 17:38 ED Review of Systems Constitutional: denies: chills, fever Eyes: denies: eye pain, eye discharge, vision change ENT: denies: ear pain, throat pain Respiratory: denies: cough, shortness of breath, wheezing Cardiovascular: denies: chest pain, palpitations Endocrine: no symptoms reported Gastrointestinal: denies: abdominal pain, nausea, diarrhea Genitourinary: denies: urgency, dysuria Musculoskeletal: denies: back pain, joint swelling, arthralgia Skin: denies: rash, lesions Neurological: denies: headache, weakness, paresthesias Psychiatric: depression, auditory hallucinations, suicidal thoughts. denies: anxiety Hematological/Lymphatic: denies: easy bleeding, easy bruising ED Past Medical Hx - Past Medical History Previous Medical History?: Yes Hx Hypertension: Yes Hx Heart Attack/AMI: Yes (05/2019) Hx Congestive Heart Failure: No Hx Diabetes: No Hx Psychiatric Treatment: Yes (schizophrenia, Bipolar, Depression) Hx Asthma: Yes Hx COPD: No - Surgical History Past Surgical History?: Yes Hx Coronary Stent: Yes Additional Surgical History: stents x 2 - Family History Family history: no significant - Social History Smoking Status: Current Every Day Smoker Substance Use Type: Alcohol, Cocaine, Heroin - Medications Home Medications: Home Medications Medication Instructions Recorded Confirmed Last Taken Type buPROPion XL [Wellbutrin XL] 150 mg PO QAM #14 tablet 11/11/19 11/21/19 Unknown Rx Aspirin [Adult Aspirin] 81 mg PO DAILY 11/21/19 11/21/19 Unknown History risperiDONE [RisperDAL] 2 mg PO DAILY 11/21/19 11/21/19 Unknown History Nitroglycerin 1 tab SL PRN 11/22/19 Unknown History ED Physical Exam - General Limitations: No Limitations General appearance: alert, in no apparent distress - Head Head exam: Present: atraumatic, normocephalic - Eye Eye exam: Present: normal appearance - ENT ENT exam: Present: mucous membranes moist - Neck Neck exam: Present: normal inspection - Respiratory Respiratory exam: Present: normal lung sounds bilaterally. Absent: respiratory distress, wheezes, rales - Cardiovascular Cardiovascular Exam: Present: regular rate, normal rhythm. Absent: systolic murmur, diastolic murmur, rubs, gallop - GI/Abdominal GI/Abdominal exam: Present: soft, normal bowel sounds. Absent: distended, t enderness, guarding - Rectal Rectal exam: Present: deferred - Extremities Exam Extremities exam: Present: normal inspection - Back Exam Back exam: Present: normal inspection - Neurological Exam Neurological exam: Present: alert, oriented X3 - Psychiatric Psychiatric exam: Present: normal affect, normal mood - Skin Skin exam: Present: warm, dry, intact, normal color. Absent: rash ED Course - Reevaluation(s) Reevaluation #1: Initial evaluation done. Patient's found to have suicidal ideations and hallucinations. Patient placed on a 1013. Patient also placed on ER hold. Patient's labs will be done. 11/21/19 00:54 Reevaluation #2: I discussed all results and clinical findings with patient. I discussed plan of care with patient. Patient agrees with plan of care. Patient is medically cleared. Patient remained in the ER as an ER hold and a 1013. Patient's final disposition will come from our psychiatric and mental health team. 11/21/19 02:56 ED Medical Decision Making - Lab Data Result diagrams: 11/21/19 01:05 11/21/19 01:05 - Medical Decision Making Patient is a 44-year-old male that presents emergency room with complaints of suicidal ideations and depression and hallucinations. Patient also had recent drug use. Patient states that drug use made his symptoms worse. Patient's labs mentioned unremarkable except for cocaine on drug screen. patient is medically clear. Patient's final disposition will come from our psychiatry team and mental health team. Patient is stable from medical standpoint. Patient was placed 1013 in the ER hold immediately in the ER. - Differential Diagnosis Suicidal ideation, drug abuse, depression, hallucinations. ED Disposition Clinical Impression: Suicidal ideations, Cocaine use disorder, severe, dependence, Cocaine use, Drug-induced psychotic disorder Disposition: DC-01 TO HOME OR SELFCARE Is pt being admited?: No Does the pt Need Aspirin: No Condition: Stable Instructions: Cocaine Abuse (ED), Schizophrenia (ED) Additional Instructions: Please follow-up with your primary care physician. Continue with your medications as prescribed. You have been given multiple outpatient referrals for substance abuse programs and psychiatric assistance. Return to the emergency department with any worsening of your symptoms, thoughts of harming your self or others, or with any acute distress. Please avoid any further illicit drug use. Referrals: PRIMARY CARE, [Primary Care Provider] - 3-5 Days Time of Disposition: 02:57 <ASHWIN SCHWARZ - Last Filed: 11/22/19 14:19> ED Review of Systems ROS: Stated complaint: HEARING THINGS/MH Other details as noted in HPI ED Course Vital Signs 11/21/19 11/21/19 11/21/19 00:29 01:00 06:50 Temperature 97.8 F 97.6 F Pulse Rate 89 77 Respiratory 20 18 18 Rate Blood Pressure 150/89 Blood Pressure 124/67 [Left] O2 Sat by Pulse 98 99 Oximetry 11/21/19 11/21/19 11/21/19 07:29 08:43 19:25 Temperature 98.0 F 97.9 F Pulse Rate 82 75 Respiratory 20 20 18 Rate Blood Pressure Blood Pressure 129/78 135/79 [Left] O2 Sat by Pulse 100 100 99 Oximetry 11/22/19 11/22/19 11/22/19 01:33 07:31 10:24 Temperature 97.8 F 98.0 F Pulse Rate 64 68 Respiratory 18 20 Rate Blood Pressure Blood Pressure 118/71 135/93 [Left] O2 Sat by Pulse 97 99 99 Oximetry ED Medical Decision Making - Lab Data Result diagrams: 11/21/19 01:05 11/21/19 01:05 - Medical Decision Making This patient appears to have presented secondary to drug-induced psychosis and had some complaints of suicidal ideations at that time. The patient has now been in this emergency department for more than 37 hours. At this time he is awake, calm, oriented and appropriate. He was seen by the psychiatric team today and he denies any suicidal ideations and does not display any psychosis. His vital signs are currently within normal limits. The patient says that he has medications at home that he can take. We discussed stopping any further illicit drug use. He will return to the emergency department with any return of his symptoms, thoughts of harming himself or others, or with any acute distress. Critical care attestation.: If time is entered above; I have spent that time in minutes in the direct care of this critically ill patient, excluding procedure time. ED Disposition Is pt being admited?: No
[2019-11-21 01:21] LABS: Basophils # (Auto) 0.1 K/mm3 (0.0-0.1); Basophils % (Auto) 1.4 % (0.0-1.8); Eosinophils # (Auto) 0.1 K/mm3 (0.0-0.4); Eosinophils % (Auto) 0.9 % (0.0-4.3); Hematocrit 44.5 % (35.5-45.6); Hemoglobin 14.5 gm/dl (11.8-15.2); Lymphocytes # (Auto) 2.1 K/mm3 (1.2-5.4); Lymphocytes % (Auto) 36.4 % (13.4-35.0); Mean Corpuscular HGB Conc 33 % (32-34); Mean Corpuscular Volume 83 fl (84-94); Monocytes # (Auto) 0.7 K/mm3 (0.0-0.8); Monocytes % (Auto) 12.3 % (0.0-7.3); Platelet Count 266 K/mm3 (140-440); Red Blood Count 5.38 M/mm3 (3.65-5.03); Red Cell Distribution Width 14.8 % (13.2-15.2)
[2019-11-21 01:28] LABS: Bilirubin,Urine NEG (Negative); Blood,Urine NEG (Negative); Color,Urine Yellow (Yellow); Mucus,Urine FEW /HPF; Protein,Urine <15 mg/dL mg/dL (Negative)
[2019-11-21 01:39] LABS: Alanine Aminotransferase 42 units/L (7-56); Albumin 4.4 g/dL (3.9-5); BUN/Creatinine Ratio 18; Blood Urea Nitrogen 21 mg/dL (9-20); Calcium 9.6 mg/dL (8.4-10.2); Hemolysis Index 11
[2019-11-21 01:43] LABS: Amphetamine Screen,Urine PRESUMPTIVE NEGATIVE; Benzodiazepines Screen,Urine PRESUMPTIVE NEGATIVE; Cannabinoid Screen,Urine PRESUMPTIVE NEGATIVE; Methadone Screen,Urine PRESUMPTIVE NEGATIVE; Opiate Screen,Urine PRESUMPTIVE NEGATIVE
[2019-11-21 02:16] LABS: Cocaine Screen,Urine PRESUMPTIVE POSITIVE
[2019-11-22] MEDS ORDERED: buPROPion XL 150 MG TAB PO SCH (10:00)
[2019-11-22] MEDS ORDERED: NON-FORMULARY EACH (Risperidone [Risperdal] 2 MG) PO SCH (10:00)
[2019-11-22] MEDS ORDERED: ASPIRIN EC 81 MG TAB PO SCH (10:00)
[2019-11-22] MEDS ORDERED: risperiDONE 1 MG TAB PO SCH (10:00)
--- NOTE | 2019-11-22 12:53 | Consultation ---
History of Present Illness - Reason for Consult Consult date: 11/22/19 Reason for consult: SI, Cocaine/heroine use, AH - History of Present Psychiatric Illness The patient's medical record was reviewed and the patient's progress was discussed with the nursing staff. The nurse caring for the patient says the patient has been calm and cooperative and has not displayed any psychosis. She also says the patient has denied any SI/HI during her care. Jorge Lucio is a 44y/o male patient who states he was admitted into the hospital because he "started using drugs and having crazy thoughts." He is a/o x 3. He is calm, cooperative, and polite. He makes good eye contact. The patient said at the time he was "paranoid and thinking crazy things." He says "I had been off of my meds and started using cocaine." The patient denies SI/HI at present, but stated, "man, those drugs had me feeling like that. But I'm good now." He describes his mood as "good," stating, "I got some new goals. I don't want to end up like some of these folks in here." He denies suicide attempts in the past. The patient says he has a history of "paranoid schizophrenia." He says he takes "wellbutrin and depakote." He says "I have my medications at home. 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 The patient states he "smokes a pack of cigarets a day." He says, "I'm not ready to give that up yet. I quit once before but started back." He denies any problems with his appetite or sleep cycle. He denies hallucinations of any kind. PAST PSYCHIATRIC HISTORY: Diagnoses: Paranoid schizophrenia Suicide attempts or Self-harm behavior: Denies Prior psychiatric hospitalizations: Once Substance Abuse history: Cocaine, sometimes crack Previous psychiatric medications tried: Depakote and wellbutrin Outpatient treatment: Yes PAST MEDICAL HISTORY: None reported Family Psychiatric History: None reported or documented SOCIAL HISTORY Current living status: Lives with signnificant other Highest level of education: GED, trade school Marital status: Single Legal history: Denies History of abuse: Denies REVIEW OF SYSTEMS Constitutional: Negative for weight loss ENT: Negative for stridor Respiratory: Negative for cough or hemoptysis All other systems reviewed and are negative MENTAL STATUS EXAMINATION General Appearance: Dressed appropriately Behavior: Calm, cooperative. Polite Mood: "Good" Affect: Congruent with stated mood Speech: Normal tone and pace Thought Process: Goal oriented Thought Content: Suicidal Ideation: Denies Homicidal Ideation: Denies Hallucinations: Denies Delusions: None elicited Insight and Judgment: Limited Memory/Cognition: Limited Assessment Drug Induced Mood Disorder Plan Discontinue 1013 MEDICATIONS: No scripts given. Continue previously prescribed medications Risks, benefits and alternatives of medications discussed with the patient, questions answered and consent obtained from patient. PSYCHOTHERAPY: Supportive psychotherapy provided MEDICAL: Per primary team DELIRIUM PRECAUTIONS: Please re-orient patient frequently, keep lights on during the day, and minimize benzodiazepines and opiates as these medications could worsen patient's confusion. FOOD SERVICE CASHIER: Per Medical team. DISPOSITION: The patient does not meet the requirement for acute inpatient psychiatric hospitalization at this time. He may discharge home once medically clear. The patient understands that if SI/HI, or any feelings of endangerment are to return he should seek immediate help including but not limited to the crisis hotline, 911 or/and ER. The patient is to abstain from all illicit drug use and alcohol. The water main pipe layer to further discuss safety plan with the patient and give the patient referrals for drug rehabilitation programs. The patient is to follow up with outpatient psychiatry or primary in 7 to 14 days upon discharge The treatment plan was explained to the patient. Her verbalizes understanding and agreement of plan. Will sign off. Thank you for the consult. Please contact with any questions or concerns. Medications and Allergies Allergies Allergy/AdvReac Type Severity Reaction Status Date / Time haloperidol [From Haldol] Allergy Swelling Verified 11/08/19 17:38 Home Medications Medication Instructions Recorded Confirmed Last Taken Type buPROPion XL [Wellbutrin XL] 150 mg PO QAM #14 tablet 11/11/19 11/21/19 Unknown Rx Aspirin [Adult Aspirin] 81 mg PO DAILY 11/21/19 11/21/19 Unknown History risperiDONE [RisperDAL] 2 mg PO DAILY 11/21/19 11/21/19 Unknown History Nitroglycerin 1 tab SL PRN 11/22/19 Unknown History Active Meds: Active Medications Aspirin (Halfprin Ec) 81 mg PO DAILY [facility] Last Admin: 11/22/19 10:23 Dose: 81 mg Documented by: Bupropion HCl (Wellbutrin Xl) 150 mg PO QAM [facility] Last Admin: 11/22/19 09:47 Dose: 150 mg Documented by: Risperidone (Risperdal) 2 mg PO DAILY [facility] Last Admin: 11/22/19 09:47 Dose: 2 mg Documented by: Mental Status Exam - Vital signs Last Vital Signs Temp 98.0 F 11/22/19 07:31 Pulse 68 11/22/19 07:31 Resp 20 11/22/19 07:31 BP 135/93 11/22/19 07:31 Pulse Ox 99 11/22/19 10:24 Results Result Diagrams: 11/21/19 01:05 11/21/19 01:05 All other labs normal.
[2019-11-22 14:35] VITALS: BP 155/83
== END 2019-11-22 14:34 | disposition home or self-care (01) ==
LOC: EEVIPCON 00:26 → ED 00:26
DX: F19.959 Other psychoactive substance use, unspecified with psychoactive substance-induced psychotic disorder, unspecified (principal); F11.90 Opioid use, unspecified, uncomplicated; F14.20 Cocaine dependence, uncomplicated; R45.851 Suicidal ideations; I10 Essential (primary) hypertension; F25.0 Schizoaffective disorder, bipolar type; I25.2 Old myocardial infarction; J45.909 Unspecified asthma, uncomplicated; F17.200 Nicotine dependence, unspecified, uncomplicated; Z88.8 Allergy status to other drugs, medicaments and biological substances; Z95.5 Presence of coronary angioplasty implant and graft
CPT/HCPCS: 36415; 80053; 80307; 80320; 81001; 85025; G0480

== ENCOUNTER 2020-05-21 21:39 | Emergency (ER) | payer SELFPAY ==
[2020-05-21 22:54] LABS: Basophils # (Auto) 0.1 K/mm3 (0.0-0.1); Eosinophils # (Auto) 0.1 K/mm3 (0.0-0.4); Eosinophils % (Auto) 0.9 % (0.0-4.3); Hematocrit 43.8 % (35.5-45.6); Lymphocytes # (Auto) 2.1 K/mm3 (1.2-5.4); Lymphocytes % (Auto) 27.9 % (13.4-35.0); Mean Corpuscular HGB Conc 34 % (32-34); Mean Corpuscular Volume 82 fl (84-94); Monocytes # (Auto) 0.7 K/mm3 (0.0-0.8); Monocytes % (Auto) 9.6 % (0.0-7.3); Platelet Count 250 K/mm3 (140-440); Red Blood Count 5.36 M/mm3 (3.65-5.03); Red Cell Distribution Width 15.4 % (13.2-15.2)
[2020-05-21 23:13] LABS: BUN/Creatinine Ratio 14; Blood Urea Nitrogen 20 mg/dL (9-20); Calcium 9.2 mg/dL (8.4-10.2); Hemolysis Index 57
--- NOTE | 2020-05-21 23:41 | Emergency Department Report ---
<GILL BANGURA III Juju - Last Filed: 05/22/20 02:24> ED Psych HPI - General Chief Complaint: Psych Stated Complaint: MENTAL HEALTH Time Seen by Provider: 05/21/20 23:32 Source: patient Mode of arrival: Ambulatory Limitations: No Limitations - History of Present Illness Initial Comments: Patient is a 44-year-old male that presents emergency room with complaints of suicidal ideations. Patient states he has a plan to walk into traffic. Patient states that he has been drinking nonstop for a couple days. Patient states that he was walking in the middle the street when his son found him because he was trying to get hit by a car. Patient states been feeling suicidal for couple days but they worsened today. Patient states he is also having audio hallucinations. Patient states the hallucinations are screaming at him and telling him to hurt himself. Patient denies homicidal ideations. Patient states his last alcoholic drink was 1 hour ago. Patient states his son brought him here for a mental evaluation. Patient states he is off his bipolar and schizophrenia medications for many months. Patient denies physical complaints. Patient denies chest pain or shortness of breath. Patient denies recent travel. Patient denies recent international travel. Patient denies exposure to the novel coronavirus. Patient denies sick contacts. Patient denies fever and chills. Patient denies cough. Patient denies diarrh ea. Patient denies coming in contact with anybody with symptoms of the novel coronavirus. MD Complaint: suicidal ideation, feels depressed -: Sudden Associated Psychiatric Symptoms: depression, suicidal ideation, auditory hallucinations History of same: Yes Quality: constant Improves With: medication Worsens With: achohol Context: recent drug abuse, significant life stressor Associated Symptoms: denies: confusion, headache, shortness of breath, nausea, vomiting, syncope, insomnia If Self Harm: admits thoughts of, has plan, has acted on plan - Related Data Home Medications Medication Instructions Recorded Confirmed Last Taken Aspirin [Adult Aspirin] 81 mg PO DAILY 11/21/19 11/21/19 Unknown Nitroglycerin 1 tab SL PRN 11/22/19 Unknown Previous Rx's Medication Instructions Recorded Last Taken Type buPROPion XL [Wellbutrin Xl] 150 mg PO QAM #30 tab.er.24h 05/22/20 Unknown Rx risperiDONE [RisperDAL] 2 mg PO DAILY #30 tablet 05/22/20 Unknown Rx Allergies Allergy/AdvReac Type Severity Reaction Status Date / Time haloperidol [From Haldol] Allergy Swelling Verified 11/08/19 17:38 ED Review of Systems Constitutional: denies: chills, fever Eyes: denies: eye pain, eye discharge, vision change ENT: denies: ear pain, throat pain Respiratory: denies: cough, shortness of breath, wheezing Cardiovascular: denies: chest pain, palpitations Endocrine: no symptoms reported Gastrointestinal: denies: abdominal pain, nausea, diarrhea Genitourinary: denies: urgency, dysuria Musculoskeletal: denies: back pain, joint swelling, arthralgia Skin: denies: rash, lesions Neurological: denies: headache, weakness, paresthesias Psychiatric: depression, auditory hallucinations, suicidal thoughts. denies: anxiety, visual hallucinations, homicidal thoughts Hematological/Lymphatic: denies: easy bleeding, easy bruising ED Past Medical Hx - Past Medical History Previous Medical History?: Yes Hx Hypertension: Yes Hx Heart Attack/AMI: Yes (05/2019) Hx Congestive Heart Failure: No Hx Diabetes: No Hx Psychiatric Treatment: Yes (schizophrenia, Bipolar, Depression) Hx Asthma: Yes Hx COPD: No - Surgical History Past Surgical History?: Yes Hx Coronary Stent: Yes (x2 stents) Additional Surgical History: stents x 2 - Family History Family history: no significant - Social History Smoking Status: Current Every Day Smoker Substance Use Type: Alcohol, Cocaine - Medications Home Medications: Home Medications Medication Instructions Recorded Confirmed Last Taken Type Aspirin [Adult Aspirin] 81 mg PO DAILY 11/21/19 11/21/19 Unknown History Nitroglycerin 1 tab SL PRN 11/22/19 Unknown History buPROPion XL [Wellbutrin Xl] 150 mg PO QAM #30 tab.er.24h 05/22/20 Unknown Rx risperiDONE [RisperDAL] 2 mg PO DAILY #30 tablet 05/22/20 Unknown Rx ED Physical Exam - General Limitations: No Limitations General appearance: alert, in no apparent distress - Head Head exam: Present: atraumatic, normocephalic - Eye Eye exam: Present: normal appearance - ENT ENT exam: Present: mucous membranes moist - Neck Neck exam: Present: normal inspection - Respiratory Respiratory exam: Present: normal lung sounds bilaterally. Absent: respiratory distress - Cardiovascular Cardiovascular Exam: Present: regular rate, normal rhythm. Absent: systolic murmur, diastolic murmur, rubs, gallop - GI/Abdominal GI/Abdominal exam: Present: soft, normal bowel sounds - Rectal Rectal exam: Present: deferred - Extremities Exam Extremities exam: Present: normal inspection - Back Exam Back exam: Present: normal inspection - Neurological Exam Neurological exam: Present: alert, oriented X3 - Psychiatric Psychiatric exam: Present: depressed, suicidal ideation - Skin Skin exam: Present: warm, dry, intact, normal color. Absent: rash ED Course - Reevaluation(s) Reevaluation #1: Patient is medically cleared. 05/22/20 02:29 ED Medical Decision Making - Lab Data Result diagrams: 05/21/20 22:21 05/21/20 22:21 - Medical Decision Making Patient is a 44-year-old male that presents emergency room with complaints of suicidal ideations, depression, acute alcohol intoxication's, audio hallucinations. Patient is also off of his psychiatric medications. Patient's been on alcohol drinking binge for the last few days. Patient states he is having thoughts of killing self when he was walking a male history with the intent of getting run over by car when his son found him and his son brought him to the hospital for a mental health evaluation. Patient had labs done which were essentially unremarkable except for an elevated blood alcohol and UDS positive for cocaine. Patient is medically cleared. Patient's final disposition will come from our psychiatric and mental health team. Patient will remain in the ER hold until cleared by our psychiatry team. - Differential Diagnosis Suicidal ideation, depression, alcohol abuse, hallucinations, noncompliance ED Disposition Clinical Impression: Cocaine use disorder, severe, dependence, Substance induced mood disorder Acute alcohol intoxication Qualifiers: Complication of substance-induced condition: uncomplicated Qualified Code(s): F10.920 - Alcohol use, unspecified with intoxication, uncomplicated Disposition: [id number]/[id number] PSY HOSP/PSY UNIT Is pt being admited?: No Does the pt Need Aspirin: No Condition: Stable Instructions: Suicidal Feelings: How to Help Yourself, Finding Treatment for Addiction Additional Instructions: Outpatient COMMUNITY Behavioral Health Resources: [facility] ([facility]) [address] [place] [id number] / Monday thru Monday - 8am - 5pm [facility] Address: [address] [place] [address] Monday thru Monday- 7am-2pm [facility] Address: [address] [place] [address] Monday thru Monday: 8:30AM-5PM SUBSTANCE ABUSE PROGRAMS: [facility]: Location: [place], [place] [employer] Address: [address] [place] [address] [facility]: Address: [address] [place] [address] [facility]: Address: [address] [place] [address] [facility]: Address: [address] [place] [address] [facility] Address: [address] [place] [id number]. Please contact above numbers to attempt placement into free based program. Medicaid Programs: [facility]: Address: [address] [place] [address] [facility]: Address: [address] [place] [address] [facility] [place] Crisis Line: Suicide Prevention Line: Crisis Text Line: Text START to [phone] Emergency: 911 Prescriptions: risperiDONE [RisperDAL] 2 mg PO DAILY #30 tablet buPROPion XL [Wellbutrin Xl] 150 mg PO QAM #30 tab.er.24h Referrals: PRIMARY CARE,MD [Primary Care Provider] - 3-5 Days Time of Disposition: 02:31 <SIDRA WHEATLEY - Last Filed: 05/22/20 15:32> ED Review of Systems ROS: Stated complaint: MENTAL HEALTH Other details as noted in HPI ED Course Vital Signs 05/21/20 05/21/20 05/22/20 22:09 22:22 02:10 Temperature 97.5 F L 98.3 F 98.5 F Pulse Rate 98 H 118 H 84 Respiratory 16 18 18 Rate Blood Pressure 134/73 122/79 Blood Pressure 119/64 [Right] O2 Sat by Pulse 94 97 97 Oximetry 05/22/20 07:50 Temperature 97.8 F Pulse Rate 92 H Respiratory 18 Rate Blood Pressure Blood Pressure 115/103 [Right] O2 Sat by Pulse 98 Oximetry ED Medical Decision Making - Lab Data Result diagrams: 05/21/20 22:21 05/21/20 22:21 - Medical Decision Making As per consult History of Present Psychiatric Illness Jorge Lucio is a 44y/o male patient who is known to me from previous visi ts. He is calm and cooperative. He is conversational. The patient is asking about medication for his back. He says he's having back pain. Mr. Lucio says he presented to the hospital after "drinking for 3 days." He says "my drinking leads to cocaine" and my son thought I should come. The patient initially denies SI/HI. He then says, "I need to stay about two days." Informed the patient there was no reason to keep him at this time. He then says, "well it comes and goes but I don't want to go to a facility. Just keep me here for a couple of days." Advised the patient that this is an ER and we just don't house patients. The patient denies hallucinations of any kind. He denies any alcohol withdrawals. Discussed with the patient alcohol and cocaine cessation, and substance rehabilitation. PAST PSYCHIATRIC HISTORY: Diagnoses: Bipolar, and schizophrenia Suicide attempts or Self-harm behavior: Yes Prior psychiatric hospitalizations: Yes Substance Abuse history: Crack, ETOH Previous psychiatric medications tried: wellbutrin Outpatient treatment: Yes PAST MEDICAL HISTORY: None reported Family Psychiatric History: None reported or documented SOCIAL HISTORY Current living status: alone Highest level of education: high school Marital status: Single Legal history: Denies History of abuse: Denies REVIEW OF SYSTEMS Constitutional: Negative for weight loss ENT: Negative for stridor Respiratory: Negative for cough or hemoptysis All other systems reviewed and are negative MENTAL STATUS EXAMINATION General Appearance: Dressed appropriately Behavior: Calm, cooperative. Polite. Conversational Mood: "okay" Affect: Congruent with stated mood Speech: Normal tone and pace Thought Process: Goal oriented Thought Content: Suicidal Ideation: Denies Homicidal Ideation: Denies Hallucinations: Denies Delusions: None elicited Insight and Judgment: Limited Memory/Cognition: Limited Assessment Drug Induced Mood Disorder Cocaine Use Disorder Plan MEDICATIONS: Welbutrin XL 150mg po qam Rissperidone 2m po daily Risks, benefits and alternatives of medications discussed with the patient, questions answered and consent obtained from patient. PSYCHOTHERAPY: Supportive psychotherapy provided MEDICAL: Per primary team DELIRIUM PRECAUTIONS: Please re-orient patient frequently, keep lights on during the day, and minimize benzodiazepines and opiates as these medications could worsen patient's confusion. MACHINE SPECIALIST: Per Medical team. DISPOSITION: The patient does not meet the requirement for acute inpatient psychiatric hospitalization at this time. He may discharge home once medically clear. The patient understands that if SI/HI, or any feelings of endangerment ar e to return he should seek immediate help including but not limited to the crisis hotline, 911 or/and ER. The patient is to abstain from all illicit drug use and alcohol. The furnace installer to further discuss safety plan with the patient and give the patient referrals for drug rehabilitation programs. The patient is to follow up with outpatient psychiatry or primary in 7 to 14 days upon discharge The treatment plan was explained to the patient. Her verbalizes understanding and agreement of plan. Will sign off. Thank you for the consult. Please contact with any questions or concerns. pt discharged with [facility] Critical care attestation.: If time is entered above; I have spent that time in minutes in the direct care of this critically ill patient, excluding procedure time. ED Disposition Time of Disposition: 15:31
[2020-05-21 23:56] LABS: Amphetamine Screen,Urine PRESUMPTIVE NEGATIVE; Benzodiazepines Screen,Urine PRESUMPTIVE NEGATIVE; Cannabinoid Screen,Urine PRESUMPTIVE NEGATIVE; Cocaine Screen,Urine PRESUMPTIVE POSITIVE; Methadone Screen,Urine PRESUMPTIVE NEGATIVE; Opiate Screen,Urine PRESUMPTIVE NEGATIVE
[2020-05-22 00:02] LABS: Bilirubin,Urine NEG (Negative); Blood,Urine SM (Negative); Color,Urine Yellow (Yellow); Mucus,Urine FEW /HPF; Protein,Urine <15 mg/dL mg/dL (Negative); Urobilinogen,Urine < 2.0 mg/dL (<2.0)
[2020-05-22] MEDS ORDERED: LORazepam 2 MG/ML VIAL IV PRN (02:23)
[2020-05-22] MEDS ORDERED: LORazepam 2 MG TAB PO PRN ×2 (02:23)
[2020-05-22 07:51] VITALS: BP 115/103
--- NOTE | 2020-05-22 10:38 | Consultation ---
History of Present Illness - Reason for Consult Consult date: 05/22/20 Reason for consult: SI - History of Present Psychiatric Illness Jorge Lucio is a 44y/o male patient who is known to me from previous visits. He is calm and cooperative. He is conversational. The patient is asking about medication for his back. He says he's having back pain. Mr. Lucio says he presented to the hospital after "drinking for 3 days." He says "my drinking leads to cocaine" and my son thought I should come. The patient initially denies SI/HI. He then says, "I need to stay about two days." Informed the patient there was no reason to keep him at this time. He then says, "well it comes and goes but I don't want to go to a facility. Just keep me here for a couple of days." A dvised the patient that this is an ER and we just don't house patients. The patient denies hallucinations of any kind. He denies any alcohol withdrawals. Discussed with the patient alcohol and cocaine cessation, and substance rehabilitation. PAST PSYCHIATRIC HISTORY: Diagnoses: Bipolar, and schizophrenia Suicide attempts or Self-harm behavior: Yes Prior psychiatric hospitalizations: Yes Substance Abuse history: Crack, ETOH Previous psychiatric medications tried: wellbutrin Outpatient treatment: Yes PAST MEDICAL HISTORY: None reported Family Psychiatric History: None reported or documented SOCIAL HISTORY Current living status: alone Highest level of education: high school Marital status: Single Legal history: Denies History of abuse: Denies REVIEW OF SYSTEMS Constitutional: Negative for weight loss ENT: Negative for stridor Respiratory: Negative for cough or hemoptysis All other systems reviewed and are negative MENTAL STATUS EXAMINATION General Appearance: Dressed appropriately Behavior: Calm, cooperative. Polite. Conversational Mood: "okay" Affect: Congruent with stated mood Speech: Normal tone and pace Thought Process: Goal oriented Thought Content: Suicidal Ideation: Denies Homicidal Ideation: Denies Hallucinations: Denies Delusions: None elicited Insight and Judgment: Limited Memory/Cognition: Limited Assessment Drug Induced Mood Disorder Cocaine Use Disorder Plan MEDICATIONS: Welbutrin XL 150mg po qam Rissperidone 2m po daily Risks, benefits and alternatives of medications discussed with the patient, questions answered and consent obtained from patient. PSYCHOTHERAPY: Supportive psychotherapy provided MEDICAL: Per primary team DELIRIUM PRECAUTIONS: Please re-orient patient frequently, keep lights on during the day, and minimize benzodiazepines and opiates as these medications could worsen patient's confusion. MONKEY TRAINER: Per Medical team. DISPOSITION: The patient does not meet the requirement for acute inpatient psychiatric hospitalization at this time. He may discharge home once medically clear. The patient understands that if SI/HI, or any feelings of endangerment are to return he should seek immediate help including but not limited to the crisis hotline, 911 or/and ER. The patient is to abstain from all illicit drug use and alcohol. The clerical warehouse worker to further discuss safety plan with the patient and give the patient referrals for drug rehabilitation programs. The patient is to follow up with outpatient psychiatry or primary in 7 to 14 days upon discharge The treatment plan was explained to the patient. Her verbalizes understanding and agreement of plan. Will sign off. Thank you for the consult. Please contact with any questions or concerns. Medications and Allergies Allergies Allergy/AdvReac Type Severity Reaction Status Date / Time haloperidol [From Haldol] Allergy Swelling Verified 11/08/19 17:38 Home Medications Medication Instructions Recorded Confirmed Last Taken Type Aspirin [Adult Aspirin] 81 mg PO DAILY 11/21/19 11/21/19 Unknown History Nitroglycerin 1 tab SL PRN 11/22/19 Unknown History buPROPion XL [Wellbutrin Xl] 150 mg PO QAM #30 tab.er.24h 05/22/20 Unknown Rx risperiDONE [RisperDAL] 2 mg PO DAILY #30 tablet 05/22/20 Unknown Rx Active Meds: Active Medications Lorazepam (Ativan) 4 mg IV Q15MIN PRN PRN Reason: CIWA-Ar >25 Lorazepam (Ativan) 4 mg PO Q1HR PRN PRN Reason: CIWA-Ar 16-25 Lorazepam (Ativan) 2 mg PO Q1HR PRN PRN Reason: CIWA-Ar 8-15 Mental Status Exam - Vital signs Last Vital Signs Temp 97.8 F 05/22/20 07:50 Pulse 92 H 05/22/20 07:50 Resp 18 05/22/20 07:50 BP 115/103 05/22/20 07:50 Pulse Ox 98 05/22/20 07:50 Results Result Diagrams: 05/21/20 22:21 05/21/20 22:21 Abnormal lab results 05/21/20 05/21/20 05/21/20 Range/Units 22:21 22:21 22:21 RBC (3.65-5.03) M/mm3 MCV (84-94) fl RDW (13.2-15.2) % [place] % (Auto) (0.0-7.3) % Creatinine 1.4 H (0.8-1.3) mg/dL Glucose 101 H (75-100) mg/dL Salicylates < 0.3 L (2.8-20.0) mg/dL Acetaminophen 5.0 L (10.0-30.0) ug/mL Plasma/Serum Alcohol (0-0.07) % 05/21/20 05/21/20 Range/Units 22:21 22:21 RBC 5.36 H (3.65-5.03) M/mm3 MCV 82 L (84-94) fl RDW 15.4 H (13.2-15.2) % [place] % (Auto) 9.6 H (0.0-7.3) % Creatinine (0.8-1.3) mg/dL Glucose (75-100) mg/dL Salicylates (2.8-20.0) mg/dL Acetaminophen (10.0-30.0) ug/mL Plasma/Serum Alcohol 0.08 H (0-0.07) % All other labs normal.
[2020-05-22] MEDS ORDERED: risperiDONE 1 MG TAB PO ONE (11:00)
[2020-05-22] MEDS ORDERED: buPROPion XL 150 MG TAB PO ONE (11:00)
== END 2020-05-22 15:55 ==
LOC: EEVIPCON 21:39 → ED 21:39
DX: F15.14 Other stimulant abuse with stimulant-induced mood disorder (principal); F14.10 Cocaine abuse, uncomplicated; F10.920 Alcohol use, unspecified with intoxication, uncomplicated; I10 Essential (primary) hypertension; J45.909 Unspecified asthma, uncomplicated; F20.89 Other schizophrenia; F31.9 Bipolar disorder, unspecified; F17.200 Nicotine dependence, unspecified, uncomplicated; Z88.8 Allergy status to other drugs, medicaments and biological substances
CPT/HCPCS: 36415; 80048; 80307; 80320; 81001; 85025; 99284; G0480

== ENCOUNTER 2020-05-24 19:44 | Emergency (ER) | payer SELFPAY ==
[2020-05-24 20:28] LABS: Basophils # (Auto) 0.2 K/mm3 (0.0-0.1); Basophils % (Auto) 2.4 % (0.0-1.8); Eosinophils # (Auto) 0.1 K/mm3 (0.0-0.4); Eosinophils % (Auto) 1.4 % (0.0-4.3); Hematocrit 44.2 % (35.5-45.6); Hemoglobin 14.8 gm/dl (11.8-15.2); Lymphocytes # (Auto) 1.9 K/mm3 (1.2-5.4); Lymphocytes % (Auto) 25.3 % (13.4-35.0); Mean Corpuscular HGB Conc 33 % (32-34); Mean Corpuscular Volume 82 fl (84-94); Monocytes # (Auto) 0.7 K/mm3 (0.0-0.8); Monocytes % (Auto) 9.7 % (0.0-7.3); Platelet Count 264 K/mm3 (140-440); Red Blood Count 5.36 M/mm3 (3.65-5.03); Red Cell Distribution Width 14.8 % (13.2-15.2)
[2020-05-24 20:50] LABS: BUN/Creatinine Ratio 13; Blood Urea Nitrogen 14 mg/dL (9-20); Calcium 9.2 mg/dL (8.4-10.2); Hemolysis Index 12
--- NOTE | 2020-05-24 21:01 | Emergency Department Report ---
HPI - General Chief Complaint: Psych Time Seen by Provider: 05/24/20 20:50 - HPI HPI: This is a 44-year-old male presents to the emergency department with a complaint of auditory and visual hallucinations and suicidal thoughts. The patient admits to drinking alcohol over the past 2 days and using cocaine. He says that he plans to hang himself. He has a history of schizophrenia, bipolar disorder and depression. The patient also has a medical history of hypertension, asthma, and coronary artery disease with [address] The patient was seen here on 05/21/2024 similar issues with suicidal thoughts and was discharged the next day after clearance by the psychiatric team. The patient says that he does not have any medication to treat his psychiatric conditions. Patient has the auditory hallucinations of "screaming" and visual hallucinations of "shadows", which the patient says is constant but has worsened. ED Past Medical Hx - Past Medical History Previous Medical History?: Yes Hx Hypertension: Yes Hx Heart Attack/AMI: Yes (05/2019) Hx Congestive Heart Failure: No Hx Diabetes: No Hx Psychiatric Treatment: Yes (schizophrenia, Bipolar, Depression) Hx Asthma: Yes Hx COPD: No - Surgical History Past Surgical History?: Yes Hx Coronary Stent: Yes (x2 stents) Additional Surgical History: stents x 2 - Social History Smoking Status: Never Smoker Substance Use Type: None - Medications Home Medications: Home Medications Medication Instructions Recorded Confirmed Last Taken Type Aspirin [Adult Aspirin] 81 mg PO DAILY 11/21/19 11/21/19 Unknown History Nitroglycerin 1 tab SL PRN 11/22/19 Unknown History buPROPion XL [Wellbutrin Xl] 150 mg PO QAM #30 tab.er.24h 05/22/20 Unknown Rx risperiDONE [RisperDAL] 2 mg PO DAILY #30 tablet 05/22/20 Unknown Rx ED Review of Systems ROS: Stated complaint: MH SEEING/HEARING THINGS Other details as noted in HPI Comment: All other systems reviewed and negative Constitutional: denies: chills, fever Respiratory: denies: shortness of breath Cardiovascular: denies: chest pain Gastrointestinal: denies: abdominal pain Musculoskeletal: denies: back pain Neurological: denies: headache, weakness Psychiatric: auditory hallucinations, visual hallucinations, suicidal thoughts Physical Exam - Physical Exam Vital Signs: Vital Signs 05/24/20 19:59 Temperature 97.9 F Pulse Rate 89 Respiratory 18 Rate Blood Pressure 153/88 O2 Sat by Pulse 96 Oximetry Physical Exam: GENERAL: The patient is well-developed well-nourished. HENT: Normocephalic. Atraumatic. Patient has moist mucous membranes. EYES: Extraocular motions are intact. NECK: Supple. Trachea is midline. CHEST/LUNGS: Clear to auscultation. There is no respiratory distress noted. HEART/CARDIOVASCULAR: Regular. There is no tachycardia. There is no murmur. ABDOMEN: Abdomen is soft, nontender. Patient has normal bowel sounds. SKIN: Skin is warm and dry. NEURO: The patient is awake, alert, and oriented. The patient is cooperative. Normal speech. MUSCULOSKELETAL: There is no tenderness or deformity. There is no limitation range of motion. ED Course Vital Signs 05/24/20 19:59 Temperature 97.9 F Pulse Rate 89 Respiratory 18 Rate Blood Pressure 153/88 O2 Sat by Pulse 96 Oximetry - Reevaluation(s) Reevaluation #1: 05/25/20 00:13 Lab Results 05/24/20 05/24/20 05/24/20 Range/Units 20:12 20:12 20:12 WBC (4.5-11.0) K/mm3 RBC (3.65-5.03) M/mm3 Hgb (11.8-15.2) gm/dl Hct (35.5-45.6) % MCV (84-94) fl MCH (28-32) pg MCHC (32-34) % RDW (13.2-15.2) % Plt Count (140-440) K/mm3 Lymph % (Auto) (13.4-35.0) % [place] % (Auto) (0.0-7.3) % Eos % (Auto) (0.0-4.3) % Baso % (Auto) (0.0-1.8) % Lymph # (Auto) (1.2-5.4) K/mm3 [place] # (Auto) (0.0-0.8) K/mm3 Eos # (Auto) (0.0-0.4) K/mm3 Baso # (Auto) (0.0-0.1) K/mm3 Seg Neutrophils % (40.0-70.0) % Seg Neutrophils # (1.8-7.7) K/mm3 Sodium 140 (137-145) mmol/L Potassium 4.1 (3.6-5.0) mmol/L Chloride 104.1 (98-107) mmol/L Carbon Dioxide 24 (22-30) mmol/L Anion Gap 16 mmol/L BUN 14 (9-20) mg/dL Creatinine 1.1 (0.8-1.3) mg/dL Estimated GFR > 60 ml/min BUN/Creatinine Ratio 13 % Glucose 85 (75-100) mg/dL Calcium 9.2 (8.4-10.2) mg/dL Salicylates < 0.3 L (2.8-20.0) mg/dL Acetaminophen 5.0 L (10.0-30.0) ug/mL Plasma/Serum Alcohol (0-0.07) % 05/24/20 05/24/20 Range/Units 20:12 20:12 WBC 7.4 (4.5-11.0) K/mm3 RBC 5.36 H (3.65-5.03) M/mm3 Hgb 14.8 (11.8-15.2) gm/dl Hct 44.2 (35.5-45.6) % MCV 82 L (84-94) fl MCH 28 (28-32) pg MCHC 33 (32-34) % RDW 14.8 (13.2-15.2) % Plt Count 264 (140-440) K/mm3 Lymph % (Auto) 25.3 (13.4-35.0) % [place] % (Auto) 9.7 H (0.0-7.3) % Eos % (Auto) 1.4 (0.0-4.3) % Baso % (Auto) 2.4 H (0.0-1.8) % Lymph # (Auto) 1.9 (1.2-5.4) K/mm3 [place] # (Auto) 0.7 (0.0-0.8) K/mm3 Eos # (Auto) 0.1 (0.0-0.4) K/mm3 Baso # (Auto) 0.2 H (0.0-0.1) K/mm3 Seg Neutrophils % 61.2 (40.0-70.0) % Seg Neutrophils # 4.5 (1.8-7.7) K/mm3 Sodium (137-145) mmol/L Potassium (3.6-5.0) mmol/L Chloride (98-107) mmol/L Carbon Dioxide (22-30) mmol/L Anion Gap mmol/L BUN (9-20) mg/dL Creatinine (0.8-1.3) mg/dL Estimated GFR ml/min BUN/Creatinine Ratio % Glucose (75-100) mg/dL Calcium (8.4-10.2) mg/dL Salicylates (2.8-20.0) mg/dL Acetaminophen (10.0-30.0) ug/mL Plasma/Serum Alcohol < 0.01 (0-0.07) % ED Medical Decision Making - Lab Data Result diagrams: 05/24/20 20:12 05/24/20 20:12 - Medical Decision Making This patient presents to the emergency department with complaint of suicidal ideations with a plan to hang himself. Through triage the patient also expressed some homicidal ideations that were more nonspecific. Patient admits to some recent alcohol and cocaine use. At the time of my examination the patient is calm and appropriate. However secondary to the suicidal and homicidal ideations, the patient has been made a 1013. His labs thus far have been unremarkable including CBC, metabolic panel, blood alcohol level. We are waiting for a urine sample for urinalysis and UDS. I suspect that the UDS will be positive for cocaine, and the patient does have a previous history of drug-in duced mood disorder. However, I do not believe that the UDS will change the plan for inpatient stabilization. Vital signs reassuring throughout his ED course thus far including being afebrile. This patient is medically cleared for psychiatric placement. Critical Care Time: No Critical care attestation.: If time is entered above; I have spent that time in minutes in the direct care of this critically ill patient, excluding procedure time. ED Disposition Clinical Impression: Suicidal ideations Schizophrenia Qualifiers: Schizophrenia type: unspecified Qualified Code(s): F20.9 - Schizophrenia, unspecified Disposition: DC/TX-65 PSY HOSP/PSY UNIT Is pt being admited?: No Condition: Stable Time of Disposition: 00:16
[2020-05-25 07:49] VITALS: BP 111/76
--- NOTE | 2020-05-25 11:39 | Consultation ---
History of Present Illness - Reason for Consult Consult date: 05/25/20 Reason for consult: SI, hallucinations - History of Present Psychiatric Illness Jorge Lucio is a 44y/o male patient who is known to me. This patient was evaluated and discharge a few days ago. The patient is calm, cooperative and conversational. He says he feels "alrigiht." He admits to using "cocaine and alcohol." He says, "when I'm out there I want to drink and do drugs." The patient says he never filled the scripts I gave him the other day. He says "I left here, and went to the mall and bought me an outfit." When advising the patient on the importance of medication compliance, he says "I thought yall were going to give me bottles of it the other day." I advised the patient that the hospital didn't give him bottles of medication, that's why he was given prescriptions. Mr. Lucio states that he came back "I wasn't given any meds before leaving the other day, not even the pills you said." He says "you told me I would get them before I left." The patient presently denies SI/HI or hallucinations of any kind. He also denies any alcohol withdrawal symptoms. PAST PSYCHIATRIC HISTORY: Diagnoses: Bipolar, and schizophrenia Suicide attempts or Self-harm behavior: Yes Prior psychiatric hospitalizations: Yes Substance Abuse history: Crack, ETOH Previous psychiatric medications tried: wellbutrin Outpatient treatment: Yes PAST MEDICAL HISTORY: None reported Family Psychiatric History: None reported or documented SOCIAL HISTORY Current living status: alone Highest level of education: high school Marital status: Single Legal history: Denies History of abuse: Denies REVIEW OF SYSTEMS Constitutional: Negative for weight loss ENT: Negative for stridor Respiratory: Negative for cough or hemoptysis All other systems reviewed and are negative MENTAL STATUS EXAMINATION General Appearance: Dressed appropriately Behavior: Calm, cooperative. Polite. Conversational Mood: "alright" Affect: Congruent with stated mood Speech: Normal tone and pace Thought Process: Goal oriented Thought Content: Suicidal Ideation: Denies Homicidal Ideation: Denies Hallucinations: Denies Delusions: None elicited Insight and Judgment: Limited Memory/Cognition: Limited Assessment Cocaine Use Disorder Noncompliance with Medical Regimen and other treatment Drug Induced Mood Disorder Plan d/c 1013 MEDICATIONS: Welbutrin XL 150mg po qam Risperidone 2m po daily Risks, benefits and alternatives of medications discussed with the patient, questions answered and consent obtained from patient. PSYCHOTHERAPY: Supportive psychotherapy provided MEDICAL: Per primary team DELIRIUM PRECAUTIONS: Please re-orient patient frequently, keep lights on during the day, and minimize benzodiazepines and opiates as these medications could worsen patient's confusion. CLINICAL SUPPORT ASSOCIATE: Per Medical team. DISPOSITION: The patient does not meet the requirement for acute inpatient psychiatric hospitalization at this time. He may discharge home once medically clear. The patient understands that if SI/HI, or any feelings of endangerment are to return he should seek immediate help including but not limited to the crisis hotline, 911 or/and ER. The patient is to abstain from all illicit drug use and alcohol. The liquid floor and wall applier to further discuss safety plan with the patient and give the patient referrals for drug rehabilitation programs. The patient is to follow up with outpatient psychiatry or primary in 7 to 14 days upon discharge The treatment plan was explained to the patient. Her verbalizes understanding and agreement of plan. Will sign off. Thank you for this consult. Please contact with any questions or concerns Medications and Allergies Allergies Allergy/AdvReac Type Severity Reaction Status Date / Time haloperidol [From Haldol] Allergy Swelling Verified 11/08/19 17:38 Home Medications Medication Instructions Recorded Confirmed Last Taken Type Aspirin [Adult Aspirin] 81 mg PO DAILY 11/21/19 11/21/19 Unknown History Nitroglycerin 1 tab SL PRN 11/22/19 Unknown History buPROPion XL [Wellbutrin Xl] 150 mg PO QAM #30 tab.er.24h 05/22/20 Unknown Rx risperiDONE [RisperDAL] 2 mg PO DAILY #30 tablet 05/22/20 Unknown Rx buPROPion XL [Wellbutrin Xl] 150 mg PO QAM #30 tab.er.24h 05/25/20 Unknown Rx risperiDONE [RisperDAL] 2 mg PO DAILY #30 tablet 05/25/20 Unknown Rx Mental Status Exam - Vital signs Last Vital Signs Temp 98.0 F 05/25/20 07:48 Pulse 75 05/25/20 07:48 Resp 18 05/25/20 07:48 BP 111/76 05/25/20 07:48 Pulse Ox 98 05/25/20 07:48 Results Result Diagrams: 05/24/20 20:12 05/24/20 20:12 Abnormal lab results 05/24/20 05/24/20 05/24/20 Range/Units 20:12 20:12 20:12 RBC 5.36 H (3.65-5.03) M/mm3 MCV 82 L (84-94) fl [place] % (Auto) 9.7 H (0.0-7.3) % Baso % (Auto) 2.4 H (0.0-1.8) % Baso # (Auto) 0.2 H (0.0-0.1) K/mm3 Salicylates < 0.3 L (2.8-20.0) mg/dL Acetaminophen 5.0 L (10.0-30.0) ug/mL All other labs normal.
[2020-05-25] MEDS ORDERED: risperiDONE 1 MG TAB PO SCH (12:00)
[2020-05-25] MEDS ORDERED: buPROPion XL 150 MG TAB PO SCH (12:00)
== END 2020-05-25 14:04 ==
LOC: ED 19:44
DX: F20.89 Other schizophrenia (principal); F31.9 Bipolar disorder, unspecified; I10 Essential (primary) hypertension; I25.2 Old myocardial infarction
CPT/HCPCS: 36415; 80048; 80320; 85025; G0480

== ENCOUNTER 2020-12-30 00:40 | Emergency (ER) | payer OTHER, SELFPAY ==
[2020-12-30 01:42] LABS: Basophils # (Auto) 0.1 K/mm3 (0.0-0.1); Basophils % (Auto) 1.1 % (0.0-1.8); Eosinophils # (Auto) 0.1 K/mm3 (0.0-0.4); Eosinophils % (Auto) 1.6 % (0.0-4.3); Hematocrit 42.7 % (35.5-45.6); Hemoglobin 14.4 gm/dl (11.8-15.2); Lymphocytes # (Auto) 2.3 K/mm3 (1.2-5.4); Lymphocytes % (Auto) 28.3 % (13.4-35.0); Mean Corpuscular HGB Conc 34 % (32-34); Mean Corpuscular Volume 83 fl (84-94); Monocytes # (Auto) 0.8 K/mm3 (0.0-0.8); Platelet Count 254 K/mm3 (140-440); Red Blood Count 5.14 M/mm3 (3.65-5.03)
[2020-12-30 02:02] LABS: BUN/Creatinine Ratio 15; Blood Urea Nitrogen 20 mg/dL (9-20); Hemolysis Index 12
--- NOTE | 2020-12-30 08:01 | Emergency Department Report ---
HPI - General Chief Complaint: Psych Time Seen by Provider: 12/30/20 07:43 - HPI HPI: 45-year-old male with history of schizophrenia and bipolar disorder presents complaining of new onset visual and auditory hallucinations. Patient states that yesterday evening he smoked hookah with friends and afterwards he "started tripping." He says he was seeing dragons and other kinds of [place] creatures and hearing very loud voices. He states that although he told triage he had suicidal ideation he does not have suicidal ideation. He states that that was associated with his state after smoking hookah. In triage is also noted that he reported he has been off his meds for 3 weeks when asked about this he says that he has not been taking his meds consistently for the last 3 weeks and that his medications are at the pharmacy waiting to be picked up. At this time he reports that he no longer has any visual or auditory hallucinations nor does he have SI/HI. He also denies any physical symptoms or complaints. ED Past Medical Hx - Past Medical History Previous Medical History?: Yes Hx Hypertension: Yes Hx Heart Attack/AMI: Yes (05/2019) Hx Congestive Heart Failure: No Hx Diabetes: No Hx Psychiatric Treatment: Yes (schizophrenia, Bipolar, Depression) Hx Asthma: Yes Hx COPD: No - Surgical History Past Surgical History?: Yes Hx Coronary Stent: Yes (x2 stents) Additional Surgical History: stents x 2 - Social History Smoking Status: Current Every Day Smoker Substance Use Type: Alcohol - Medications Home Medications: Home Medications Medication Instructions Recorded Confirmed Last Taken Type Aspirin [Adult Aspirin] 81 mg PO DAILY 11/21/19 11/21/19 Unknown History Nitroglycerin 1 tab SL PRN 11/22/19 Unknown History buPROPion XL [Wellbutrin Xl] 150 mg PO QAM #30 tab.er.24h 05/25/20 Unknown Rx risperiDONE [RisperDAL] 2 mg PO DAILY #30 tablet 05/25/20 Unknown Rx buPROPion XL [Wellbutrin Xl] 150 mg PO QAM #30 tab.er.24h 12/30/20 Unknown Rx risperiDONE [RisperDAL] 2 mg PO DAILY #30 tablet 12/30/20 Unknown Rx ED Review of Systems ROS: Stated complaint: SUICIDAL/HALLUCINATIONS Other details as noted in HPI Constitutional: denies: chills, fever Eyes: denies: eye pain, vision change ENT: denies: throat pain, congestion Respiratory: denies: cough, shortness of breath Cardiovascular: denies: chest pain, palpitations Gastrointestinal: denies: abdominal pain, nausea, vomiting Musculoskeletal: denies: back pain, myalgia Skin: denies: rash Neurological: denies: headache, weakness, numbness Psychiatric: auditory hallucinations (initially, later denies), visual hallucinations (initially, later denied), suicidal thoughts (initially, later denies) Physical Exam - Physical Exam Vital Signs: Vital Signs 12/30/20 00:58 Temperature 97.8 F Pulse Rate 90 Respiratory 16 Rate Blood Pressure 172/99 O2 Sat by Pulse 98 Oximetry Physical Exam: GENERAL: Well developed and well nourished. No acute distress HEENT: Normocephalic. No obvious signs of trauma. Moist mucous membranes. EYES: Extraocular movements are intact. Pupils are equal round and reactive to light bilaterally NECK: Supple. Trachea is midline. LUNGS: Nonlabored breathing. Equal chest rise bilaterally. Clear to auscultation bilaterally. HEART/CARDIOVASCULAR: Regular rate and rhythm. No murmurs or rubs. ABDOMEN: Abdomen is soft and nondistended. There is no significant tenderness, guarding or rebound. SKIN: Skin is warm and dry NEURO: Patient is awake, alert, and oriented. character impersonator II-XII grossly intact. No focal deficits. Normal motor and sensory exam throughout. Normal speech. Normal gait. MUSCULOSKELETAL: No obvious deformities. No significant tenderness. Normal ROM throughout. . ED Course Vital Signs 12/30/20 00:58 Temperature 97.8 F Pulse Rate 90 Respiratory 16 Rate Blood Pressure 172/99 O2 Sat by Pulse 98 Oximetry ED Medical Decision Making - Lab Data Result diagrams: 12/30/20 01:29 12/30/20 01:29 Lab Results 12/30/20 12/30/20 12/30/20 Range/Units 01:29 01:29 01:29 WBC (4.5-11.0) K/mm3 RBC (3.65-5.03) M/mm3 Hgb (11.8-15.2) gm/dl Hct (35.5-45.6) % MCV (84-94) fl MCH (28-32) pg MCHC (32-34) % RDW (13.2-15.2) % Plt Count (140-440) K/mm3 Lymph % (Auto) (13.4-35.0) % [place] % (Auto) (0.0-7.3) % Eos % (Auto) (0.0-4.3) % Baso % (Auto) (0.0-1.8) % Lymph # (Auto) (1.2-5.4) K/mm3 [place] # (Auto) (0.0-0.8) K/mm3 Eos # (Auto) (0.0-0.4) K/mm3 Baso # (Auto) (0.0-0.1) K/mm3 Seg Neutrophils % (40.0-70.0) % Seg Neutrophils # (1.8-7.7) K/mm3 Sodium 139 (137-145) mmol/L Potassium 3.6 (3.6-5.0) mmol/L Chloride 101.9 (98-107) mmol/L Carbon Dioxide 26 (22-30) mmol/L Anion Gap 15 mmol/L BUN 20 (9-20) mg/dL Creatinine 1.3 (0.8-1.3) mg/dL Estimated GFR > 60 ml/min BUN/Creatinine Ratio 15 % Glucose 124 H (75-100) mg/dL Calcium 9.0 (8.4-10.2) mg/dL Salicylates < 0.3 L (2.8-20.0) mg/dL Acetaminophen 5.0 L (10.0-30.0) ug/mL Plasma/Serum Alcohol (0-0.07) % 12/30/20 12/30/20 Range/Units 01:29 01:29 WBC 8.0 (4.5-11.0) K/mm3 RBC 5.14 H (3.65-5.03) M/mm3 Hgb 14.4 (11.8-15.2) gm/dl Hct 42.7 (35.5-45.6) % MCV 83 L (84-94) fl MCH 28 (28-32) pg MCHC 34 (32-34) % RDW 15.0 (13.2-15.2) % Plt Count 254 (140-440) K/mm3 Lymph % (Auto) 28.3 (13.4-35.0) % [place] % (Auto) 10.0 H (0.0-7.3) % Eos % (Auto) 1.6 (0.0-4.3) % Baso % (Auto) 1.1 (0.0-1.8) % Lymph # (Auto) 2.3 (1.2-5.4) K/mm3 [place] # (Auto) 0.8 (0.0-0.8) K/mm3 Eos # (Auto) 0.1 (0.0-0.4) K/mm3 Baso # (Auto) 0.1 (0.0-0.1) K/mm3 Seg Neutrophils % 59.0 (40.0-70.0) % Seg Neutrophils # 4.7 (1.8-7.7) K/mm3 Sodium (137-145) mmol/L Potassium (3.6-5.0) mmol/L Chloride (98-107) mmol/L Carbon Dioxide (22-30) mmol/L Anion Gap mmol/L BUN (9-20) mg/dL Creatinine (0.8-1.3) mg/dL Estimated GFR ml/min BUN/Creatinine Ratio % Glucose (75-100) mg/dL Calcium (8.4-10.2) mg/dL Salicylates (2.8-20.0) mg/dL Acetaminophen (10.0-30.0) ug/mL Plasma/Serum Alcohol < 0.01 (0-0.07) % - Medical Decision Making 45-year-old male who initially presented with symptoms of visual and auditory hallucinations as well as SI. Patient reported in triage that he has not been taking his medicines for 3 weeks. He is unable to explain why. He says his m edications are filled in at the pharmacy ready for pickup. He says that his symptoms were because he smoked hookah with friends last night. During my interview with the patient he denies SI and states that the visual and auditory hallucinations he was experiencing were transient and have gone away completely. Nevertheless, given the history that the patient has been off meds for 3 weeks with history of schizophrenia bipolar disorder and with report of auditory visual hallucinations we will send full medical clearance labs and have the patient seen by the mental health zone manager for further recommendations regarding disposition. Labs have resulted and reveal no significant abnormalities. The patient is medically cleared for psychiatric assessment and treatment or placement if deemed necessary. The patient was seen by the mental health zone manager, Caroline, who recommended discharging the patient given that he does not represent a threat. I spoke personally spoke with Caroline who is says that he discussed this with the psychiatrist and will add that to his note. Critical care attestation.: If time is entered above; I have spent that time in minutes in the direct care of this critically ill patient, excluding procedure time. ED Disposition Clinical Impression: Auditory hallucinations, Visual hallucinations Disposition: DC-01 TO HOME OR SELFCARE Is pt being admited?: No Condition: Stable Additional Instructions: Professional and Agency Contacts To help Resolve Crises(06/02) ID Crisis Line: Suicide Prevention Line: Crisis Text Line: Text START to 626688 Emergency: 911 Outpatient COMMUNITY Behavioral Health Resources: [facility]: [facility] [address] [place], [place] [address] [facility] [address] [place] [address] [facility] - [address] [place] [id number] Monday thru Monday - 8am - 5pm [facility] Address: [address] [place] [address] [facility]: [facility] Address: [address] [place] [address] Monday thru Monday- 7am-2pm [facility] Address: [address] [place] [address] Monday thru Monday: 8:30AM-5PM Prescriptions: risperiDONE [RisperDAL] 2 mg PO DAILY #30 tablet buPROPion XL [Wellbutrin Xl] 150 mg PO QAM #30 tab.er.24h Referrals: PRIMARY CARE, [Primary Care Provider] - 3-5 Days
[2020-12-30 08:02] VITALS: BP 159/100
--- NOTE | 2020-12-30 10:25 | Consultation ---
History of Present Illness - Reason for Consult Consult date: 12/30/20 Reason for consult: MHE Requesting physician: JOVANI KIMBALL - History of Present Psychiatric Illness Per ED Provider: 45-year-old male with history of schizophrenia and bipolar disorder presents complaining of new onset visual and auditory hallucinations. Patient states that yesterday evening he smoked hookah with friends and afterwards he "started tripping." He says he was seeing dragons and other kinds of [place] creatures and hearing very loud voices. He states that although he told triage he had suicidal ideation he does not have suicidal ideation. He states that that was associated with his state after smoking hookah. In triage is also noted that he reported he has been off his meds for 3 weeks when asked about this he says that he has not been taking his meds consistently for the last 3 weeks and that his medications are at the pharmacy waiting to be picked up. At this time he reports that he no longer has any visual or auditory hallucinations nor does he have SI/HI. He also denies any physical symptoms or complaints. HPI Patient is a 45-year-old unemployed -Indian male with past psychiatric history of paranoid schizophrenia, depression and illicit drug use with past medical history of hypertension, CAD and gout who presents to the ED for mental health evaluation. Per patient, patient reported smokin hookah yesterday and he began hallucinating, seeing colors in his visions. He says his symptoms now resolved. Denies SI, HI or AVH. Patient endorses that he is supposed to be on medications but he does not have any prescription to fill. PAST PSYCHIATRIC HISTORY: Diagnoses: Paranoid schizophrenia, depression Suicide attempts or Self-harm behavior: Yes tried jumping in front of moving vehicle and cut self Prior psychiatric hospitalizations: Yes Substance Abuse history: Cocaine Previous psychiatric medications tried: Abilify, and Wellbutrin Outpatient treatment: Yes, at [facility] PAST MEDICAL HISTORY: HTN, CAD and GOUT Family Psychiatric History None reported or documented SOCIAL HISTORY Marital Status: Single Living Arrangements: With GF Employment Status: Unemployed Access to guns/weapons: None reported Education: GED History of Abuse: None reported Legal History: None REVIEW OF SYSTEMS Constitutional: Negative for weight loss ENT: Negative for stridor Respiratory: Negative for cough or hemoptysis All other systems reviewed and are negative MENTAL STATUS EXAMINATION General Appearance and Behavior: Age appropriate, good hygiene, wearing appropriate clothes, lying in bed, goodeye contact, cooperative with questioning and polite Cooperation: Participating/engaged Psychomotor Behavior: unremarkable and within normal limits Mood: slightly better Affect and affective range: anxious euthymic, irritable Thought Process: Fluent/Logical Thought Content: visual hallu Speech: Normal volume, Regular rate and rhythm Intellectual Functioning: Average Suicidal Ideation:Suicidal Homicidal Ideation: Denies HI Impulse Control: Unimpaired Insight and Judgment: Normal insight and judgment Attention: Normal Orientation: Alert, oriented, anxious Assessment and Plan - Psychiatric problem (2) Substance induced mood disorder Current Visit: Yes Status: Acute RECOMMENDATIONS MEDICATIONS: Restarted home meds Risks, benefits and alternatives of medications discussed with the patient, questions answered and consent obtained from patient. PSYCHOTHERAPY: Supportive psychotherapy provided MEDICAL: Per primary team DELIRIUM PRECAUTIONS: Please re-orient patient frequently, keep lights on during the day, and minimize benzodiazepines and opiates as these medications could worsen patient's confusion. 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 Please contact with any questions and/or concerns.P er ED Medications and Allergies Allergies Allergy/AdvReac Type Severity Reaction Status Date / Time haloperidol [From Haldol] Allergy Swelling Verified 11/08/19 17:38 Home Medications Medication Instructions Recorded Confirmed Last Taken Type Aspirin [Adult Aspirin] 81 mg PO DAILY 11/21/19 11/21/19 Unknown History Nitroglycerin 1 tab SL PRN 11/22/19 Unknown History buPROPion XL [Wellbutrin Xl] 150 mg PO QAM #30 tab.er.24h 05/22/20 Unknown Rx risperiDONE [RisperDAL] 2 mg PO DAILY #30 tablet 05/22/20 Unknown Rx buPROPion XL [Wellbutrin Xl] 150 mg PO QAM #30 tab.er.24h 05/25/20 Unknown Rx risperiDONE [RisperDAL] 2 mg PO DAILY #30 tablet 05/25/20 Unknown Rx Mental Status Exam - Vital signs Last Vital Signs Temp 98.9 F 12/30/20 07:59 Pulse 99 H 12/30/20 07:59 Resp 20 12/30/20 07:59 BP 159/100 12/30/20 07:59 Pulse Ox 99 12/30/20 07:59 Results Result Diagrams: 12/30/20 01:29 12/30/20 01:29 Abnormal lab results 12/30/20 12/30/20 12/30/20 Range/Units 01:29 01:29 01:29 RBC (3.65-5.03) M/mm3 MCV (84-94) fl Edgar % (Auto) (0.0-7.3) % Glucose 124 H (75-100) mg/dL Salicylates < 0.3 L (2.8-20.0) mg/dL Acetaminophen 5.0 L (10.0-30.0) ug/mL 12/30/20 Range/Units 01:29 RBC 5.14 H (3.65-5.03) M/mm3 MCV 83 L (84-94) fl Edgar % (Auto) 10.0 H (0.0-7.3) % Glucose (75-100) mg/dL Salicylates (2.8-20.0) mg/dL Acetaminophen (10.0-30.0) ug/mL All other labs normal.
== END 2020-12-30 11:58 | disposition home or self-care (01) ==
LOC: ED 00:40
DX: R44.1 Visual hallucinations (principal); R44.0 Auditory hallucinations; Z20.822 Contact with and (suspected) exposure to COVID-19; F31.9 Bipolar disorder, unspecified; I10 Essential (primary) hypertension; J45.909 Unspecified asthma, uncomplicated; F17.200 Nicotine dependence, unspecified, uncomplicated; Z72.89 Other problems related to lifestyle
CPT/HCPCS: 36415; 80048; 85025; 99284; U0003; 80320; G0480

== ENCOUNTER 2021-01-07 00:10 | Emergency (ER) | payer SELFPAY ==
[2021-01-07 04:15] VITALS: BP 160/101
--- NOTE | 2021-01-07 04:17 | Emergency Department Report ---
ED General Adult HPI - General Chief complaint: Psych Stated complaint: HEARING VOICES/SEEING THINGS/DRUG USE PUI?: No Time Seen by Provider: 01/07/21 03:52 Source: patient, RN notes reviewed, old records reviewed Mode of arrival: Ambulatory Limitations: No Limitations - History of Present Illness Initial comments: This is a 45-year-old gentleman. I have evaluated him in the past. Past medical history includes cocaine use, polysubstance use, hypertension, obesity, with a BMI of 39. This patient had a cardiac catheterization at this hospital September 2018. At that time, there was no evidence of significant epicardial coronary disease. He was not found to have evidence of dissection, aortic ulcer. He was found to have an ejection fraction of 60 to 65%, with no evidence of aortic stenosis. He also had an echocardiogram which demonstrated an EF of 55 to 60%. Past history also includes hypertension, noncompliance, hemoconcentration, gout, polysubstance abuse. Today, the patient presents to the ER with a complaint of nonspecific perceptions after recreational ingestion of drugs for a friend's birthday. Apparently, he took 1 Roxicodone, 2 Percocet, 1 ecstasy, and 2 other tablets, at 7:00 PM on January 06. The patient states this is for recreational reasons. He reports that he feels "a little funny", but denies headache, neck pain, chest pain, abdominal pain. Patient is not having homicidality suicidality. The patient has chronic shortness of breath which is not really new, worse or different today. He denies travel, surgery, leg pain, immobilization, DVT and pulmonary embolism risk factors. He does not have sleep apnea that he is aware of. He is asking to eat and drink water at this time. -: Gradual, Sudden, This evening Severity scale (0 -10): 0 Improves with: none Worsens with: none Associated Symptoms: denies other symptoms - Related Data Home Medications Medication Instructions Recorded Confirmed Last Taken Aspirin [Adult Aspirin] 81 mg PO DAILY 11/21/19 11/21/19 Unknown Nitroglycerin 1 tab SL PRN 11/22/19 Unknown Previous Rx's Medication Instructions Recorded Last Taken Type buPROPion XL [Wellbutrin Xl] 150 mg PO QAM #30 tab.er.24h 12/30/20 Unknown Rx risperiDONE [RisperDAL] 2 mg PO DAILY #30 tablet 12/30/20 Unknown Rx Aspirin 325 mg PO QDAY #30 tablet 01/07/21 Unknown Rx amLODIPine 10 mg PO DAILY #30 tab 01/07/21 Unknown Rx lisinopriL [Lisinopril] 10 mg PO QDAY #30 tablet 01/07/21 Unknown Rx Allergies Allergy/AdvReac Type Severity Reaction Status Date / Time haloperidol [From Haldol] Allergy Swelling Verified 11/08/19 17:38 ED Review of Systems ROS: Stated complaint: HEARING VOICES/SEEING THINGS/DRUG USE Other details as noted in HPI Comment: All other systems reviewed and negative Respiratory: shortness of breath Cardiovascular: denies: chest pain, edema Gastrointestinal: denies: abdominal pain Genitourinary: denies: dysuria Psychiatric: denies: homicidal thoughts, suicidal thoughts ED Past Medical Hx - Past Medical History Previous Medical History?: Yes Hx Hypertension: Yes Hx Heart Attack/AMI: Yes (05/2019) Hx Congestive Heart Failure: No Hx Diabetes: No Hx Psychiatric Treatment: Yes (schizophrenia, Bipolar, Depression) Hx Asthma: Yes Hx COPD: No - Surgical History Hx Coronary Stent: Yes (x2 stents) Additional Surgical History: stents x 2 - Social History Smoking Status: Unknown if ever smoked - Medications Home Medications: Home Medications Medication Instructions Recorded Confirmed Last Taken Type Aspirin [Adult Aspirin] 81 mg PO DAILY 11/21/19 11/21/19 Unknown History Nitroglycerin 1 tab SL PRN 11/22/19 Unknown History buPROPion XL [Wellbutrin Xl] 150 mg PO QAM #30 tab.er.24h 12/30/20 01/07/21 Unknown Rx risperiDONE [RisperDAL] 2 mg PO DAILY #30 tablet 12/30/20 01/07/21 Unknown Rx Aspirin 325 mg PO QDAY #30 tablet 01/07/21 Unknown Rx amLODIPine 10 mg PO DAILY #30 tab 01/07/21 Unknown Rx lisinopriL [Lisinopril] 10 mg PO QDAY #30 tablet 01/07/21 Unknown Rx ED Physical Exam - General Limitations: No Limitations General appearance: alert, anxious, obese - Head Head exam: Present: atraumatic, normocephalic - Eye Eye exam: Present: normal appearance, EOMI. Absent: nystagmus - ENT ENT exam: Present: normal exam, normal orophraynx, mucous membranes moist, normal external ear exam - Neck Neck exam: Present: normal inspection, full ROM. Absent: tenderness, meningismus - Respiratory Respiratory exam: Present: normal lung sounds bilaterally. Absent: respiratory distress, wheezes, rales, rhonchi, stridor, decreased breath sounds - Cardiovascular Cardiovascular Exam: Present: regular rate, normal rhythm, normal heart sounds. Absent: bradycardia, tachycardia, irregular rhythm, systolic murmur, diastolic murmur, rubs, gallop - GI/Abdominal GI/Abdominal exam: Present: soft. Absent: distended, tenderness, guarding, halley ound, rigid, pulsatile mass - Rectal Rectal exam: Present: deferred - Extremities Exam Extremities exam: Present: normal inspection, full ROM, pedal edema (1+ edema in the bilateral lower extremities), other (2+ pulses noted in the bilateral upper and lower extremities. There is no palpable cord. negative Homans sign. Muscular compartments are soft. The pelvis is stable.). Absent: calf tenderness - Back Exam Back exam: Present: normal inspection, full ROM. Absent: tenderness, CVA tenderness (R), CVA tenderness (L), paraspinal tenderness, vertebral tenderness - Neurological Exam Neurological exam: Present: alert, oriented X3, normal gait, other (No facial droop. Tongue midline. Extraocular movements intact bilaterally. Facial sensation intact to light touch in V1, V2, V3 distribution bilaterally. 5 and a 5 strength in 4 extremities. Sensation intact to light touch in 4 extremities.). Absent: motor sensory deficit - Psychiatric Psychiatric exam: Present: anxious. Absent: homicidal ideation, suicidal ideation - Skin Skin exam: Present: warm, dry, intact, normal color. Absent: rash ED Course Vital Signs 01/07/21 04:03 Temperature 97.7 F Pulse Rate 78 Respiratory 20 Rate Blood Pressure 160/101 [Right] O2 Sat by Pulse 97 Oximetry - Reevaluation(s) Reevaluation #1: 01/07/21 04:41 Differential diagnosis, including but not limited to: Recreational drug use, dependent edema, electrolyte derangement, obstructive sleep apnea, pulmonary congestion Assessment and plan: 45-year-old gentleman, who is afebrile, with reassuring vital signs, who is not currently tachycardic, tachypneic or hypoxic, who denies DVT and pulmonary embolism risk factors, PERC negative, low risk by Wells criteria for pulmonary embolism, who had a cardiac catheterization in 2019 which was negative for ischemic heart disease, who is not currently homicidal or suicidal, clinically sober, walking with a steady gait, who does not meet criteria for 1013 hold or involuntary hold. Issue 1, recreational drug ingestion. Counseled patient to discontinue rec reational drugs. He has been counseled in the past to discontinue recreational drugs. Check serum toxicology level. Issue #2, shortness of breath, which is chronic, and he states slightly worse. Chest x-ray clear. EKG unchanged. Had echo and cardiac catheterization in 2019. DVT, PE unlikely. May have a component of undiagnosed obstructive sleep apnea. Obtain appropriate laboratory studies, awaiting formal x-ray chest interpretation. If no acute findings noted, resume antihypertensive therapy, follow-up with outpatient primary care and/or cardiology, weight loss, abstinence from recreational drugs, outpatient sleep study. 01/07/21 06:03 Laboratory studies unremarkable. X-ray unremarkable. Patient resting comfortably, and in no acute distress. Nursing team endorses that patient appears to be very comfortable and I agree with this. The patient is suitable for discharge at this point in time, we have refilled his lisinopril, Norvasc, provided aspirin prescription, and have instructed him to follow-up with outpatient primary care, pulmonology, and cardiology. ED Medical Decision Making - Lab Data Result diagrams: 01/07/21 04:41 01/07/21 04:41 Vital Signs 01/07/21 04:03 Temperature 97.7 F Pulse Rate 78 Respiratory 20 Rate Blood Pressure 160/101 [Right] O2 Sat by Pulse 97 Oximetry Lab Results 01/07/21 01/07/21 Range/Units Unknown Unknown Urine Color Yellow (Yellow) Urine Turbidity Clear (Clear) Urine pH 5.0 (5.0-7.0) Ur Specific [place] 1.035 H (1.003-1.030) Urine Protein 30 mg/dl (Negative) mg/dL Urine Glucose (UA) Negative (Negative) mg/dL Urine Ketones Negative (Negative) mg/dL Urine Blood Negative (Negative) Urine Nitrite Negative (Negative) Ur Reducing Substances Not Reportable Urine Ictotest Not Reportable Urine Urobilinogen < 2.0 (<2.0) mg/dL Ur Leukocyte Esterase Negative (Negative) Urine WBC (Auto) 1.0 (0.0-6.0) /HPF Urine RBC (Auto) 2.0 (0.0-6.0) /HPF U Epithel Cells (Auto) < 1.0 (0-13.0) /HPF Urine Mucus Few /HPF Urine Opiates Screen Presumptive negative Urine Methadone Screen Presumptive negative Ur Barbiturates Screen Presumptive negative Ur Phencyclidine Scrn Presumptive negative Ur Amphetamines Screen Presumptive negative U Benzodiazepines Scrn Presumptive negative Urine Cocaine Screen Presumptive negative U Marijuana (THC) Screen Presumptive negative Vital Signs 01/07/21 04:03 Temperature 97.7 F Pulse Rate 78 Respiratory 20 Rate Blood Pressure 160/101 [Right] O2 Sat by Pulse 97 Oximetry Labs 01/07/21 01/07/21 01/07/21 04:41 04:41 04:41 Hgb Hct Plt Count Sodium 140 Potassium 4.4 Chloride 103.9 Carbon Dioxide 23 Anion Gap 18 BUN 19 Creatinine 0.9 Estimated GFR > 60 BUN/Creatinine Ratio 21 Glucose 101 H Calcium 8.8 Magnesium Total Creatine Kinase NT-Pro-B Natriuret Pep Urine Color Urine Turbidity Urine pH Ur Specific [place] Urine Protein Urine Glucose (UA) Urine Ketones Urine Blood Urine Nitrite Ur Reducing Substances Urine Ictotest Urine Urobilinogen Ur Leukocyte Esterase Urine WBC (Auto) Urine RBC (Auto) U Epithel Cells (Auto) Urine Mucus Salicylates < 0.3 L Urine Opiates Screen Urine Methadone Screen Acetaminophen < 5.0 L Ur Barbiturates Screen Ur Phencyclidine Scrn Ur Amphetamines Screen U Benzodiazepines Scrn Urine Cocaine Screen U Marijuana (THC) Screen Drugs of Abuse Note Plasma/Serum Alcohol 01/07/21 01/07/21 01/07/21 04:41 04:41 04:41 Hgb 14.4 Hct 44.5 Plt Count 215 Sodium Potassium Chloride Carbon Dioxide Anion Gap BUN Creatinine Estimated GFR BUN/Creatinine Ratio Glucose Calcium Magnesium 2.20 Total Creatine Kinase 261 H NT-Pro-B Natriuret Pep < 5 Urine Color Urine Turbidity Urine pH Ur Specific [place] Urine Protein Urine Glucose (UA) Urine Ketones Urine Blood Urine Nitrite Ur Reducing Substances Urine Ictotest Urine Urobilinogen Ur Leukocyte Esterase Urine WBC (Auto) Urine RBC (Auto) U Epithel Cells (Auto) Urine Mucus Salicylates Urine Opiates Screen Urine Methadone Screen Acetaminophen Ur Barbiturates Screen Ur Phencyclidine Scrn Ur Amphetamines Screen U Benzodiazepines Scrn Urine Cocaine Screen U Marijuana (THC) Screen Drugs of Abuse Note Plasma/Serum Alcohol < 0.01 01/07/21 01/07/21 Unknown Unknown Hgb Hct Plt Count Sodium Potassium Chloride Carbon Dioxide Anion Gap BUN Creatinine Estimated GFR BUN/Creatinine Ratio Glucose Calcium Magnesium Total Creatine Kinase NT-Pro-B Natriuret Pep Urine Color Yellow Urine Turbidity Clear Urine pH 5.0 Ur Specific [place] 1.035 H Urine Protein 30 mg/dl Urine Glucose (UA) Negative Urine Ketones Negative Urine Blood Negative Urine Nitrite Negative Ur Reducing Substances Not Reportable Urine Ictotest Not Reportable Urine Urobilinogen < 2.0 Ur Leukocyte Esterase Negative Urine WBC (Auto) 1.0 Urine RBC (Auto) 2.0 U Epithel Cells (Auto) < 1.0 Urine Mucus Few Salicylates Urine Opiates Screen Presumptive negative Urine Methadone Screen Presumptive negative Acetaminophen Ur Barbiturates Screen Presumptive negative Ur Phencyclidine Scrn Presumptive negative Ur Amphetamines Screen Presumptive negative U Benzodiazepines Scrn Presumptive negative Urine Cocaine Screen Presumptive negative U Marijuana (THC) Screen Presumptive negative Drugs of Abuse Note Disclamer Plasma/Serum Alcohol - EKG Data -: EKG Interpreted by [place] EKG shows normal: sinus rhythm Rate: normal - EKG Data 01/07/21 04:39 EKG interpreted at 04: 22 Sinus rhythm, 76 bpm. Normal axis, normal intervals. T wave inversions V4, V5 and V6. T wave inversions 3 and aVF. This is an abnormal EKG. This is not a STEMI. Appears grossly unchanged when compared to prior EKG from October 2019 01/07/21 04:41 - Radiology Data Radiology results: pending, report reviewed, image reviewed [facility] [address] [place] [address] XRay Report Signed Patient: ZANDER BORREGO MR#: [id number] : 1 08/05/1974 Acct:[id number] Age/Sex: 45 / M ADM Date: 01/07/21 Loc: ED Attending Dr: Ordering Physician: ZION SNOWDEN MD Date of Service: 01/07/21 Procedure(s): XR chest routine 2V Accession Number(s): [id number] cc: ZION SNOWDEN MD Fluoro Time In Minutes: CHEST 2 VIEWS INDICATION / CLINICAL INFORMATION: dyspnea. COMPARISON: None available. FINDINGS: SUPPORT DEVICES: None. HEART / MEDIASTINUM: No significant abnormality. LUNGS / PLEURA: No significant pulmonary or pleural abnormality. No pneumothorax. ADDITIONAL FINDINGS: No significant additional findings. IMPRESSION: 1. No acute findings. Signer Name: Michael Ramesh MD Signed: 01/07/2021 4:48 AM Workstation Name: [id number] Transcribed By: TE Dictated By: RAEGAN RAMESH MD Electronically Authenticated By: RAEGAN RAMESH MD Signed Date/Time: 01/07/21447 DD/ 7 Critical care attestation.: If time is entered above; I have spent that time in minutes in the direct care of this critically ill patient, excluding procedure time. ED Disposition Clinical Impression: Hypertension, BMI 39.0-39.9,adult, Polysubstance abuse, Chronic dyspnea, Swelling of lower extremity Disposition: DC-01 TO HOME OR SELFCARE Is pt being admited?: No Does the pt Need Aspirin: No Condition: Good Instructions: Shortness of Breath, Adult, [id number], Substance Use Disorder, Preventing Hypertension, Obesity, Adult, [id number], Hypertension (ED) Additional Instructions: We recommend that the patient discontinue consumption of recreational drugs. Consumption of drugs can lead to , disability, paralysis, loss of quality of life. We recommend that the patient lose weight, and exercise as tolerated. Recommend that the patient take the prescribed blood pressure medication as directed, and aspirin as directed. Long-term complications of obesity and high blood pressure, which the patient is found to have today, can lead to , disability, paralysis, loss of quality of life. Recommend that the patient follow-up with a primary care doctor such as Dr. Guardado within the next month for outpatient health maintenance, and maintenance of high blood pressure and body mass index/obesity of 39. Recommend that the patient follow-up with a sleep physician, such as Dr. Orellana, within the next month, for outpatient sleep study, as the patient most likely has undiagnosed obstructive sleep apnea. Undiagnosed and untreated obstructive sleep apnea may cause stroke, heart attack, disability, , paralysis, loss of quality of life. Recommend that the patient follow-up with a fugitive investigator for high blood pressure, presumed obstructive sleep apnea, and lower extremity swelling and edema, such as Dr. Johnson, within the next month. Please return to the emergency room right away with new pain, worsened pain, migration of pain, projectile vomiting, change in mental status, confusion, inability to tolerate liquid feeds, new, worsened or different symptoms not present on the initial emergency room evaluation. Prescriptions: amLODIPine 10 mg PO DAILY #30 tab Aspirin 325 mg PO QDAY #30 tablet lisinopriL [Lisinopril] 10 mg PO QDAY #30 tablet Referrals: JOHANA ORELLANA MD [Staff Physician] - 3-5 Days SEVERINO JOHNSON MD [Staff Physician] - 3-5 Days KENNY GUARDADO MD [Staff Physician] - 3-5 Days
[2021-01-07 04:25] LABS: Mucus,Urine FEW /HPF
[2021-01-07 04:28] LABS: Blood,Urine Negative (Negative); Color,Urine Yellow (Yellow); Urobilinogen,Urine < 2.0 mg/dL (<2.0)
[2021-01-07 04:34] LABS: Amphetamine Screen,Urine PRESUMPTIVE NEGATIVE; Benzodiazepines Screen,Urine PRESUMPTIVE NEGATIVE; Cannabinoid Screen,Urine PRESUMPTIVE NEGATIVE; Cocaine Screen,Urine PRESUMPTIVE NEGATIVE; Methadone Screen,Urine PRESUMPTIVE NEGATIVE; Opiate Screen,Urine PRESUMPTIVE NEGATIVE
--- NOTE | 2021-01-07 04:52 | XRay Report ---
CHEST 2 VIEWS INDICATION / CLINICAL INFORMATION: dyspnea. COMPARISON: None available. FINDINGS: SUPPORT DEVICES: None. HEART / MEDIASTINUM: No significant abnormality. LUNGS / PLEURA: No significant pulmonary or pleural abnormality. No pneumothorax. ADDITIONAL FINDINGS: No significant additional findings. IMPRESSION: 1. No acute findings. Signer Name: Michael Ramesh MD Signed: 01/07/2021 4:48 AM Workstation Name: [id number]
[2021-01-07 05:16] LABS: Hematocrit 44.5 % (35.5-45.6); Hemoglobin 14.4 gm/dl (11.8-15.2)
[2021-01-07 05:29] LABS: BUN/Creatinine Ratio 21; Blood Urea Nitrogen 19 mg/dL (9-20); Calcium 8.8 mg/dL (8.4-10.2); Hemolysis Index 84
[2021-01-07] MEDS ORDERED: LISINOPRIL 10 MG TAB PO ONE (05:44)
[2021-01-07] MEDS ORDERED: amLODIPine 5 MG TAB PO ONE (05:44)
--- NOTE | 2021-01-07 14:24 | Electrocardiograph Report ---
[facility] Test Date: 2021-01-07 Test Time: 04:22:50 Pat Name: ZANDER BORREGO Department: ED Room: Gender: M Staff Radiologist: DAKOTA : 1975 Requested By: ZION SNOWDEN Order Number: [id number] Reading MD: Markell Shannon Measurements Intervals Willis Rate: 76 P: 46 NC: 143 QRS: 21 QRSD: 100 T: -15 QT: 386 QTc: 434 Interpretive Statements Sinus rhythm ST elevation, consider acute inferolateral TN in evolution No previous ECG available for comparison Electronically Signed On 01-07-2021 14:24:18 EDT by Markell Shannon
== END 2021-01-07 06:41 | disposition home or self-care (01) ==
LOC: ED 00:10 → EEVIPCON 00:10 → ED 06:41
DX: F19.10 Other psychoactive substance abuse, uncomplicated (principal); R06.00 Dyspnea, unspecified; M79.89 Other specified soft tissue disorders; I10 Essential (primary) hypertension; I25.2 Old myocardial infarction; F20.9 Schizophrenia, unspecified; J45.909 Unspecified asthma, uncomplicated; Z68.39 Body mass index [BMI] 39.0-39.9, adult; Z98.890 Other specified postprocedural states; Z79.899 Other long term (current) drug therapy; Z88.8 Allergy status to other drugs, medicaments and biological substances
CPT/HCPCS: 36415; 71046; 80048; 80307; 80320; 81001; 82550; 83735; 83880; 85014; 85018; 85049; 93005; G0480

== ENCOUNTER 2021-01-09 02:34 | Emergency (ER) | payer SELFPAY | END 2021-01-09 02:39 | disposition left against medical advice (07) | LOC: ED 02:34 ==

== ENCOUNTER 2021-01-25 22:50 | Emergency (ER) | payer SELFPAY ==
[2021-01-25 23:43] VITALS: BP 159/91
[2021-01-26 01:36] LABS: Basophils # (Auto) 0.1 K/mm3 (0.0-0.1); Basophils % (Auto) 1.1 % (0.0-1.8); Eosinophils # (Auto) 0.1 K/mm3 (0.0-0.4); Eosinophils % (Auto) 1.6 % (0.0-4.3); Hematocrit 43.9 % (35.5-45.6); Hemoglobin 14.7 gm/dl (11.8-15.2); Lymphocytes # (Auto) 2.2 K/mm3 (1.2-5.4); Mean Corpuscular HGB Conc 34 % (32-34); Mean Corpuscular Volume 82 fl (84-94); Monocytes # (Auto) 0.8 K/mm3 (0.0-0.8); Monocytes % (Auto) 9.6 % (0.0-7.3); Platelet Count 248 K/mm3 (140-440); Red Blood Count 5.33 M/mm3 (3.65-5.03); Red Cell Distribution Width 14.5 % (13.2-15.2)
[2021-01-26 01:50] LABS: BUN/Creatinine Ratio 17; Blood Urea Nitrogen 17 mg/dL (9-20); Calcium 8.9 mg/dL (8.4-10.2); Hemolysis Index 21
== END 2021-01-26 01:00 | disposition left against medical advice (07) ==
LOC: ED 22:50
DX: Z00.8 Encounter for other general examination (principal); Z53.21 Procedure and treatment not carried out due to patient leaving prior to being seen by health care provider
CPT/HCPCS: 36415; 80048; 80320; 85025; G0480

== ENCOUNTER 2021-01-28 01:59 | Emergency (ER) | payer SELFPAY ==
--- NOTE | 2021-01-28 02:27 | Emergency Department Report ---
ED Fall HPI - General Chief Complaint: Fall Stated Complaint: FALL/LEG PAIN Time Seen by Provider: 01/28/21 02:23 Source: patient Mode of arrival: Ambulatory Limitations: No Limitations - History of Present Illness Initial Comments: Patient is a 45-year-old male who presents emergency room with complaints of fall, lower back pain and right knee pain. Patient states he fell and hit his lower back and is having pain. Patient states that he twisted his knee and hit his right knee as well during the fall. Patient states pain is a 10 out of 10. States pain is better with rest and worse with movement. Patient states that he is having difficulty walking due to the fall and the knee pain. Patient denies loss of conscious. Patient denies hitting his head. Patient states he was trying to get a beehive down and slipped and fell. Patient denies other injury. Patient denies chest pain or shortness of breath. Patient denies recent travel. Patient denies recent international travel. Patient denies exposure to the novel coronavirus. Patient denies sick contacts. Patient denies fever and chills. Patient denies cough. Patient denies diar rowena. Patient denies coming in contact with anybody with symptoms of the novel coronavirus. Complaint: fall -: Sudden Fall From: standing When Fall Occurred: 1 hour GEOCHEMIST Fall Witnessed: yes, by family Place Fall Occurred: home Loss of Consciousness: none Prolonged Down Time?: no Symptoms Prior to Fall: none Location: back Location - Extremities: Right: Knee Severity: severe Severity scale (0 -10): 10 Quality: sharp Context: tripped/slipped Associated Symptoms: denies. denies: headache, neck pain, numbness, weakness, chest paint, shortness of breath, abdominal pain, hematuria, unable to walk, lightheaded, vertigo, confusion - Related Data Home Medications Medication Instructions Recorded Confirmed Last Taken Aspirin [Adult Aspirin] 81 mg PO DAILY 11/21/19 11/21/19 Unknown Nitroglycerin 1 tab SL PRN 11/22/19 Unknown Previous Rx's Medication Instructions Recorded Last Taken Type buPROPion XL [Wellbutrin Xl] 150 mg PO QAM #30 tab.er.24h 12/30/20 Unknown Rx risperiDONE [RisperDAL] 2 mg PO DAILY #30 tablet 12/30/20 Unknown Rx Aspirin 325 mg PO QDAY #30 tablet 01/07/21 Unknown Rx amLODIPine 10 mg PO DAILY #30 tab 01/07/21 Unknown Rx lisinopriL [Lisinopril] 10 mg PO QDAY #30 tablet 01/07/21 Unknown Rx Allergies Allergy/AdvReac Type Severity Reaction Status Date / Time haloperidol [From Haldol] Allergy Swelling Verified 11/08/19 17:38 ED Review of Systems ROS: Stated complaint: FALL/LEG PAIN Other details as noted in HPI Constitutional: denies: chills, fever Eyes: denies: eye pain, eye discharge, vision change ENT: denies: ear pain, throat pain Respiratory: denies: cough, shortness of breath, wheezing Cardiovascular: denies: chest pain, palpitations Endocrine: no symptoms reported Gastrointestinal: denies: abdominal pain, nausea, diarrhea Genitourinary: denies: urgency, dysuria Musculoskeletal: denies: back pain, joint swelling, arthralgia Skin: denies: rash, lesions Neurological: denies: headache, weakness, paresthesias Psychiatric: denies: anxiety, depression Hematological/Lymphatic: denies: easy bleeding, easy bruising ED Past Medical Hx - Past Medical History Previous Medical History?: Yes Hx Hypertension: Yes Hx Heart Attack/AMI: Yes (05/2019) Hx Congestive Heart Failure: No Hx Diabetes: No Hx Psychiatric Treatment: Yes (schizophrenia, Bipolar, Depression) Hx Asthma: Yes Hx COPD: No - Surgical History Past Surgical History?: Yes Hx Coronary Stent: Yes (x2 stents) Additional Surgical History: stents x 2 - Family History Family history: no significant - Social History Smoking Status: Never Smoker Substance Use Type: None - Medications Home Medications: Home Medications Medication Instructions Recorded Confirmed Last Taken Type Aspirin [Adult Aspirin] 81 mg PO DAILY 11/21/19 11/21/19 Unknown History Nitroglycerin 1 tab SL PRN 11/22/19 Unknown History buPROPion XL [Wellbutrin Xl] 150 mg PO QAM #30 tab.er.24h 12/30/20 01/07/21 Unknown Rx risperiDONE [RisperDAL] 2 mg PO DAILY #30 tablet 12/30/20 01/07/21 Unknown Rx Aspirin 325 mg PO QDAY #30 tablet 01/07/21 Unknown Rx amLODIPine 10 mg PO DAILY #30 tab 01/07/21 Unknown Rx lisinopriL [Lisinopril] 10 mg PO QDAY #30 tablet 01/07/21 Unknown Rx ED Physical Exam - General Limitations: No Limitations General appearance: alert, in no apparent distress - Head Head exam: Present: atraumatic, normocephalic - Eye Eye exam: Present: normal appearance - ENT ENT exam: Present: mucous membranes moist - Neck Neck exam: Present: normal inspection - Respiratory Respiratory exam: Present: normal lung sounds bilaterally. Absent: respiratory distress - Cardiovascular Cardiovascular Exam: Present: regular rate, normal rhythm. Absent: systolic murmur, diastolic murmur, rubs, gallop - GI/Abdominal GI/Abdominal exam: Present: soft, normal bowel sounds - Rectal Rectal exam: Present: deferred - Extremities Exam Extremities exam: Present: normal inspection - Back Exam Back exam: Present: normal inspection - Neurological Exam Neurological exam: Present: alert, oriented X3 - Psychiatric Psychiatric exam: Present: normal affect, normal mood - Skin Skin exam: Present: warm, dry, intact, normal color. Absent: rash ED Course Vital Signs 01/28/21 01/28/21 01/28/21 02:03 02:25 02:30 Temperature 98.0 F Pulse Rate 93 H 91 H Respiratory 18 14 Rate Blood Pressure 163/96 151/82 O2 Sat by Pulse 95 97 100 Oximetry 01/28/21 01/28/21 01/28/21 02:53 03:00 03:16 Temperature Pulse Rate 87 83 81 Respiratory 13 20 Rate Blood Pressure 151/82 173/96 173/96 O2 Sat by Pulse 99 100 Oximetry - Reevaluation(s) Reevaluation #1: I went to the room to discuss the patient's discharge instructions and the patient has a low. Discharge instructions had already been prepared. Patient was stable for discharge. Patient did not require any further emergency medical services. Patient did not require inpatient services. Patient's discharge instructions will be given to the nurse. 01/28/21 03:03 ED Medical Decision Making - Radiology Data Radiology results: report reviewed, image reviewed interpreted by me: Knee x-ray: No fracture, normal joint space, soft tissue normal, no acute findings. Lumbar spine x-ray: No acute fracture, normal joint space, no acute findings. Right knee radiograph, 3 views HISTORY: Pain COMPARISON: None FINDINGS: No acute fracture, malalignment, or joint effusion. IMPRESSION: No acute process of the right knee. XR spine lumbosacral 2-3V INDICATION / CLINICAL INFORMATION: Fall. COMPARISON: None available. FINDINGS: BONES/JOINT(S): No acute fracture. No significant malalignment. Mild lower lumbar spondylosis. PARASPINAL SOFT TISSUES:No significant abnormality. ADDITIONAL FINDINGS: None. IMPRESSION: 1. No acute findings. - Medical Decision Making Patient is a 45-year-old male who presents emergency room with complaints of right knee pain and lower back pain after a fall. Patient states he was trying to knock down the beehive when he fell. Patient had no other injuries or loss of consciousness patient had a an x-ray of his knee and lumbar spine and did not hit his head.. After the x-rays were done I went to the patient's room to discuss his discharge instructions and the patient had eloped prior to receiving his discharge instructions. Patient was stable for discharge anyway. - Differential Diagnosis Sprain, strain, fracture, knee pain, lower back pain, fall Critical care attestation.: If time is entered above; I have spent that time in minutes in the direct care of this critically ill patient, excluding procedure time. ED Disposition Clinical Impression: Strain of tendon of lower back Fall Qualifiers: Encounter type: initial encounter Qualified Code(s): W19.XXXA - Unspecified fall, initial encounter Lower back pain Qualifiers: Chronicity: acute Back pain laterality: bilateral Sciatica presence: without sciatica Qualified Code(s): M54.5 - Low back pain Knee pain Qualifiers: Chronicity: acute Laterality: right Qualified Code(s): M25.561 - Pain in right knee Knee contusion Qualifiers: Encounter type: initial encounter Laterality: right Qualified Code(s): S80.01XA - Contusion of right knee, initial encounter Contusion of lower back Qualifiers: Encounter type: initial encounter Qualified Code(s): S30.0XXA - Contusion of lower back and pelvis, initial encounter Disposition: ELOPED Is pt being admited?: No Does the pt Need Aspirin: No Condition: Stable Instructions: Back Exercises, [id number], Lumbosacral Strain, Contusion, [id number], Acute Knee Pain, Adult Additional Instructions: Patient to follow-up with primary care in 2 to 3 days. Patient to follow-up with Ortho in 2 to 3 days. Patient to rest. Patient to increase water. Patient to avoid strenuous exercise or heavy lifting until cleared by orthopedist and primary care. Patient to take Tylenol or ibuprofen as needed for pain. Patient to return to the ER if condition worsens, changes or new symptoms arise. Referrals: PRIMARY MD OLIVER [Primary Care Provider] - 2-3 Days PRECIOUS STEWART MD [Staff Physician] - 2-3 Days Time of Disposition: 03:28
--- NOTE | 2021-01-28 03:06 | XRay Report ---
XR spine lumbosacral 2-3V INDICATION / CLINICAL INFORMATION: Fall. COMPARISON: None available. FINDINGS: BONES/JOINT(S): No acute fracture. No significant malalignment. Mild lower lumbar spondylosis. PARASPINAL SOFT TISSUES:No significant abnormality. ADDITIONAL FINDINGS: None. IMPRESSION: 1. No acute findings. Signer Name: Nino Hull MD Signed: 01/28/2021 3:02 AM Workstation Name: [id number]
--- NOTE | 2021-01-28 03:07 | XRay Report ---
Right knee radiograph, 3 views HISTORY: Pain COMPARISON: None FINDINGS: No acute fracture, malalignment, or joint effusion. IMPRESSION: No acute process of the right knee. Signer Name: Nino Hull MD Signed: 01/28/2021 3:02 AM Workstation Name: [id number]
[2021-01-28 03:48] VITALS: BP 173/96
== END 2021-01-28 03:31 | disposition left against medical advice (07) ==
LOC: ED 01:59
DX: S39.012A Strain of muscle, fascia and tendon of lower back, initial encounter (principal); S80.01XA Contusion of right knee, initial encounter; M25.561 Pain in right knee; I25.2 Old myocardial infarction; F25.1 Schizoaffective disorder, depressive type; I10 Essential (primary) hypertension; J45.909 Unspecified asthma, uncomplicated; Z98.890 Other specified postprocedural states; Z79.899 Other long term (current) drug therapy; Z88.8 Allergy status to other drugs, medicaments and biological substances; W18.30XA Fall on same level, unspecified, initial encounter; Y93.89 Activity, other specified; Y92.009 Unspecified place in unspecified non-institutional (private) residence as the place of occurrence of the external cause; Y99.8 Other external cause status
CPT/HCPCS: 72100; 99282

== ENCOUNTER 2021-02-12 22:39 | Emergency (ER) | payer SELFPAY ==
[2021-02-13 00:44] LABS: Basophils # (Auto) 0.1 K/mm3 (0.0-0.1); Basophils % (Auto) 0.7 % (0.0-1.8); Eosinophils # (Auto) 0.1 K/mm3 (0.0-0.4); Hematocrit 43.3 % (35.5-45.6); Hemoglobin 14.3 gm/dl (11.8-15.2); Lymphocytes # (Auto) 2.2 K/mm3 (1.2-5.4); Lymphocytes % (Auto) 27.3 % (13.4-35.0); Mean Corpuscular HGB Conc 33 % (32-34); Mean Corpuscular Volume 83 fl (84-94); Monocytes # (Auto) 0.8 K/mm3 (0.0-0.8); Platelet Count 288 K/mm3 (140-440); Red Blood Count 5.21 M/mm3 (3.65-5.03); Red Cell Distribution Width 14.4 % (13.2-15.2)
[2021-02-13 00:53] LABS: Calcium 8.7 mg/dL (8.4-10.2)
[2021-02-13 01:55] LABS: Bilirubin,Urine NEG (Negative); Blood,Urine MOD (Negative); Color,Urine Yellow (Yellow); Mucus,Urine 3+ /HPF
[2021-02-13 01:56] LABS: Amphetamine Screen,Urine PRESUMPTIVE NEGATIVE; Benzodiazepines Screen,Urine PRESUMPTIVE NEGATIVE; Cannabinoid Screen,Urine PRESUMPTIVE NEGATIVE; Cocaine Screen,Urine PRESUMPTIVE POSITIVE; Methadone Screen,Urine PRESUMPTIVE NEGATIVE; Opiate Screen,Urine PRESUMPTIVE NEGATIVE
[2021-02-13 08:42] VITALS: BP 158/77
[2021-02-13] MEDS ORDERED: ASPIRIN 325 MG TAB PO ONE (09:18)
--- NOTE | 2021-02-13 09:24 | Emergency Department Report ---
HPI - General Chief Complaint: Psych Time Seen by Provider: 02/13/21 09:16 - HPI HPI: Room 12 The patient is a 45-year-old male present with a chief complaint of suicidal ideation and substance abuse. The patient states he came to the emergency department because he was "tripping too hard." Patient acknowledges using cocaine, heroin and some unknown pill last night to get high. Patient states he started "tripping too hard" and began "seeing stuff and hearing things." Patient states he was seeing objects dropped from behind trees and people and trees. Patient states he felt suicidal yesterday and is uncertain if he did anything to hurt himself or if he had a plan. Patient states he also developed some substernal chest pain last night but denies shortness of breath or nausea/vomiting ED Past Medical Hx - Past Medical History Previous Medical History?: Yes Hx Hypertension: Yes Hx Heart Attack/AMI: Yes (05/2019) Hx Psychiatric Treatment: Yes (schizophrenia, Bipolar, Depression) Hx Asthma: Yes - Surgical History Past Surgical History?: Yes Hx Coronary Stent: Yes (x2 stents) Additional Surgical History: stents x 2 - Family History Family history: no significant - Social History Smoking Status: Current Every Day Smoker (1/3 pack/day) Substance Use Type: Alcohol (Occasional), Cocaine, Heroin - Medications Home Medications: Home Medications Medication Instructions Recorded Confirmed Last Taken Type Aspirin [Adult Aspirin] 81 mg PO DAILY 11/21/19 11/21/19 Unknown History Nitroglycerin 1 tab SL PRN 11/22/19 Unknown History buPROPion XL [Wellbutrin Xl] 150 mg PO QAM #30 tab.er.24h 12/30/20 01/07/21 Unknown Rx risperiDONE [RisperDAL] 2 mg PO DAILY #30 tablet 12/30/20 01/07/21 Unknown Rx Aspirin 325 mg PO QDAY #30 tablet 01/07/21 Unknown Rx amLODIPine 10 mg PO DAILY #30 tab 01/07/21 Unknown Rx lisinopriL [Lisinopril] 10 mg PO QDAY #30 tablet 01/07/21 Unknown Rx ED Review of Systems ROS: Stated complaint: DRUG USE/SUICIDAL Other details as noted in HPI Constitutional: no symptoms reported Eyes: denies: eye pain ENT: denies: throat pain Respiratory: denies: shortness of breath Cardiovascular: chest pain Endocrine: no symptoms reported Gastrointestinal: denies: nausea, vomiting Genitourinary: denies: dysuria Musculoskeletal: denies: back pain Neurological: denies: headache Psychiatric: auditory hallucinations, visual hallucinations, suicidal thoughts Physical Exam - Physical Exam Vital Signs: Vital Signs 02/12/21 02/13/21 23:17 08:40 Temperature 98.2 F 98.1 F Pulse Rate 94 H 85 Respiratory 16 18 Rate Blood Pressure 158/77 Blood Pressure 158/80 [Right] O2 Sat by Pulse 96 96 Oximetry Physical Exam: GENERAL: The patient is well-developed well-nourished male standing in room not appearing to be in acute distress. [] HEENT: Normocephalic. Atraumatic. Extraocular motions are intact. Patient has moist mucous membranes. NECK: Supple. Trachea midline CHEST/LUNGS: Clear to auscultation. There is no respiratory distress noted. HEART/CARDIOVASCULAR: Regular. There is no tachycardia. There is no gallop rub or murmur. ABDOMEN: Abdomen is soft, nontender. Patient has normal bowel sounds. There is no abdominal distention. SKIN: There is no rash. There is no edema. There is no diaphoresis. NEURO: The patient is awake, alert, and oriented. The patient is cooperative. The patient has no focal neurologic deficits. The patient has normal speech and gait. GCS 15 MUSCULOSKELETAL: There is no evidence of acute injury. ED Course Vital Signs 02/12/21 02/13/21 23:17 08:40 Temperature 98.2 F 98.1 F Pulse Rate 94 H 85 Respiratory 16 18 Rate Blood Pressure 158/77 Blood Pressure 158/80 [Right] O2 Sat by Pulse 96 96 Oximetry ED Medical Decision Making - Lab Data Result diagrams: 02/13/21 00:03 02/13/21 00:03 Laboratory Tests 02/12/21 02/12/21 02/13/21 Unknown Unknown 00:03 WBC RBC Hgb Hct MCV MCH MCHC RDW Plt Count Lymph % (Auto) [place] % (Auto) Eos % (Auto) Baso % (Auto) Lymph # (Auto) [place] # (Auto) Eos # (Auto) Baso # (Auto) Seg Neutrophils % Seg Neutrophils # Sodium Potassium Chloride Carbon Dioxide Anion Gap BUN Creatinine Estimated GFR BUN/Creatinine Ratio Glucose Calcium Troponin T Urine Color Yellow Urine Turbidity Slightly-cloudy Urine pH 5.0 Ur Specific [place] 1.032 H Urine Protein 30 mg/dl Urine Glucose (UA) Neg Urine Ketones Neg Urine Blood Mod Urine Nitrite Neg Urine Bilirubin Neg Urine Urobilinogen 2.0 Ur Leukocyte Esterase Neg Urine WBC (Auto) 1.0 Urine RBC (Auto) 2.0 U Epithel Cells (Auto) < 1.0 Urine Mucus 3+ Salicylates < 0.3 L Urine Opiates Screen Presumptive negative Urine Methadone Screen Presumptive negative Acetaminophen Ur Barbiturates Screen Presumptive negative Ur Phencyclidine Scrn Presumptive negative Ur Amphetamines Screen Presumptive negative U Benzodiazepines Scrn Presumptive negative Urine Cocaine Screen Presumptive positive U Marijuana (THC) Screen Presumptive negative Drugs of Abuse Note Disclamer Plasma/Serum Alcohol 02/13/21 02/13/21 02/13/21 00:03 00:03 00:03 WBC RBC Hgb Hct MCV MCH MCHC RDW Plt Count Lymph % (Auto) [place] % (Auto) Eos % (Auto) Baso % (Auto) Lymph # (Auto) [place] # (Auto) Eos # (Auto) Baso # (Auto) Seg Neutrophils % Seg Neutrophils # Sodium 137 Potassium 3.5 L Chloride 96.8 L Carbon Dioxide 25 Anion Gap 19 BUN 26 H Creatinine 1.6 H Estimated GFR 57 BUN/Creatinine Ratio 16 Glucose 109 H Calcium 8.7 Troponin T Urine Color Urine Turbidity Urine pH Ur Specific [place] Urine Protein Urine Glucose (UA) Urine Ketones Urine Blood Urine Nitrite Urine Bilirubin Urine Urobilinogen Ur Leukocyte Esterase Urine WBC (Auto) Urine RBC (Auto) U Epithel Cells (Auto) Urine Mucus Salicylates Urine Opiates Screen Urine Methadone Screen Acetaminophen 5.0 L Ur Barbiturates Screen Ur Phencyclidine Scrn Ur Amphetamines Screen U Benzodiazepines Scrn Urine Cocaine Screen U Marijuana (THC) Screen Drugs of Abuse Note Plasma/Serum Alcohol < 0.01 02/13/21 02/13/21 00:03 09:39 WBC 8.2 RBC 5.21 H Hgb 14.3 Hct 43.3 MCV 83 L MCH 27 L MCHC 33 RDW 14.4 Plt Count 288 Lymph % (Auto) 27.3 [place] % (Auto) 10.0 H Eos % (Auto) 1.0 Baso % (Auto) 0.7 Lymph # (Auto) 2.2 [place] # (Auto) 0.8 Eos # (Auto) 0.1 Baso # (Auto) 0.1 Seg Neutrophils % 61.0 Seg Neutrophils # 5.0 Sodium Potassium Chloride Carbon Dioxide Anion Gap BUN Creatinine Estimated GFR BUN/Creatinine Ratio Glucose Calcium Troponin T < 0.010 Urine Color Urine Turbidity Urine pH Ur Specific [place] Urine Protein Urine Glucose (UA) Urine Ketones Urine Blood Urine Nitrite Urine Bilirubin Urine Urobilinogen Ur Leukocyte Esterase Urine WBC (Auto) Urine RBC (Auto) U Epithel Cells (Auto) Urine Mucus Salicylates Urine Opiates Screen Urine Methadone Screen Acetaminophen Ur Barbiturates Screen Ur Phencyclidine Scrn Ur Amphetamines Screen U Benzodiazepines Scrn Urine Cocaine Screen U Marijuana (THC) Screen Drugs of Abuse Note Plasma/Serum Alcohol - EKG Data -: EKG Interpreted by Me EKG shows normal: sinus rhythm Rate: normal - EKG Data When compared to previous EKG there are: no significant change Interpretation: unchanged when compared t (01/07/2021) - Differential Diagnosis Polysubstance abuse, schizophrenia, ACS Critical care attestation.: If time is entered above; I have spent that time in minutes in the direct care of this critically ill patient, excluding procedure time. ED Disposition Clinical Impression: Polysubstance abuse Schizophrenia Qualifiers: Schizophrenia type: unspecified Qualified Code(s): F20.9 - Schizophrenia, unspecified Disposition: DC-01 TO HOME OR SELFCARE Is pt being admited?: No Does the pt Need Aspirin: No Condition: Stable Instructions: Substance Use Disorder and Mental Illness, Schizophrenia Additional Instructions: In case of an emergency, please contact the following numbers: [place] Crisis and Access Line: Number: Crisis Text Line: (Text START) Number: [phone] Suicide Prevention Line: Number: Emergency Number: 911 SUBSTANCE ABUSE PROGRAMS: [facility]: Location: [place], [place] [employer] Address: [address] [place] [address] [facility] Recovery: Address: [address] [place] [id number] [facility]: Address: [address] [place] [address] [facility] Community: Address: [address] [place] [address] [facility] Address: [address] [place] [address]. Please contact above numbers to attempt placement into free based program. Medicaid Programs: [facility]: Address: [address] [place] [address] [facility]: Address: [address] [place] [address] Professional and Agency Contacts To help [facility] (06/02) [place] Crisis Line: Suicide Prevention Line: Crisis Text Line: Text START to 998256 Emergency: 911 Outpatient COMMUNITY Behavioral Health Resources: [place]: [facility] [address] [place], [place] [address] [place]: [facility] [address] [place] [address] Monday thru Monday - 8am - 5pm Call to schedule an assessment for mental health and substance abuse programs [place]: [facility] Address: [address] [place] [address] Monday thru Monday- 7am-2pm [facility] Address: [address] [place] [address] Monday thru Monday: 8:30AM-5PM Referrals: PRIMARY CAREMD [Primary Care Provider] - 3-5 Days Time of Disposition: 11:20
--- NOTE | 2021-02-13 10:11 | Consultation ---
History of Present Illness - Reason for Consult Consult date: 02/13/21 Reason for consult: drug use, SI - History of Present Psychiatric Illness Per ER Note: The patient is a 45-year-old male present with a chief complaint of suicidal ideation and substance abuse. The patient states he came to the emergency department because he was "tripping too hard." Patient acknowledges using cocaine, heroin and some unknown pill last night to get high. Patient s tates he started "tripping too hard" and began "seeing stuff and hearing things." Patient states he was seen [employer] dropped from behind trees and people and trees. Patient states he felt suicidal yesterday and is uncertain if he did anything to hurt himself or if he had a plan. Patient states he also developed some substernal chest pain last night but denies shortness of breath or nausea/vomiting. Jorge Lucio is a 45y/o male patient who was seen today. During my evaluation the patient is laughing, and being sarcastic with one of the sitters. He is going back and forth with her. The patient was then directed for me to speak with him. He is still laughing about the situation. He is cooperative and polite with me. The patient complains of chest pain. He says "I was getting high and started tripping." He then says "I started feeling suicidal and started having chest pain." The patient says he was using "cocaine, a little heroine and some pills." He denies SI/HI at present. He states "I was tripping on the drugs. But one of the times I'm gone lose my mind and it's not going to come back." He says "so I came here to get it checked." He denies hallucinations of any kind. The patient says he hasn't been taking his meds for about 2 weeks. He then says he only "takes them every 2 or three days anyway." I advised the patient about the importance and benefits of him complying. He laughs in agreement. PAST PSYCHIATRIC HISTORY: Diagnoses: Paranoid schizophrenia, depression Suicide attempts or Self-harm behavior: Yes tried jumping in front of moving ve hicle and cut self Prior psychiatric hospitalizations: Yes Substance Abuse history: Cocaine Previous psychiatric medications tried: Abilify, and Wellbutrin Outpatient treatment: Yes, at [facility] PAST MEDICAL HISTORY: HTN, CAD and GOUT Family Psychiatric History None reported or documented SOCIAL HISTORY Marital Status: Single Living Arrangements: With GF Employment Status: Unemployed Access to guns/weapons: None reported Education: GED History of Abuse: None reported Legal History: None REVIEW OF SYSTEMS Constitutional: Negative for weight loss ENT: Negative for stridor Respiratory: Negative for cough or hemoptysis All other systems reviewed and are negative MENTAL STATUS EXAMINATION General Appearance and Behavior: Age appropriate, good hygiene, wearing appropriate clothes, lying in bed, good eye contact, cooperative with questioning and polite Cooperation: Participating/engaged Psychomotor Behavior: unremarkable and within normal limits Mood: okay Affect and affective range: euthymic, laughing Thought Process: Fluent/Logical Thought Content: None Speech: Normal volume, Regular rate and rhythm Intellectual Functioning: Average Suicidal Ideation: Denies Homicidal Ideation: Denies HI Impulse Control: Unimpaired Insight and Judgment: Normal insight and judgment Attention: Normal Orientation: Alert, oriented, anxious Assessment and Plan Cocaine Dependence with Substance induced mood disorder Current Visit: Yes Status: Acute RECOMMENDATIONS The patient to resume his home meds and comply with treatment regimen Risks, benefits and alternatives of medications discussed with the patient, questions answered and consent obtained from patient. PSYCHOTHERAPY: Supportive psychotherapy provided MEDICAL: Per primary team DELIRIUM PRECAUTIONS: Please re-orient patient frequently, keep lights on during the day, and minimize benzodiazepines and opiates as these medications could worsen patient's confusion. 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 The patient is cleared from psych once he is medically cleared. He is to abstain from all illicit drug use He is to follow up with outpatient psych in 7 to 14 days Manufacturing Controller to further discuss safety plan. FOLLOW-UP: Will sign off Thank you for the consult. Please contact with any questions and/or concerns.Per ED Medications and Allergies Allergies Allergy/AdvReac Type Severity Reaction Status Date / Time haloperidol [From Haldol] Allergy Swelling Verified 11/08/19 17:38 Home Medications Medication Instructions Recorded Confirmed Last Taken Type Aspirin [Adult Aspirin] 81 mg PO DAILY 11/21/19 11/21/19 Unknown History Nitroglycerin 1 tab SL PRN 11/22/19 Unknown History buPROPion XL [Wellbutrin Xl] 150 mg PO QAM #30 tab.er.24h 12/30/20 01/07/21 Unknown Rx risperiDONE [RisperDAL] 2 mg PO DAILY #30 tablet 12/30/20 01/07/21 Unknown Rx Aspirin 325 mg PO QDAY #30 tablet 01/07/21 Unknown Rx amLODIPine 10 mg PO DAILY #30 tab 01/07/21 Unknown Rx lisinopriL [Lisinopril] 10 mg PO QDAY #30 tablet 01/07/21 Unknown Rx Mental Status Exam - Vital signs Last Vital Signs Temp 98.1 F 02/13/21 08:40 Pulse 85 02/13/21 08:40 Resp 16 02/13/21 09:54 BP 158/77 02/13/21 08:40 Pulse Ox 96 02/13/21 09:54 Results Result Diagrams: 02/13/21 00:03 02/13/21 00:03 Abnormal lab results 02/12/21 02/13/21 02/13/21 Range/Units Unknown 00:03 00:03 RBC (3.65-5.03) M/mm3 MCV (84-94) fl MCH (28-32) pg [place] % (Auto) (0.0-7.3) % Potassium (3.6-5.0) mmol/L Chloride (98-107) mmol/L BUN (9-20) mg/dL Creatinine (0.8-1.3) mg/dL Glucose (75-100) mg/dL Ur Specific [place] 1.032 H (1.003-1.030) Salicylates < 0.3 L (2.8-20.0) mg/dL Acetaminophen 5.0 L (10.0-30.0) ug/mL 02/13/21 02/13/21 Range/Units 00:03 00:03 RBC 5.21 H (3.65-5.03) M/mm3 MCV 83 L (84-94) fl MCH 27 L (28-32) pg [place] % (Auto) 10.0 H (0.0-7.3) % Potassium 3.5 L (3.6-5.0) mmol/L Chloride 96.8 L (98-107) mmol/L BUN 26 H (9-20) mg/dL Creatinine 1.6 H (0.8-1.3) mg/dL Glucose 109 H (75-100) mg/dL Ur Specific [place] (1.003-1.030) Salicylates (2.8-20.0) mg/dL Acetaminophen (10.0-30.0) ug/mL All other labs normal.
--- NOTE | 2021-02-15 10:37 | Electrocardiograph Report ---
[facility] Test Date: 2021-02-13 Test Time: 09:36:06 Pat Name: ZANDER BORREGO Department: Room: Gender: M Outpatient Case Manager: [place] : 1975 Requested By: FREDA RAMSAY Order Number: [id number] Reading MD: Lorenzo Mcdonnell Measurements Intervals [place] Rate: 80 P: 78 [place]: 158 QRS: 15 QRSD: 100 T: -66 QT: 396 QTc: 458 Interpretive Statements Sinus rhythm Nonspecific T abnormalities, inferior leads Compared to ECG 01/07/2021 04:22:50 T-wave abnormality now present Myocardial infarct finding no longer present Electronically Signed On 02-15-2021 10:37:12 EDT by Lorenzo Mcdonnell
== END 2021-02-13 11:30 | disposition home or self-care (01) ==
LOC: ED 22:39
DX: R45.851 Suicidal ideations (principal); F19.10 Other psychoactive substance abuse, uncomplicated; I10 Essential (primary) hypertension; I21.9 Acute myocardial infarction, unspecified; F31.9 Bipolar disorder, unspecified; F20.9 Schizophrenia, unspecified; F17.200 Nicotine dependence, unspecified, uncomplicated; F14.10 Cocaine abuse, uncomplicated
CPT/HCPCS: 36415; 80048; 80307; 80320; 81001; 84484; 85025; 93005; 99284; G0480

== ENCOUNTER 2021-02-14 02:10 | Emergency (ER) | payer SELFPAY | END 2021-02-14 02:15 | disposition left against medical advice (07) | LOC: ED 02:10 | DX: Z00.8 Encounter for other general examination (principal); Z53.21 Procedure and treatment not carried out due to patient leaving prior to being seen by health care provider ==

== ENCOUNTER 2021-02-16 23:43 | Emergency (ER) | payer SELFPAY ==
[2021-02-17] MEDS ORDERED: ACETAMINOPHEN 500 MG TAB PO ONE (05:13)
[2021-02-17] MEDS ORDERED: dexAMETHasone 20 MG/5 ML VIAL IM ONE (05:13)
--- NOTE | 2021-02-17 05:16 | XRay Report ---
CHEST 2 VIEWS INDICATION / CLINICAL INFORMATION: body ache, cold sweat. COMPARISON: 01/07/21 FINDINGS: SUPPORT DEVICES: None. HEART / MEDIASTINUM: No significant abnormality. LUNGS / PLEURA: No significant pulmonary or pleural abnormality. No pneumothorax. ADDITIONAL FINDINGS: No significant additional findings. IMPRESSION: 1. No acute findings. No significant change. Signer Name: Jelani Levine MD Signed: 02/17/2021 5:12 AM Workstation Name: [id number]
--- NOTE | 2021-02-17 05:56 | Emergency Department Report ---
ED General Adult HPI - General Chief complaint: Pain General Stated complaint: BODY PAIN,COLD SWEAT Time Seen by Provider: 02/17/21 05:12 Source: patient Mode of arrival: Ambulatory Limitations: No Limitations - History of Present Illness Initial comments: Patient is a 45-year-old male who presents for generalized body aches and malaise x2 days. Patient denies suspicious travel or contacts. Patient states low-grade Fever, no T-max recorded at home temp is 98.0 in triage today. Patient states he took ibuprofen prior to arrival patient is tolerating p.o. intake, there is no nausea vomiting , there is no wheezing or stridor noted. Patient denies shortness of breath at this time. There is no chest pain.. Symptoms are exacerbated by activity. Symptoms are relieved by nothing tried. - Related Data Home Medications Medication Instructions Recorded Confirmed Last Taken Aspirin [Adult Aspirin] 81 mg PO DAILY 11/21/19 11/21/19 Unknown Nitroglycerin 1 tab SL PRN 11/22/19 Unknown Previous Rx's Medication Instructions Recorded Last Taken Type buPROPion XL [Wellbutrin Xl] 150 mg PO QAM #30 tab.er.24h 12/30/20 Unknown Rx risperiDONE [RisperDAL] 2 mg PO DAILY #30 tablet 12/30/20 Unknown Rx Aspirin 325 mg PO QDAY #30 tablet 01/07/21 Unknown Rx amLODIPine 10 mg PO DAILY #30 tab 01/07/21 Unknown Rx lisinopriL [Lisinopril] 10 mg PO QDAY #30 tablet 01/07/21 Unknown Rx Albuterol Mdi (or & Nicu Only) 2 puff IH QID PRN #8.5 gram 02/17/21 Unknown Rx [ProAir HFA Inhaler] Ibuprofen [Motrin 800 MG tab] 800 mg PO Q8HR PRN #30 tablet 02/17/21 Unknown Rx dexAMETHasone [Decadron] 4 mg PO BID 3 Days #6 tablet 02/17/21 Unknown Rx Allergies Allergy/AdvReac Type Severity Reaction Status Date / Time haloperidol [From Haldol] Allergy Swelling Verified 11/08/19 17:38 ED Review of Systems ROS: Stated complaint: BODY PAIN,COLD SWEAT Other details as noted in HPI Constitutional: malaise Eyes: denies: eye pain, eye discharge, vision change ENT: congestion. denies: ear pain, throat pain, dental pain, hearing loss Respiratory: denies: cough, shortness of breath, wheezing Cardiovascular: denies: chest pain, palpitations Endocrine: no symptoms reported Gastrointestinal: denies: abdominal pain, nausea, vomiting, diarrhea, constipation, melena Genitourinary: denies: urgency, dysuria Musculoskeletal: denies: back pain, joint swelling, arthralgia Skin: denies: rash, lesions Neurological: denies: headache, weakness, paresthesias Psychiatric: denies: anxiety, depression Hematological/Lymphatic: denies: easy bleeding, easy bruising ED Past Medical Hx - Past Medical History Previous Medical History?: Yes Hx Hypertension: Yes Hx Heart Attack/AMI: Yes (05/2019) Hx Congestive Heart Failure: No Hx Diabetes: No Hx Psychiatric Treatment: Yes (schizophrenia, Bipolar, Depression) Hx Asthma: Yes Hx COPD: No - Surgical History Past Surgical History?: Yes Hx Coronary Stent: Yes (x2 stents) Additional Surgical History: stents x 2 - Social History Smoking Status: Current Every Day Smoker Substance Use Type: Alcohol - Medications Home Medications: Home Medications Medication Instructions Recorded Confirmed Last Taken Type Aspirin [Adult Aspirin] 81 mg PO DAILY 11/21/19 11/21/19 Unknown History Nitroglycerin 1 tab SL PRN 11/22/19 Unknown History buPROPion XL [Wellbutrin Xl] 150 mg PO QAM #30 tab.er.24h 12/30/20 01/07/21 Unknown Rx risperiDONE [RisperDAL] 2 mg PO DAILY #30 tablet 12/30/20 01/07/21 Unknown Rx Aspirin 325 mg PO QDAY #30 tablet 01/07/21 Unknown Rx amLODIPine 10 mg PO DAILY #30 tab 01/07/21 Unknown Rx lisinopriL [Lisinopril] 10 mg PO QDAY #30 tablet 01/07/21 Unknown Rx Albuterol Mdi (or & Nicu Only) 2 puff IH QID PRN #8.5 gram 02/17/21 Unknown Rx [ProAir HFA Inhaler] Ibuprofen [Motrin 800 MG tab] 800 mg PO Q8HR PRN #30 tablet 02/17/21 Unknown Rx dexAMETHasone [Decadron] 4 mg PO BID 3 Days #6 tablet 02/17/21 Unknown Rx ED Physical Exam - General Limitations: No Limitations General appearance: alert, in no apparent distress - Head Head exam: Present: normocephalic, normal inspection - Eye Eye exam: Present: normal appearance, PERRL, EOMI Pupils: Present: normal accommodation - ENT ENT exam: Present: normal exam, normal orophraynx, mucous membranes moist, normal external ear exam - Neck Neck exam: Present: normal inspection, full ROM. Absent: tenderness, lymphadenopathy, thyromegaly - Respiratory Respiratory exam: Present: normal lung sounds bilaterally, chest wall tenderness (right anterior latera chest wall tendereness to deep palpation, no step off no crepitus. ). Absent: respiratory distress, wheezes, stridor - Cardiovascular Cardiovascular Exam: Present: regular rate, normal rhythm, normal heart sounds. Absent: systolic murmur, diastolic murmur, rubs, gallop - GI/Abdominal GI/Abdominal exam: Present: soft, normal bowel sounds. Absent: distended, tenderness, guarding, rebound, rigid, bruit, hernia - Rectal Rectal exam: Present: deferred - Extremities Exam Extremities exam: Present: normal inspection, full ROM, tenderness, normal capillary refill, pedal edema, joint swelling - Back Exam Back exam: Present: normal inspection, full ROM. Absent: CVA tenderness (R), CVA tenderness (L), vertebral tenderness, rash noted - Neurological Exam Neurological exam: Present: alert, oriented X3, CN II-XII intact, normal gait. Absent: altered - Psychiatric Psychiatric exam: Present: normal affect, normal mood - Skin Skin exam: Present: warm, dry, intact, normal color. Absent: rash ED Course Vital Signs 02/17/21 01:39 Temperature 98.0 F Pulse Rate 89 Respiratory 18 Rate Blood Pressure 120/91 O2 Sat by Pulse 98 Oximetry ED Medical Decision Making - Radiology Data Radiology results: report reviewed, image reviewed INDICATION / CLINICAL INFORMATION: body ache, cold sweat. COMPARISON: 01/07/21 FINDINGS: SUPPORT DEVICES: None. HEART / MEDIASTINUM: No significant abnormality. LUNGS / PLEURA: No significant pulmonary or pleural abnormality. No pneumothorax. ADDITIONAL FINDINGS: No significant additional findings. IMPRESSION: 1. No acute findings. No significant change. Signer Name: Jelani Levine MD Signed: 02/17/2021 5:12 AM Workstation Name: [id number] Transcribed By: DT Dictated By: Derek Levine MD Electronically Authenticated By: Derek Levine MD Signed Date/Time: 02/17/21511 DD/ 0 TD/TT: - Medical Decision Making Patient with history of asthma symptoms are improved with medication given in ED. Chest x-ray normal no infiltrates no opacities. Wheezing is resolved. Plan DC to home with prescriptions. Patient will follow-up with patient verbalized agreement and understanding with discharge plan. Patient will be DC' d to home at this time in stable condition at this time. Critical care attestation.: If time is entered above; I have spent that time in minutes in the direct care of this critically ill patient, excluding procedure time. ED Disposition Clinical Impression: Viral syndrome URI (upper respiratory infection) Qualifiers: URI type: unspecified URI Qualified Code(s): J06.9 - Acute upper respiratory infection, unspecified Disposition: DC-01 TO HOME OR SELFCARE Is pt being admited?: No Does the pt Need Aspirin: No Condition: Stable Instructions: Viral Respiratory Infection, Acute Bronchitis, Adult, [id number] Additional Instructions: Take medications as prescribed. Follow-up with your doctor in 2 to 3 days. Hydrate as directed. Return to emergency should symptoms worsen. Prescriptions: dexAMETHasone [Decadron] 4 mg PO BID 3 Days #6 tablet Ibuprofen [Motrin 800 MG tab] 800 mg PO Q8HR PRN #30 tablet PRN Reason: bodyaches fever Albuterol Mdi (or & Nicu Only) [ProAir HFA Inhaler] 2 puff IH QID PRN #8.5 gram PRN Reason: Shortness Of Breath Referrals: SEBASTIÁN JOHNSON MD [Staff Physician] - 3-5 Days Forms: Work/School Release Form(ED) Time of Disposition: 06:23
[2021-02-17 07:46] VITALS: BP 118/76
== END 2021-02-17 07:45 | disposition home or self-care (01) ==
LOC: ED 23:43
DX: B34.9 Viral infection, unspecified (principal); J06.9 Acute upper respiratory infection, unspecified; I10 Essential (primary) hypertension; I25.2 Old myocardial infarction; F31.9 Bipolar disorder, unspecified; F20.9 Schizophrenia, unspecified; F17.200 Nicotine dependence, unspecified, uncomplicated
CPT/HCPCS: 71046; 96372; 99283; J1100

== ENCOUNTER 2021-03-01 22:43 | Emergency (ER) | payer OTHER ==
[2021-03-02 03:36] VITALS: BP 154/87
--- NOTE | 2021-03-02 03:51 | Emergency Department Report ---
- General Chief Complaint: Upper Respiratory Infection Stated Complaint: BODY PAIN/GENERAL UNWELL FEELING Time Seen by Provider: 03/02/21 03:40 Source: patient Mode of arrival: Ambulatory Limitations: No Limitations - History of Present Illness Initial Comments: For follow-up of medical medical history of asthma presents emerged from complaining of 3 to 4-day history of cough congestion with clear nasal drainage states that he is out of his albuterol inhaler and needs as medication help control his cough reports no hemoptysis no hematemesis hematochezia no orthopnea no dyspnea no high fevers no diarrhea no foreign travel no known contact with coronavirus. MD Complaint: cough, rhinorrhea, nasal congestion -: Gradual (3 days) Severity: mild Quality: dull Consistency: constant Associated Symptoms: rhinorrhea, cough - Related Data Home Medications Medication Instructions Recorded Confirmed Last Taken Aspirin [Adult Aspirin] 81 mg PO DAILY 11/21/19 11/21/19 Unknown Nitroglycerin 1 tab SL PRN 11/22/19 Unknown Previous Rx's Medication Instructions Recorded Last Taken Type buPROPion XL [Wellbutrin Xl] 150 mg PO QAM #30 tab.er.24h 12/30/20 Unknown Rx risperiDONE [RisperDAL] 2 mg PO DAILY #30 tablet 12/30/20 Unknown Rx Aspirin 325 mg PO QDAY #30 tablet 01/07/21 Unknown Rx amLODIPine 10 mg PO DAILY #30 tab 01/07/21 Unknown Rx lisinopriL [Lisinopril] 10 mg PO QDAY #30 tablet 01/07/21 Unknown Rx Ibuprofen [Motrin 800 MG tab] 800 mg PO Q8HR PRN #30 tablet 02/17/21 Unknown Rx dexAMETHasone [Decadron] 4 mg PO BID 3 Days #6 tablet 02/17/21 Unknown Rx Albuterol Mdi (or & Nicu Only) 2 puff IH QID PRN #8.5 gram 03/02/21 Unknown Rx [ProAir HFA Inhaler] Benzonatate [Tessalon Perles] 100 mg PO Q8HR #30 capsule 03/02/21 Unknown Rx Allergies Allergy/AdvReac Type Severity Reaction Status Date / Time haloperidol [From Haldol] Allergy Swelling Verified 03/02/21 03:26 ED Review of Systems ROS: Stated complaint: BODY PAIN/GENERAL UNWELL FEELING Other details as noted in HPI Comment: All other systems reviewed and negative ED Past Medical Hx - Past Medical History Previous Medical History?: Yes Hx Hypertension: Yes Hx Heart Attack/AMI: Yes (05/2019) Hx Congestive Heart Failure: No Hx Diabetes: No Hx Psychiatric Treatment: Yes (schizophrenia, Bipolar, Depression) Hx Asthma: Yes Hx COPD: No - Surgical History Past Surgical History?: Yes Hx Coronary Stent: Yes (x2 stents) Additional Surgical History: stents x 2 - Social History Smoking Status: Current Every Day Smoker Substance Use Type: Alcohol - Medications Home Medications: Home Medications Medication Instructions Recorded Confirmed Last Taken Type Aspirin [Adult Aspirin] 81 mg PO DAILY 11/21/19 11/21/19 Unknown History Nitroglycerin 1 tab SL PRN 11/22/19 Unknown History buPROPion XL [Wellbutrin Xl] 150 mg PO QAM #30 tab.er.24h 12/30/20 01/07/21 Unknown Rx risperiDONE [RisperDAL] 2 mg PO DAILY #30 tablet 12/30/20 01/07/21 Unknown Rx Aspirin 325 mg PO QDAY #30 tablet 01/07/21 Unknown Rx amLODIPine 10 mg PO DAILY #30 tab 01/07/21 Unknown Rx lisinopriL [Lisinopril] 10 mg PO QDAY #30 tablet 01/07/21 Unknown Rx Ibuprofen [Motrin 800 MG tab] 800 mg PO Q8HR PRN #30 tablet 02/17/21 Unknown Rx dexAMETHasone [Decadron] 4 mg PO BID 3 Days #6 tablet 02/17/21 Unknown Rx Albuterol Mdi (or & Nicu Only) 2 puff IH QID PRN #8.5 gram 03/02/21 Unknown Rx [ProAir HFA Inhaler] Benzonatate [Tessalon Perles] 100 mg PO Q8HR #30 capsule 03/02/21 Unknown Rx ED Physical Exam - General Limitations: No Limitations General appearance: alert, in no apparent distress - Head Head exam: Present: atraumatic, normocephalic - Eye Eye exam: Present: normal appearance, PERRL - ENT ENT exam: Present: normal orophraynx, mucous membranes moist, TM's normal bilaterally, other (Some nasal congestion is noted with some clear drainage. Airway patent tongue uvula midline no exudate pharynx clear) - Neck Neck exam: Present: normal inspection, full ROM - Respiratory Respiratory exam: Present: normal lung sounds bilaterally. Absent: respiratory distress, wheezes, rales, rhonchi, chest wall tenderness, accessory muscle use, decreased breath sounds - Cardiovascular Cardiovascular Exam: Present: regular rate, normal rhythm. Absent: systolic murmur, diastolic murmur, rubs, gallop - GI/Abdominal GI/Abdominal exam: Present: soft, normal bowel sounds - Rectal Rectal exam: Present: deferred - Extremities Exam Extremities exam: Present: normal inspection, normal capillary refill - Back Exam Back exam: Present: normal inspection. Absent: CVA tenderness (R), CVA tenderness (L) - Neurological Exam Neurological exam: Present: alert, oriented X3, CN II-XII intact - Psychiatric Psychiatric exam: Present: normal affect, normal mood - Skin Skin exam: Present: warm, dry, intact, normal color. Absent: rash ED Course Vital Signs 03/02/21 03:19 Temperature 97.6 F Pulse Rate 71 Respiratory 18 Rate Blood Pressure 154/87 [Left] O2 Sat by Pulse 98 Oximetry ED Medical Decision Making - Medical Decision Making This 45-year-old patient presents with symptoms suspicious for likely viral upper respiratory tract infection. Differential includes bacterial pneumonia, sinusitis, allergic rhinitis, hyperreactive airway disease, asthma. Do not suspect underlying Cardiopulmonary process. I considered but think unlikely dangerous cause of this patient symptoms to include acute coronary syndrome, CHF or COPD exacerbations, pneumonia, pneumothorax. Patient is nontoxic appearing and not in need of emergent medical intervention. Plan: Reassurance, reassessment, [id number] medications, discharge with PCP follow-up This patient presents with lower respiratory symptoms concerning for viral syndrome including flu. Patient does not meet criteria for COVID-19. Doubt pneumonia, sepsis or other serious bacterial infection or acute emergent condition. Is otherwise well- appearing with acceptable vitals and reassuring physical examination and is safe to be discharged home. Patient lacks serious medical comorbidities that would require admission. Patient is nontoxic and although symptomatic otherwise safe to go home. Will provide strict return precautions and instructions on self isolation/quarantine and anticipatory guidance. Critical care attestation.: If time is entered above; I have spent that time in minutes in the direct care of this critically ill patient, excluding procedure time. ED Disposition Clinical Impression: URI (upper respiratory infection) Disposition: HOME / SELF CARE / HOMELESS Is pt being admited?: No Does the pt Need Aspirin: No Condition: Stable Instructions: Cough, Adult, [id number], Upper Respiratory Infection, Adult, [id number] Prescriptions: Albuterol Mdi (or & Nicu Only) [ProAir HFA Inhaler] 2 puff IH QID PRN #8.5 gram PRN Reason: Shortness Of Breath Benzonatate [Tessalon Perles] 100 mg PO Q8HR #30 capsule Referrals: PRIMARY CAREMD [Primary Care Provider] - 3-5 Days SEBASTIÁN JOHNSON MD [Staff Physician] - 3-5 Days
== END 2021-03-02 04:30 | disposition left against medical advice (07) ==
LOC: ED 22:43
DX: J06.9 Acute upper respiratory infection, unspecified (principal); I10 Essential (primary) hypertension; I25.2 Old myocardial infarction; J45.909 Unspecified asthma, uncomplicated; F25.0 Schizoaffective disorder, bipolar type; F25.1 Schizoaffective disorder, depressive type; F17.200 Nicotine dependence, unspecified, uncomplicated; Z88.8 Allergy status to other drugs, medicaments and biological substances; Z79.899 Other long term (current) drug therapy; Z98.890 Other specified postprocedural states
CPT/HCPCS: 99282

== ENCOUNTER 2021-03-04 00:31 | Emergency (ER) | payer SELFPAY ==
[2021-03-04 03:18] VITALS: BP 151/99
== END 2021-03-04 03:30 | disposition left against medical advice (07) ==
LOC: ED 00:31
DX: R51.9 Headache, unspecified (principal); Z53.21 Procedure and treatment not carried out due to patient leaving prior to being seen by health care provider

== ENCOUNTER 2021-03-10 03:04 | Emergency (ER) | payer SELFPAY | END 2021-03-10 04:30 | disposition left against medical advice (07) | LOC: ED 03:04 | DX: Z00.00 Encounter for general adult medical examination without abnormal findings (principal); Z53.21 Procedure and treatment not carried out due to patient leaving prior to being seen by health care provider ==